=== PATIENT | female | born 1950 | race Caucasian/White ===

== ENCOUNTER 2020-02-26 10:15 | Emergency (ER) | payer MEDICARE, SELFPAY ==
--- NOTE | ~2020-02-26 | XR_ITS ---
EXAMINATION: XR chest 2V DATE: 02/26/2020 10:39 INDICATION: Chest pain and shortness of breath. TECHNIQUE: Frontal and lateral views of the chest were obtained. COMPARISON: Chest 2 views 12/10/2014 FINDINGS: There is mild scarring at the lung apices. No pleural effusion or pneumothorax. The heart s ize is normal. There is old fracture of left clavicle. There are old healed left rib fractures. Breas t implants are noted. IMPRESSION: 1. Mild scarring at the lung apices. Reviewed, dictated and finalized at location E.
--- NOTE | 2020-02-26 10:17 | ECG_ITS ---
Measurements Intervals [place] Rate: 54 P: 67 [place]: 236 QRS: -12 QRSD: 101 T: 17 QT: 449 QTc: 427 Interpretive Statements SINUS BRADYCARDIA WITH FIRST DEGREE AV BLOCK LEFT ATRIAL ENLARGEMENT BASELINE WANDER- I, II, AVR, AVL, AVF, V1-V6 ABNORMAL ECG Electronically Signed On 02-26-2020 10:35:51 CDT by Joey Oswald D.O.
--- NOTE | 2020-02-26 10:17 | ED.CHESTPAIN ---
HPI - Chest Pain General Chief Complaint: Chest Pain Stated Complaint: cp Time Seen by Provider: 02/26/20 10:17 Source: patient Mode of arrival: ambulatory Limitations: no limitations History of Present Illness HPI narrative: Patient is a 69-year-old female who presents for evaluation of chest pain. Chest pain occurred yesterday while the patient was gardening. Patient had 2 episodes approximately 10 minutes apart. The pain over her chest was described as centrally located, sharp, pressure in nature without radiation to the back, jaw, arm or shoulder. Associated with nausea and no diaphoresis without shortness of breath. Patient states that she sat down after being outside, and when she stood again the chest pain recurred. Patient states they went away on their own, called her primary care physician and was seen there this morning they referred to our facility. Patient without any current chest pain, shortness of breath today. No pleuritic pain. No calf swelling, leg pain or lower extremity swelling. Patient without history of [place] or hyperlipidemia. She has a history of hypertension. Patient follows with Dr. Coats, and was seen there this morning then referred to this facility. Related Data Home Medications Medication Instructions Recorded Confirmed budesonide-formoterol HFA 160 2 puff INHALATION Q12H 09/27/19 02/26/20 mcg-4.5 mcg/actuation aerosol inhaler Allergies Allergy/AdvReac Type Severity Reaction Status Date / Time Sulfa (Sulfonamide Allergy Unknown Nausea Verified 02/26/20 10:22 Antibiotics) Review of Systems Review of Systems: Narrative: CONSTITUTIONAL: Denies fever, chills, or sweats. EYES: Denies visual changes, redness, or discharge. ENT: Denies rhinorrhea, congestion, sore throat, or otalgia. CARDIOVASCULAR: Denies chest pain currently,denies current palpitations, or edema. RESPIRATORY: Denies cough or dyspnea. GASTROINTESTINAL: Denies abdominal pain, nausea, vomiting, or diarrhea. GENITOURINARY: Denies dysuria or hematuria. SKIN: Denies rash or itching. MUSCULOSKELETAL: Denies back pain, joint pain, or myalgia. NEUROLOGIC: Denies headache, numbness, or weakness. [facility] Past Medical History Medical History (Updated 02/26/20 @ 12:41 by Blossom Tesfaye MD) Asthma Chronic GERD Chronic kidney disease, stage 3 (moderate) Hypertensive chronic kidney disease with stage 1 through stage 4 chronic kidney disease, or unspecified chronic kidney disease Impaired fasting glucose Major depressive disorder JONELLE (obstructive sleep apnea) Surgical History Surgical History History of gastric surgery s/p gastric sleeve Family History Family History Mother Family history of diabetes mellitus in first degree relative Father Family history of coronary artery disease Social History Social History Smoking status: Never smoker Alcohol intake: never Substance use: never Substance use type: does not use Gender identity (if verbalized by the patient): Female Exam Narrative: Exam Narrative: GENERAL: Awake, alert, conversant HEAD: Normocephalic, atraumatic. EYES: PERRLA and EOMI. ENT: Nares clear, no rhinorrhea or epistaxis. Mucous membranes moist. NECK: Supple. CHEST: No respiratory distress, breathing even and non labored HEART: Regular rate, sinus rhythm ABDOMEN:Non distended, non tender EXTREMITIES: Normal range of motion. No edema. SKIN: Warm, dry, no rash. NEURO:No focal deficits. Alert and oriented x3 Course Vital Signs Vital signs: Vital Signs Temperature 36.8 C 02/26/20 10:18 Pulse Rate 61 02/26/20 10:18 Respiratory Rate 16 02/26/20 10:18 Blood Pressure 180/82 H 02/26/20 10:18 Pulse Oximetry 96 02/26/20 10:18 Temperature 36.8 C 02/26/20 10:18 Pulse Rate 52 L 02/26/20 10:55 Res
[2020-02-26 10:18] VITALS: BP 180/82; PULSE 61; RESP 16; TEMP 36.8; O2SAT 96
[2020-02-26 10:26] VITALS: PULSE 52
[2020-02-26 10:38] LABS: Basophils Percent Auto 0.4 % (0.2-1.2); Eosinophils Percent Auto 0.5 % (0-4.4); Hematocrit 41.4 % (37.0-47.0); Hemoglobin 13.7 g/dL (12.0-15.0); Immature Granulocyte Absolute 0.02 K/mm3 (0.00-0.031); Immature Granulocyte Percent A 0.2 % (0-0.5); Lymphocytes Absolute Auto 1.89 K/mm3 (0.9-3.2); Lymphocytes Percent Auto 22.1 % (18.3-44.2); Mean Corpuscular HGB Conc 33.1 g/dl (32-36); Mean Corpuscular Hemoglobin 31.6 pg (26-34); Mean Corpuscular Volume 95.4 fl (80-100); Mean Platelet Volume 10.1 fl (7.4-10.4); Monocytes Absolute Auto 0.6 K/mm3 (0.1-0.6); Monocytes Percent Auto 7.5 % (2.6-8.5); Neutrophils Absolute Auto 5.9 K/mm3 (1.3-6.7); Neutrophils Percent Auto 69.3 % (45.5-73.1); Platelet Count Result 215 k/mm3 (150-375); Red Blood Count 4.34 M/mm3 (4.2-5.4); Red Cell Distribution Width 13.2 % (11.5-14.5); White Blood Count 8.5 K/mm3 (4.5-10.0)
--- NOTE | 2020-02-26 10:39 | PC.NURSE ---
PT TAKEN TO RADIOLOGY AT THIS TIME.
[2020-02-26 10:48] LABS: Partial Thromboplastin Time 25.1 SECONDS (22.3-36.8); Prothrombin Time 13.1 Seconds (11.1-14.7)
[2020-02-26] MEDS: ASPIRIN 81 MG CHEWABLE TABLET 324 MG PO (10:52)
[2020-02-26 10:54] LABS: Blood Urea Nitrogen 30 mg/dL (7-17); Calcium 9.7 mg/dL (8.4-10.2); Carbon Dioxide 25 mmol/L (22-30); Chloride 103 mmol/L (98-107); Estimated CRCL calculation 40 ml/min; Estimated Glomerular Filt Rate 34; Glucose 101 mg/dL (65-105); Potassium 4.6 mmol/L (3.4-5.0); Sodium 135 mmol/L (137-145)
[2020-02-26 10:55] VITALS: BP 159/87; PULSE 52; RESP 19; O2SAT 97
[2020-02-26 11:05] LABS: Troponin I < 0.012 ng/mL (0.000-0.034)
[2020-02-26 13:20] LABS: Troponin I < 0.012 ng/mL (0.000-0.034)
[2020-02-26 13:26] VITALS: BP 165/75; PULSE 55; RESP 13; TEMP 36.3; O2SAT 96
== END 2020-02-26 13:36 | disposition home or self-care (01) ==
PROVIDERS: Emergency Provider Emergency Medicine; PCP Family Medicine
DX: R07.89 Other chest pain (principal); J45.909 Unspecified asthma, uncomplicated; K21.9 Gastro-esophageal reflux disease without esophagitis; I13.10 Hypertensive heart and chronic kidney disease without heart failure, with stage 1 through stage 4 chronic kidney disease, or unspecified chronic kidney disease; N18.3 Chronic kidney disease, stage 3 (moderate); G47.33 Obstructive sleep apnea (adult) (pediatric); Z98.84 Bariatric surgery status
CPT/HCPCS: 36415; 71046; 80048; 84484; 85025; 85610; 85730; 93005; 99284; A9270

== ENCOUNTER 2020-04-22 00:58 | Outpatient (CLI) | payer MEDICARE, SELFPAY ==
[2020-04-22 19:09] LABS: SARS-CoV-2 RNA PCR Negative
== END 2020-04-22 00:59 | disposition home or self-care (01) ==
LOC: ANHCOVIDDT 00:58
PROVIDERS: PCP Family Medicine; Visit Provider Internal Medicine Cardiovascular Disease
DX: Z01.812 Encounter for preprocedural laboratory examination (principal); Z11.59 Encounter for screening for other viral diseases
CPT/HCPCS: 87635; C9803; U0003

== ENCOUNTER 2020-04-24 05:32 | Day surgery (SDC) | payer MEDICARE, SELFPAY ==
[2020-04-23 16:17] VITALS: BMI 34.7
[2020-04-24] VITALS (19 sets, daily range): BP systolic 124–169; BP diastolic 71–108; PULSE 43–58; RESP 10–16; TEMP 35.8–36.4; O2SAT 94–99
[2020-04-24 07:56] LABS: Basophils Percent Auto 0.7 % (0.2-1.2); Eosinophils Absolute Auto 0.1 K/mm3 (0-0.3); Eosinophils Percent Auto 1.5 % (0-4.4); Hematocrit 39.1 % (37.0-47.0); Hemoglobin 12.7 g/dL (12.0-15.0); Immature Granulocyte Absolute 0.01 K/mm3 (0.00-0.031); Immature Granulocyte Percent A 0.2 % (0-0.5); Lymphocytes Absolute Auto 1.67 K/mm3 (0.9-3.2); Lymphocytes Percent Auto 27.7 % (18.3-44.2); Mean Corpuscular HGB Conc 32.5 g/dl (32-36); Mean Corpuscular Hemoglobin 31.6 pg (26-34); Mean Corpuscular Volume 97.3 fl (80-100); Mean Platelet Volume 9.8 fl (7.4-10.4); Monocytes Absolute Auto 0.5 K/mm3 (0.1-0.6); Monocytes Percent Auto 8.8 % (2.6-8.5); Neutrophils Absolute Auto 3.7 K/mm3 (1.3-6.7); Neutrophils Percent Auto 61.1 % (45.5-73.1); Platelet Count Result 193 k/mm3 (150-375); Red Blood Count 4.02 M/mm3 (4.2-5.4)
[2020-04-24 08:36] LABS: Blood Urea Nitrogen 29 mg/dL (7-17); Calcium 9.2 mg/dL (8.4-10.2); Carbon Dioxide 29 mmol/L (22-30); Chloride 105 mmol/L (98-107); Estimated CRCL calculation 40 ml/min; Estimated Glomerular Filt Rate 34; Glucose 104 mg/dL (65-105); Potassium 4.2 mmol/L (3.4-5.0); Sodium 139 mmol/L (137-145)
--- NOTE | 2020-04-24 09:04 | WPDHPUPDATE1 ---
History and Physical Update Update Date/Time: 04/24/20 09:04 History and Physical has been reviewed, including an updated exam of the patient. There are NO changes in the patient's condition. Risks, benefits, and alternatives have been discussed and questions answered. Patient agrees to proceed with procedure.
--- NOTE | 2020-04-24 09:04 | WPDMODSED ---
Moderate Sedation Note-Pt Data Patient Data Allergies Allergy/AdvReac Type Severity Reaction Status Date / Time Sulfa (Sulfonamide Allergy Unknown Nausea Verified 02/26/20 10:22 Antibiotics) Home Medications Medication Instructions Recorded Confirmed Type budesonide-formoterol HFA 160 2 puff INHALATION Q12H 09/27/19 04/23/20 History mcg-4.5 mcg/actuation aerosol inhaler fluoxetine 20 mg capsule 20 mg PO DAILY #90 cap 02/07/20 04/23/20 Rx indapamide 1.25 mg tablet 1.25 mg PO DAILY #90 tablet 02/07/20 04/23/20 Rx metoprolol succinate 25 mg 25 mg PO DAILY #90 tablet 02/07/20 04/23/20 Rx tablet,extended release 24 hr biotin 10 mg PO DAILY 04/23/20 04/23/20 History cyanocobalamin (vitamin B-12) 1,000 mcg PO DAILY 04/23/20 04/23/20 History ferrous sulfate 325 mg PO DAILY 04/23/20 04/23/20 History losartan 50 mg PO DAILY 04/23/20 04/23/20 History multivitamin 1 tablet PO DAILY 04/23/20 04/23/20 History pyridoxine (vitamin B6) 100 mg PO DAILY 04/23/20 04/23/20 History verapamil 240 mg PO DAILY 04/23/20 04/23/20 History vitamin B complex 1 tablet PO DAILY 04/23/20 04/23/20 History Current Medications: Active Medications Sodium Chloride (Normal Saline Iv) 500 mls @ 100 mls/hr IV CONT .Q5H SEAN Sedation/Anesthesia: No previous sedation/anesthesia problems (including family history). [facility] Past Medical History Medical History Asthma Chronic GERD Chronic kidney disease, stage 3 (moderate) Hypertensive chronic kidney disease with stage 1 through stage 4 chronic kidney disease, or unspecified chronic kidney disease Impaired fasting glucose Major depressive disorder JONELLE (obstructive sleep apnea) Surgical History Surgical History History of gastric surgery s/p gastric sleeve Family History Family History Mother Family history of diabetes mellitus in first degree relative Father Family history of coronary artery disease Social History Social History Smoking status: Never smoker Second hand tobacco smoke exposure: Yes Alcohol intake: never Substance use: never Substance use type: does not use Living arrangements: alone Gender identity (if verbalized by the patient): Female Spiritual care concerns: No Mod Sed Physical Exam Physical Exam Pre Procedural Exam: Normal: Appearance, Eyes, Ears, Nose, Neck, Throat, Airway, Lungs, Heart Size, Heart Rate, Heart Rhythm, Neuro Exam, Abdomen, Liver, Kidneys, Spleen, Breasts, Genitalia, Extremities and Skin Hours since solid foods: 8 Hours since liquid intake: 8 Internal Medicine - PN: Obj Da Vital Signs Vital Signs: Vital Signs - 24 hr 04/24/20 07:45 Temperature 36.1 C L Pulse Rate 54 L Respiratory Rate 10 L Blood Pressure 165/108 H Pulse Oximetry 99 Meds/Results Medications: Active Medications Generic Name Dose Route Start Last Admin Trade Name Freq PRN Reason Stop Dose Admin Sodium Chloride 500 mls @ 100 mls/hr 04/24/20 06:15 Normal Saline Iv IV CONT .Q5H SEAN Labs CBC & Chem 7: 04/24/20 07:30 04/24/20 08:19 Labs: Laboratory Results - last 24 hr 04/24/20 04/24/20 07:30 08:19 WBC 6.0 RBC 4.02 L Hgb 12.7 Hct 39.1 MCV 97.3 MCH 31.6 MCHC 32.5 RDW 13.0 Plt Count 193 MPV 9.8 Immature Gran % (Auto) 0.2 Neut % (Auto) 61.1 Lymph % (Auto) 27.7 Garden % (Auto) 8.8 H Eos % (Auto) 1.5 Baso % (Auto) 0.7 Lymph # (Auto) 1.67 Garden # (Auto) 0.5 Eos # (Auto) 0.1 Baso # (Auto) 0.0 Abs Immat Gran (auto) 0.01 Absolute Neuts (auto) 3.7 Absolute Nucleated RBC 0.0 Nucleated RBC % 0.0 Sodium 139 Potassium 4.2 Chloride 105 Carbon Dioxide 29 BUN 29 H Creatinine 1.50 H Estim Creat Clear Calc 40 Estimated GFR 34
--- NOTE | 2020-04-24 10:34 | P.PCNCC_ITS ---
Cardiac Cath Procedure Note Date of procedure:: 04/24/20 Performing physician:: Preet Young MD Date of service 04/24/2020 Indication:: chest pain Brief clinical history:: this is 69-year-old female with past medical history of hypertension, obesity, and anxiety was evaluated by Dr. Queen for chest pain. She had a stress test that was negative for ischemia but continued to have chest pain and therefore she was brought into director of labor relations to define coronary anatomy. Procedure Procedure performed:: 1-Moderate sedation that started at 9: 31 amand ended at 10: 22 am The total duration 51 minutes using 5mg of Versed and 100mcg fentanyl. The registered nurse was Joshua Glass. 2-Selective left and right coronary angiogram. 3-Left heart catheterization with measurement of LVEDP and measurement of gradient across aortic valve. 4- peripheral arterial angiogram of distal aorta, bilateral common, external iliac arteries and bilateral common femoral arteries. Sedation/Medication given:: Moderate sedation. Access site:: Right common femoral artery. Estimated blood loss:: 10cc Procedure note:: After informed consent patient was brought in to director of labor relations with the was draped and prepped in usual manner. Moderate sedation was given and the right groin was infiltrated using 1% lidocaine. we attempted several times to pass the micro puncture needle without success because of inability to pass the wire. At that time we switched to the left groin that was infiltrated using 1% lidocaine. Five Sami sheath was obtained using micropuncture needle and the modified Seldinger technique. Selective left coronary angiogram was done using JL4 catheter with the tip of the catheter placed in the left main coronary artery. Selective right coronary angiogram was done using JR4 catheter with the tip of the catheter placed to the right coronary artery. After that 5 Sami pigtail catheter was advanced across the aortic valve into the left ventricle with measurement of LVEDP and measurement of gradient across aortic valve. because of the difficulty of passing the wire on the right side we decided to take a peripheral angiogram to define the peripheral circulation. Findings:: 1- left coronary artery is a large artery that divides into large LAD, large circumflex artery. Left main is Free of disease. 2- left anterior descending artery is a large artery that runs and wraps around the apex. It is free of disease. Proximally gives ostial large diagonal 1 branch that looks unremarkable. 3- leftcircumflex artery is a large artery And dominant and free of disease. Distally gives rise to a large OM1 branch that is free of disease and left PDA that is free disease. 4- right coronary artery is Small and nondominant free of disease. 5- LVEDP was 18 mm of mercury and no gradient across aortic valve. 6- opening arterial pressure was 120/60 and closing pressure was 160/80. 7- peripheral arterial angiogram shows no disease in the distal lower thigh, bilateral common iliacs, bilateral external iliacs and the bilateral common femoral arteries. Most likely the difficulty of passing the micropuncture wire on the right side is related to the fact that the wire may be have went into a small branch. but there is no disease in the peripheral arteries. Conclusion:: No coronary artery disease Assessment and Plan Additional Plan continue risk factor modification for CAD. optimize blood pressure control.
--- NOTE | 2020-04-24 10:35 | SUR.PHASEII ---
BEGIN PHASE II RECOVERY. RETURNS TO LOGISTICS PROGRAM MANAGER 5 S/ P [facility] W/ DR. TO. 5FR SHEATH INTACT L. GROIN. SITE CLEAR. GUAZE DRESSING C/D/I. NO BLEEDING OR HEMATOMA NOTED. L. PEDAL PULSE STRONG. DENIES PAIN OR SOB. SB ON MONITOR. REVIEWED POST PROCEDURE ACTIVITY RESTRICTIONS WHILE ON BEDREST. VOICED UNDERSTANDING OF ALL. WILL MONITOR.
--- NOTE | 2020-04-24 11:27 | SUR.PHASEII ---
FENTANYL 50MCG IVP HAS BEEN GIVEN PRE SHEATH PULL BY RONAN Cardenas RN. 5FR. L. GROIN SHEATH MANUALLY REMOVED BY THIS RN PER PROTOCOL AT THIS TIME. TOLERATED PULL WELL AND IS TOLERATING FIRM STEADY PRESSURE TO PUNCTURE SITE. IVF'S RUNNING ORDERED. WILL HOLD MANUAL PRESSURE TO L. GROIN PUNCTURE SITE UNTIL HEMOSTASIS. WILL CONTINUE TO MONITOR CLOSELY.
--- NOTE | 2020-04-24 11:57 | SUR.PHASEII ---
HEMOSTASIS ACHIEVED TO L. GROIN PUNCTURE SITE AFTER 30 MINUTES FIRM, STEADY MANUAL PRESSURE HOLD. TOLERATED WELL. VSS. DENIES PAIN OR SOB. L. GROIN SITE NONTENDER, NO BLEEDING OR HEMATOMA NOTED. SITE DRESSED W/ STAT SEAL AND TEGADERM DRESSING. L. PEDAL PULSE IS STRONG. AGAIN REVIEWED BEDREST ACTIVITY RESTRICTIONS W/ PT AND ORDERS ARE FOR 5 HOURS BEDREST UNTIL 1700. VOICED UNDERSTANDING. WILL CONTINUE TO MONITOR. R. GROIN CHAIN MAKER MACHINE ATTEMPTED STICK SITE CLEAR. NO OOZE NOTED.
--- NOTE | 2020-04-24 13:15 | SUR.PHASEII ---
HOB UP 30 DEGREES. LUNCH SERVED. VSS. NO CHANGE IN STATUS OF DRESSING OR L. GROIN SITE. WILL CONTINUE TO MONITOR.
--- NOTE | 2020-04-24 17:00 | SUR.PHASEII ---
BEDREST X 5 HOURS COMPLETE. TOLERATED WELL. L. GROIN SITE DRESSING REMAINS C/D/I; SITE SOFT, NONTENDER. NO BLEEDING OR HEMATOMA NOTED. SMALL BRUISE NOTED TO L. LATERAL HIP. L. PEDAL PULSE STRONG. R. GROIN ATTEMPTED STICK SITE JENNIFER, CLEAR. DANGLED FEET AT BEDSIDE, AMBULATED TO BATHROOM TO VOID, THEN RETURNED TO CHAIR. STEADY GAIT. TOLERATED WELL. L. GROIN AND R. GROIN UNCHANGED AFTER ACTIVITY. VSS. WILL CONTINUE TO MONITOR. DECLINES SUPPER TRAY OFFER.
--- NOTE | 2020-04-24 18:30 | SUR.PHASEII ---
END PHASE II RECOVERY. SON [place], HERE TO TAKE PT. HOME. PT IS DRESSED. IV IS OUT. ALL DISCHARGE INSTRUCTIONS, WOUND CARE, FOLLOW UP CARE GIVEN AND REVIEWED W/ PT. ALL QUESTIONS ANSWERED. VOICED UNDERSTANDING OF ALL. L. GROIN SITE REMAINS UNCHANGED, C/D/I. R. GROIN UNCHANGED. L. PEDAL PULSE STRONG. DISCHARGED HOME, OUT VIA WC WITH ALL PERSONAL BELONGINGS, DISCHARGE PACKET TO SON- IN -LAW'S WAITING CAR. VOICES NO C/O, NO DISTRESS NOTED.
== END 2020-04-24 18:30 | disposition home or self-care (01) ==
PROVIDERS: PCP Family Medicine; Visit Provider Internal Medicine Cardiovascular Disease
PROC: 4A023N7 Measurement of Cardiac Sampling and Pressure, Left Heart, Percutaneous Approach (ICD-10-PCS; CPT 93452; principal; 2020-04-24 09:00)
PROC: (CPT 75625; 2020-04-24 09:00)
DX: R07.9 Chest pain, unspecified (principal); I12.9 Hypertensive chronic kidney disease with stage 1 through stage 4 chronic kidney disease, or unspecified chronic kidney disease; N18.3 Chronic kidney disease, stage 3 (moderate); J45.909 Unspecified asthma, uncomplicated; K21.9 Gastro-esophageal reflux disease without esophagitis; G47.33 Obstructive sleep apnea (adult) (pediatric); E66.9 Obesity, unspecified; F41.9 Anxiety disorder, unspecified; F32.9 Major depressive disorder, single episode, unspecified; Z98.84 Bariatric surgery status; Z79.899 Other long term (current) drug therapy
CPT/HCPCS: 36140; 36415; 75625; 80048; 85025; 93458; C1887; C1894; J0461; J1644; J2250; J3010; J7040

== ENCOUNTER 2020-11-14 09:30 | Outpatient (CLI) | payer MEDICARE, SELFPAY ==
[2020-11-14 18:37] LABS: Hemoglobin 14.2 g/dL (12.0-15.0); Mean Corpuscular HGB Conc 32.3 g/dl (32-36); Mean Corpuscular Hemoglobin 32.1 pg (26-34); Mean Corpuscular Volume 99.3 fl (80-100); Mean Platelet Volume 10.2 fl (7.4-10.4); Platelet Count Result 216 k/mm3 (150-375); Red Blood Count 4.43 M/mm3 (4.2-5.4); Red Cell Distribution Width 13.2 % (11.5-14.5)
[2020-11-14 18:41] LABS: Add Urine Microscopic? YES; Appearance Urine Clear (Clear); Bilirubin Urine Negative (Negative); Blood Urine Negative (Negative); Color Urine Yellow (Yellow); Glucose Urine UA Negative (Negative); Ketones Urine Negative (Negative); Leukocyte Esterase Ur Trace LEU/UL (Negative); Mucus Urine Rare /lpf; Nitrate Urine Negative (Negative); Protein Urine 1+ mg/dL (Negative); RBC Urine 0-2 /hpf (0-2); Specific Grav Ur 1.018 (1.001-1.035); Squamous Epithelial Cell Urine Moderate /hpf (Few); Urobilinogen Urine Negative mg/dL (<2.0)
[2020-11-14 18:49] LABS: IFOB Positive Control Positive; Immunochemical Fecal Occult Bl Positive (N)
[2020-11-14 18:55] LABS: Alanine Aminotransferase 31 U/L (4-35); Albumin Level 4.3 g/dL (3.5-5.1); Alkaline Phosphatase 106 U/L (38-126); Anion Gap 6 mmol/L (8-16); Aspartate Amino Transferase 37 U/L (14-36); Bilirubin,Total 0.6 mg/dL (0.2-1.3); Blood Urea Nitrogen 27 mg/dL (7-17); CRP < 0.5 mg/dL (<1.0); Calcium 9.8 mg/dL (8.4-10.2); Carbon Dioxide 30 mmol/L (22-30); Chloride 104 mmol/L (98-107); Cholesterol 173 mg/dL (0-200); Estimated Glomerular Filt Rate 40; Glucose 117 mg/dL (65-105); HDL Direct 66 mg/dL; Potassium 4.2 mmol/L (3.4-5.0); Sodium 140 mmol/L (137-145); Triglycerides 137 mg/dL (<150)
[2020-11-14 19:04] LABS: LDL Cholesterol Direct 84 mg/dL
[2020-11-14 19:09] LABS: Hemoglobin A1C 5.4 % (<5.7)
[2020-11-14 19:10] LABS: Free T4 Free Thyroxine 1.25 ng/mL (0.78-2.19)
[2020-11-14 19:19] LABS: Eosinophils Absolute Manual 1.89 K/mm3 (0.02-0.5); Eosinophils Percent Manual 27 % (0-4); Lymphocytes Absolute Manual 1.89 K/mm3 (1.1-4.5); Monocytes Absolute Manual 0.56 K/mm3 (0.1-0.90); Monocytes Percent Manual 8 % (3-9); Neutrophils Percent Manual 38 % (46-73); Platelet Estimate Adequate (Adequate); Total Cells Counted 100
[2020-11-14 20:07] LABS: Folic Acid > 20.0 ng/mL (2.76->20); Vitamin B12 > 1000.0 pg/mL (239-931)
[2020-11-18 06:36] LABS: C-Peptide 3.35 ng/mL (0.80-3.85)
[2020-11-18 06:37] LABS: Triiodothyronine T3 Free 3.4 pg/mL (2.3-4.2)
[2020-11-18 11:20] LABS: T3 Reverse 18 ng/dL (8-25)
== END 2020-11-14 09:31 | disposition home or self-care (01) ==
PROVIDERS: PCP Family Medicine; Visit Provider Family Medicine
DX: J45.909 Unspecified asthma, uncomplicated (principal); K21.9 Gastro-esophageal reflux disease without esophagitis; I12.9 Hypertensive chronic kidney disease with stage 1 through stage 4 chronic kidney disease, or unspecified chronic kidney disease; R73.01 Impaired fasting glucose; F32.9 Major depressive disorder, single episode, unspecified; G47.33 Obstructive sleep apnea (adult) (pediatric); M31.30 Wegener's granulomatosis without renal involvement; K11.20 Sialoadenitis, unspecified; R79.89 Other specified abnormal findings of blood chemistry; R53.83 Other fatigue; R73.9 Hyperglycemia, unspecified; Z79.899 Other long term (current) drug therapy; G25.81 Restless legs syndrome; N18.30 Chronic kidney disease, stage 3 unspecified
CPT/HCPCS: 36415; 80053; 80061; 81001; 82274; 82306; 82607; 82746; 83036; 84439; 84443; 84481; 84482; 84681; 85025; 86140

== ENCOUNTER 2020-12-05 13:43 | Outpatient (CLI) | payer MEDICARE, SELFPAY ==
--- NOTE | ~2020-12-05 | MM_ITS ---
EXAMINATION: MM scrn kwesi implant BI w rosas HISTORY: Screening mammogram, family history of breast cancer in her mother. TECHNIQUE: Craniocaudal and mediolateral oblique 3-D tomosynthesis images with implant displacement a nd synthetic 2-D images were generated. Craniocaudal and mediolateral oblique views of the breasts wi thout implant displacement were obtained using full field digital mammography. CAD analysis was submi tted and interpreted. COMPARISON: 12/25/2015 BREAST PARENCHYMAL COMPOSITION: There are scattered areas of fibroglandular density. FINDINGS: There is a ruptured right breast implant. There is no evidence of suspicious mass, calcific ation, or architectural distortion to suggest malignancy in either breast. There has been no suspicio us interval change. IMPRESSION: 1. No mammographic evidence of malignancy. 2. Recommend routine screening mammography in one year. BI-RADS Category 1: Negative Reviewed, dictated and finalized at location A. CAR SUPERVISOR
--- NOTE | ~2020-12-05 | DEXA_ITS ---
Bone Density Report Name: Rosita Flores Age: 70 Sex: Female Ethnicity: White Date of : 1950 Indication: postmenopausal; height loss; asthma or emphysema; Referring Provider: Adam Ortiz Study: Bone densitometry was performed. Exam Date: December 05, 2020 Accession number: [id number] Bone Density: Region BMD T-score Z-score Classification AP Spine (L2, L3, L4) 0.985 -0.9 1.4 Normal Femoral Neck (Left) 0.805 -0.4 1.5 Normal Total Hip (Left) 0.960 0.1 1.7 Normal Total Hip Bilateral Avg 0.952 0.1 1.7 Normal Femoral Neck (Right) 0.775 -0.7 1.2 Normal Total Hip (Right) 0.943 0.0 1.6 Normal World Health Organization criteria for BMD impression classify patients as: Normal (T-score at or above -1.0), Osteopenia (T-score between -1.0 and -2.5), or Osteoporosis (T-score at or below -2.5). 10-year Fracture Risk: FRAX not reported because: All T-scores for Spine Total, Hip Total, Femoral Neck at or above -1.0 Clinical Information Provided by Patient: Has the following medical conditions: Asthma or Emphysema Patient maximum height was 68 Menopause Age: 57 No regular weight bearing exercise Drinks caffeinated beverages Onset of menses at age 12 Number of children 1 Impression: The patient has normal bone mass. Discussion: BONE DENSITY IS ABOVE THE MINIMUM DESIRABLE LEVEL AT ALL SKELETAL SITES TESTED. This patient?s bone mineral density is above the minimum desirable level (T-score -1.0 or better) at all sites measured. The patient should follow a healthful lifestyle (good nutrition with adequate calcium and vitamin D, and appropriate weight-bearing exercise). Follow-Up: Consider repeating this study in 5 years or sooner if there is some new clinical indication. Reported by: [facility] on 12/05/2020 2:20:00 PM. Reviewed, dictated and finalized at location ARogelio [facility]
== END 2020-12-05 13:44 | disposition home or self-care (01) ==
LOC: ANHIMG 13:46
PROVIDERS: PCP Family Medicine; Visit Provider Family Medicine
DX: Z12.31 Encounter for screening mammogram for malignant neoplasm of breast (principal); Z13.820 Encounter for screening for osteoporosis; Z78.0 Asymptomatic menopausal state
CPT/HCPCS: 77063; 77067; 77080

== ENCOUNTER 2021-01-16 11:25 | Outpatient (CLI) | payer MEDICARE, SELFPAY ==
--- NOTE | ~2021-01-16 | XR_ITS ---
EXAMINATION: XR lumbar spine 2-3V DATE: 01/16/2021 11:53 INDICATION: Low back pain TECHNIQUE: Anteroposterior and lateral views of the lumbar spine, and cone-down lateral view of the l umbosacral junction were obtained. COMPARISON: None. FINDINGS: Evaluation mildly limited by patient body habitus. Bone alignment is normal. Vertebral body heights a re normal. Mild disc height loss at L4-L5. Mild degenerative endplate changes without disc height los s at L2-L3. Multilevel mild lumbar facet osteoarthritis. Bilateral hip and sacroiliac joint spaces ar e relatively preserved. IMPRESSION: 1. Mild lumbar spondylosis. Reviewed, dictated and finalized at location B. IMPRESSION: 1. Mild lumbar spondylosis.
--- NOTE | ~2021-01-16 | XR_ITS ---
EXAMINATION: XR hip RT 1V w AP pelvis DATE: 01/16/2021 11:52 INDICATION: Right hip pain TECHNIQUE: Anteroposterior view of the right hip and pelvis and frog-leg lateral view of the right hi p were obtained. COMPARISON: None. FINDINGS: Alignment is normal. No fracture or suspected avascular necrosis. Bilateral hip and sacroiliac joint spaces are normal. IMPRESSION: 1. Negative right hip and pelvis radiographs. Reviewed, dictated and finalized at location B.
--- NOTE | ~2021-01-16 | XR_ITS ---
EXAMINATION: XR knee RT 2V DATE: 01/16/2021 11:53 INDICATION: Right knee pain. TECHNIQUE: 2 views of right knee were obtained. COMPARISON: None. FINDINGS: Bone alignment is normal. No fracture. There is mild tricompartmental osteoarthritis. No kn ee joint effusion. IMPRESSION: 1. Mild right knee osteoarthritis. Reviewed, dictated and finalized at location A.
[2021-01-16 19:14] LABS: Add Urine Microscopic? YES; Appearance Urine Cloudy (Clear); Bilirubin Urine Negative (Negative); Blood Urine Negative (Negative); Color Urine Yellow (Yellow); Glucose Urine UA Negative (Negative); Hyaline Casts Urine 15-19 /lpf; Ketones Urine Negative (Negative); Leukocyte Esterase Ur 1+ LEU/UL (NEGATIVE); Mucus Urine Rare /lpf; Nitrate Urine Negative (Negative); Protein Urine 1+ mg/dL (Negative); Specific Grav Ur 1.023 (1.001-1.035); Squamous Epithelial Cell Urine Occasional /hpf (Few); Transitional Epi Cells Urine Rare /hpf (None Seen); Urobilinogen Urine Negative mg/dL (<2.0); WBC Urine 16-20 /hpf (0-3)
== END 2021-01-16 11:26 | disposition home or self-care (01) ==
LOC: ANHBWCIMG 11:30
PROVIDERS: PCP Family Medicine; Visit Provider Family Medicine
DX: Z87.898 Personal history of other specified conditions (principal); M25.551 Pain in right hip; M47.896 Other spondylosis, lumbar region; M17.11 Unilateral primary osteoarthritis, right knee
CPT/HCPCS: 72100; 73501; 73560; 81001; 87077; 87086; 87088; 87147; 87181; 87186

== ENCOUNTER 2021-04-28 15:40 | Outpatient (CLI) | payer MEDICARE, SELFPAY ==
[2021-04-29 10:41] LABS: Add Urine Microscopic? YES; Appearance Urine Clear (Clear); Bacteria Urine Trace /hpf; Bilirubin Urine Negative (Negative); Calcium Oxalate Crystals Urine Present /hpf; Color Urine Yellow (Yellow); Glucose Urine UA Negative (Negative); Ketones Urine Negative (Negative); Leukocyte Esterase Ur 1+ LEU/UL (Negative); Nitrate Urine Negative (Negative); Protein Urine Negative (Negative); RBC Urine 0-2 /hpf (0-2); Specific Grav Ur 1.024 (1.001-1.035); Squamous Epithelial Cell Urine Occasional /hpf (Few); Transitional Epi Cells Urine Rare /hpf (None Seen); Urobilinogen Urine Negative mg/dL (<2.0)
[2021-04-29 11:14] LABS: Blood Urine Negative (Negative)
== END 2021-04-28 15:41 | disposition home or self-care (01) ==
LOC: ANHBWCLAB 15:42
PROVIDERS: PCP Family Medicine; Visit Provider Family Medicine
DX: N39.0 Urinary tract infection, site not specified (principal); Z79.899 Other long term (current) drug therapy
CPT/HCPCS: 81001; 87086; 87088

== ENCOUNTER → 2021-06-18 09:11 | Outpatient (CLI) | payer MEDICARE, SELFPAY ==
[2021-06-18 20:44] LABS: SARS-CoV-2 RNA PCR Negative
== END ==
PROVIDERS: PCP Family Medicine; Visit Provider Family Medicine
DX: R06.02 Shortness of breath (principal); R05 Cough; J32.9 Chronic sinusitis, unspecified; R51.9 Headache, unspecified; Z20.822 Contact with and (suspected) exposure to COVID-19
CPT/HCPCS: C9803; U0003; U0005

== ENCOUNTER 2021-10-24 12:32 | Emergency (ER) | payer OTHER, SELFPAY ==
--- NOTE | 2021-10-24 12:39 | ED.GENADULT ---
HPI - General Adult General Chief complaint: Upper Respiratory Infection Stated complaint: sore throat/cough Time Seen by Provider: 10/24/21 12:39 Source: patient Mode of arrival: ambulatory Limitations: no limitations History of Present Illness HPI narrative: 71-year-old female patient presents to the [facility] with complaints of sore throat, cough, headaches and cold-like symptoms for the past 3 to 4 days. Patient states she is fully vaccinated against COVID as well as had a booster shot. Patient states she does have history of asthma so she is kind of short of breath overall all the time but does not see any worsening shortness of breath. Patient denies any chest pain at this time. Patient states she is here to get a COVID test. Related Data Allergies Allergy/AdvReac Type Severity Reaction Status Date / Time adhesive tape Allergy Intermediate itch and a Verified 10/24/21 12:49 rash Sulfa (Sulfonamide Allergy Unknown Nausea Verified 10/24/21 12:49 Antibiotics) Review of Systems Review of Systems: CONSTITUTIONAL: Denies fever, chills, or sweats. EYES: Denies visual changes, redness, or discharge. ENT: Positive rhinorrhea, congestion, sore throat, denies otalgia. CARDIOVASCULAR: Denies chest pain, palpitations, or edema. RESPIRATORY: Positive cough with intermittent dyspnea. GASTROINTESTINAL: Denies abdominal pain, nausea, vomiting, or diarrhea. GENITOURINARY: Denies dysuria or hematuria. SKIN: Denies rash or itching. MUSCULOSKELETAL: Denies back pain, joint pain, or myalgia. NEUROLOGIC: Positive headache, denies numbness, or weakness. PSYCHIATRIC: Denies anxiety or depression. [facility] Past Medical History Medical History (Updated 10/24/21 @ 13:06 by JAIDEN Roberson) Asthma Chronic GERD Chronic kidney disease, stage 3 (moderate) Hypertensive chronic kidney disease with stage 1 through stage 4 chronic kidney disease, or unspecified chronic kidney disease Impaired fasting glucose Major depressive disorder JONELLE (obstructive sleep apnea) Surgical History Surgical History History of gastric surgery s/p gastric sleeve Family History Family History Mother Family history of diabetes mellitus in first degree relative Father Family history of coronary artery disease Social History Social History Smoking status: Never smoker Second hand tobacco smoke exposure: Yes Alcohol intake: never Substance use: never Substance use type: does not use Gender identity (if verbalized by the patient): Female Spiritual care concerns: No Agree to blood products: Yes Comments At the time of my signature I agree with nursing past medical history, surgical, social, and family history. There is no relevant family history pertinent to the presenting complaint. Exam Narrative: GENERAL: ill-appearing, well-nourished, and in no acute distress. HEAD: Normocephalic, atraumatic. EYES: PERRLA and EOMI. ENT: Nares with erythema and edema noted bilaterally,, no active rhinorrhea or epistaxis. Mucous membranes moist. Bilateral TMs are clear no erythema or foreign body to the canal. Posterior pharynx with no erythema, tonsillar joint, exudates or lesions present. NECK: Supple. No lymphadenopathy CHEST: Clear to auscultation. No respiratory distress. HEART: Regular rate and rhythm. No murmur heard. Normal peripheral pulses. ABDOMEN: Soft, nontender, nondistended, normal active bowel sounds. EXTREMITIES: Normal range of motion. No edema. SKIN: Warm, dry, no rash. NEURO: No focal deficits. Alert and oriented x3. Course Course Level of Care: Express Care Visit Vital Signs Vital signs: Vital Signs Temperature 36.8 C 10/24/21 12:41 Pulse Rate 70 10/24/21 12:41 Respiratory Rate 16 10/24/21 12:41 Blood Pressure 155/80 H 10/24/21 12:41 Pulse O
[2021-10-24 12:41] VITALS: BP 155/80; PULSE 70; RESP 16; TEMP 36.8; O2SAT 98
[2021-10-24 12:50] VITALS: BP 155/80; PULSE 70; RESP 16; TEMP 36.8; O2SAT 98
[2021-10-25 15:55] LABS: SARS-CoV-2 RNA PCR Positive
== END 2021-10-24 13:15 | disposition home or self-care (01) ==
PROVIDERS: Emergency Provider Nurse Practitioner Family; PCP Family Medicine
DX: U07.1 COVID-19 (principal); J45.909 Unspecified asthma, uncomplicated; K21.9 Gastro-esophageal reflux disease without esophagitis; I12.9 Hypertensive chronic kidney disease with stage 1 through stage 4 chronic kidney disease, or unspecified chronic kidney disease; N18.30 Chronic kidney disease, stage 3 unspecified; G47.33 Obstructive sleep apnea (adult) (pediatric); Z98.84 Bariatric surgery status; F32.9 Major depressive disorder, single episode, unspecified
CPT/HCPCS: 99213; C9803; G0463; U0003; U0005

== ENCOUNTER 2022-03-22 09:50 | Inpatient (IN) | payer OTHER, MEDICAID, SELFPAY ==
[2022-03-22] VITALS (13 sets, daily range): BP systolic 115–210; BP diastolic 63–121; PULSE 75–93; RESP 16–24; TEMP 36.2–36.7; O2SAT 92–99; BMI 36.6
--- NOTE | ~2022-03-22 | XR_ITS ---
EXAMINATION: XR chest 2V DATE: 03/22/2022 10:31 INDICATION: Shortness of breath TECHNIQUE: PA and lateral views of the chest were obtained. COMPARISON: Chest radiograph dated 02/26/2020 FINDINGS: Opacities at the lateral lower lung zones. Blunting at the costophrenic angles and posterior sulci co nsistent with small bilateral pleural effusions. Mild pleural parenchymal scarring at the right apex. No pneumothorax. The cardiomediastinal silhouette is normal. Old bilateral rib fractures. IMPRESSION: 1. Opacities in the lower lung zones which could represent mild pulmonary edema, atelectasis or pneum onia. 2. Small bilateral pleural effusions. Reviewed, dictated and finalized at location A. IMPRESSION: 1. Opacities in the lower lung zones which could represent mild pulmonary edema , atelectasis or pneumonia. 2. Small bilateral pleural effusions.
--- NOTE | ~2022-03-22 | XR_ITS ---
EXAMINATION: XR chest 2V DATE: 03/26/2022 13:32 INDICATION: Shortness of breath. TECHNIQUE: Frontal and lateral views of the chest were obtained. COMPARISON: Chest single view 03/24/2022 FINDINGS: There is mild scarring at the lung apices. No pleural effusion or pneumothorax. The heart s ize is normal. There is an old healed fracture of left clavicle. There are old healed left rib fractu res. IMPRESSION: 1. Mild scarring at the lung apices. Reviewed, dictated and finalized at location B.
--- NOTE | ~2022-03-22 | US_ITS ---
EXAMINATION: US venous doppler [facility] DATE: 03/23/2022 14:34 INDICATION: Lower limb pain TECHNIQUE: Grayscale ultrasound images without and with compression and Doppler ultrasound images of the bilateral lower extremity veins were obtained. COMPARISON: 08/06/2015 FINDINGS: The visualized portions of right common femoral vein, profunda (deep) femoral vein, femoral vein, pop liteal vein, posterior tibial veins, peroneal veins and greater saphenous vein outflow are patent. The visualized portions of left common femoral vein, profunda femoral vein, femoral vein, popliteal v ein, posterior tibial veins, peroneal veins and greater saphenous vein outflow are patent. IMPRESSION: 1. No deep venous thrombosis in either lower limb. Reviewed, dictated and finalized at location A.
--- NOTE | ~2022-03-22 | XR_ITS ---
EXAMINATION: XR chest 1V portable DATE: 03/24/2022 09:22 INDICATION: Cough TECHNIQUE: frontal view of the chest was obtained. COMPARISON: Chest radiograph dated 03/22/2022 FINDINGS: Asymmetric increased opacity in the left mid to lower lung zone and which extends peripheral to the r ibs likely related to a left breast implant. There is pulmonary vascular congestion with decrease in the interstitial pattern appears significantly lower lung zones consistent with improving now minimal pulmonary edema. Decreased now very small bilateral pleural effusions. No pneumothorax. The cardiome diastinal silhouette is normal. Old bilateral rib fractures and old left clavicle fracture with malun ion. IMPRESSION: 1. Decreasing now minimal pulmonary edema at the lower lung zones and very small bilateral pleural ef fusions. Reviewed, dictated and finalized at location A. IMPRESSION: 1. Decreasing now minimal pulmonary edema at the lower lung zones and very smal l bilateral pleural effusions.
--- NOTE | 2022-03-22 09:52 | ECG_ITS ---
Measurements Intervals [place] Rate: 83 P: 60 [place]: 260 QRS: 50 QRSD: 86 T: 41 QT: 377 QTc: 443 Interpretive Statements SINUS RHYTHM WITH FIRST DEGREE AV BLOCK LEFT ATRIAL ENLARGEMENT [-0.15mV P WAVE IN V1/V2] LOW QRS VOLTAGE IN PRECORDIAL LEADS [QRS DEFLECTION < 1.0 mV IN CHEST LEADS] CANNOT RULE OUT ANTEROSEPTAL MYOCARDIAL INFARCTION , OLD COMPARED TO ECG 02/26/2020 10:25:38 SINUS RHYTHM NOW PRESENT NO SIGNIFICANT CHANGE Electronically Signed On 03-22-2022 16:22:49 CDT by Carlos Mcclelland M.D.
[2022-03-22 10:16] LABS: Basophils Percent Auto 0.4 % (0.2-1.2); Eosinophils Absolute Auto 1.3 K/mm3 (0-0.3); Eosinophils Percent Auto 13.4 % (0-4.4); Hematocrit 41.3 % (37.0-47.0); Hemoglobin 13.2 g/dL (12.0-15.0); Immature Granulocyte Absolute 0.03 K/mm3 (0.00-0.031); Immature Granulocyte Percent A 0.3 % (0-0.5); Lymphocytes Absolute Auto 1.32 K/mm3 (0.9-3.2); Lymphocytes Percent Auto 13.9 % (18.3-44.2); Mean Corpuscular Hemoglobin 31.3 pg (26-34); Mean Corpuscular Volume 97.9 fl (80-100); Mean Platelet Volume 9.5 fl (7.4-10.4); Monocytes Absolute Auto 0.8 K/mm3 (0.1-0.6); Monocytes Percent Auto 8.6 % (2.6-8.5); Neutrophils Percent Auto 63.4 % (45.5-73.1); Platelet Count Result 176 k/mm3 (150-375); Red Blood Count 4.22 M/mm3 (4.2-5.4); Red Cell Distribution Width 13.8 % (11.5-14.5); White Blood Count 9.5 K/mm3 (4.5-10.0)
[2022-03-22 10:29] LABS: Alanine Aminotransferase 27 U/L (6-35); Albumin Level 4.1 g/dL (3.5-5.1); Alkaline Phosphatase 90 U/L (38-126); Anion Gap 7 mmol/L (8-16); Aspartate Amino Transferase 34 U/L (14-36); Blood Urea Nitrogen 30 mg/dL (7-17); Calcium 9.3 mg/dL (8.4-10.2); Carbon Dioxide 27 mmol/L (22-30); Chloride 107 mmol/L (98-107); Estimated CRCL calculation 43 ml/min; Estimated Glomerular Filt Rate 40; Glucose 145 mg/dL (65-110); Potassium 4.2 mmol/L (3.4-5.0); Sodium 141 mmol/L (137-145)
[2022-03-22 10:38] LABS: Platelet Estimate Adequate (Adequate)
[2022-03-22 10:43] LABS: Stomatocytes 1+ (NORMAL)
[2022-03-22] MEDS: IPRATROPIUM BR 0.02% INH SOLN 0.5 MG/2.5 ML VIAL INHALATION (12:20)
[2022-03-22] MEDS: ALBUTEROL SULFATE NEB 2.5 MG/3 ML INH INHALATION (12:20)
[2022-03-22 12:52] LABS: NT Pro B Type Natriuretic Pept 5670 pg/mL (5-100)
--- NOTE | 2022-03-22 12:56 | ED.SOB ---
HPI - SOB/Dyspnea General Chief Complaint: Shortness of Breath/Dyspnea Stated Complaint: shortness of breath Time Seen by Provider: 03/22/22 12:02 History of Present Illness HPI Narrative: Pt presents with worsening SOB for last 3 days. Pt has dry cough. Pt denies fever or CP. Pt says SOB is worse with exertion and better with rest. Related Data Home Medications Medication Instructions Recorded Confirmed multivitamin 1 tablet PO DAILY 03/22/22 03/22/22 oxybutynin chloride 5 mg 5 mg PO DAILY 03/22/22 03/22/22 tablet,extended release 24 hr verapamil 240 mg tablet,extended 480 mg PO HS 03/22/22 03/22/22 release vitamin B complex 1 tablet PO DAILY 03/22/22 03/22/22 Allergies Allergy/AdvReac Type Severity Reaction Status Date / Time adhesive tape Allergy Intermediate itch and a Verified 03/22/22 11:54 rash Sulfa (Sulfonamide AdvReac Unknown Nausea Verified 03/22/22 12:12 Antibiotics) Review of Systems Review of Systems: All systems reviewed & are unremarkable except as noted in HPI and below PMFSH Past Medical History Medical History (Updated 03/22/22 @ 14:20 by Christiano Reddy III, DO) Asthma Chronic GERD Chronic kidney disease, stage 3 (moderate) Hypertensive chronic kidney disease with stage 1 through stage 4 chronic kidney disease, or unspecified chronic kidney disease Impaired fasting glucose Major depressive disorder JONELLE (obstructive sleep apnea) Surgical History Surgical History History of gastric surgery s/p gastric sleeve Family History Family History Mother Family history of diabetes mellitus in first degree relative Father Family history of coronary artery disease Social History Social History Smoking status: Never smoker Second hand tobacco smoke exposure: Yes Alcohol intake: never Substance use: never Substance use type: does not use Gender identity (if verbalized by the patient): Female Spiritual care concerns: No Agree to blood products: Yes Exam Const: General: healthy appearing Nutritional Appearance: well nourished Orientation/consciousness: patient oriented x3 Limitations: no limitations HENMT: Mouth: Yes Normal oral and palatal mucosa present Throat: posterior oropharynx normal Eyes: Conjunctivae: conjunctivae normal EOM: EOMs intact bilaterally Neck: Neck: normal visual inspection, no lymphadenopathy and no meningeal signs Chest: Chest palpation & inspection: normal inspection of the chest Resp: Effort & Inspection: normal respiratory effort Other: diminished b/l Cardio: Rate: regular rate Rhythm: regular rhythm GI: GI Palp: Yes Soft to palpation Auscultation: normal bowel sounds Skin: General skin exam: normal color Rashes: no rashes Wounds: no wounds Neuro: General: patient oriented x3 Cranial nerves: Yes Nystagmus not present Speech: normal speech Gait exam (Neuro): Normal gait present Extrem: General: normal to inspection Psych: Mental Status: mental status grossly normal Affect: normal affect Attitude: cooperative Course Course Emergency Course: d/w dr aviles, recommended lovenox 1 mg/kg, will consult Vital Signs Vital signs: Vital Signs Temperature 97.6 F 03/22/22 09:57 Pulse Rate 81 03/22/22 09:57 Respiratory Rate 18 03/22/22 09:57 Blood Pressure 151/88 H 03/22/22 09:57 Pulse Oximetry 94 03/22/22 09:57 Oxygen Delivery Room Air 03/22/22 09:57 Temperature 97.1 F L 03/22/22 16:23 Pulse Rate 81 03/22/22 16:23 Respiratory Rate 24 H 03/22/22 16:23 Blood Pressure 154/75 H 03/22/22 16:23 Pulse Oximetry 92 03/22/22 16:23 Oxygen Delivery Room Air 03/22/22 11:50 MDM - SOB/Dyspnea Lab Data Result diagrams: 03/22/22 10:06 03/22/22 10:06 Labs: Lab Results 03/22/22
[2022-03-22] MEDS: ASPIRIN 81 MG CHEWABLE TABLET 324 MG PO (13:18)
[2022-03-22] MEDS: NITROGLYCERIN OINTMENT 1 INCH DOSE TRANSDERM ×2 (13:19→18:09)
[2022-03-22 13:43] LABS: SARS-CoV-2 RNA PCR Negative
[2022-03-22] MEDS: ENOXAPARIN 100 MG/ML SYRINGE SUB-Q (14:23)
--- NOTE | 2022-03-22 16:35 | PC.NURSE ---
This patient, Rosita Flores, was admitted to IMU Room 206-02. Patient/family oriented to hospital policies and general routines including ID bracelet, bed and alarms, visiting hours, pain management, procedures, bathroom and other care routines, personal items, smoking policy, room service/diet, and visiting hours. Information on how to activate the Rapid Response Team has been discussed. Patient/Family are encouraged to report perceived risks to care and to ask questions if they do not understand what they are told or what they should do.
--- NOTE | 2022-03-22 17:47 | PM.IMHP ---
H&P: HPI History of Present Illness Date/Time: Patient requires inpatient monitoring with expected length of stay to exceed 2 midnights for management of care. 03/22/22 17:47 Chief Complaint: Shortness of breath Narrative: Ms. Flores is a 71-year-old female who presented to the emergency room with complaints of increasing shortness of breath since Tuesday. Patient states that on Tuesday evening she was out trimming the bushes in her yd and was trying to hurry to get them completed before night fall. Patient states that she noticed she was getting quite fatigued while trimming the bushes but she continued on with the task. Patient states that when she was finished she cleaned the [employer] yd and then was walking to the garage became extremely fatigued and started having shortness of breath. Patient states she started coughing that night and had midsternal chest discomfort that persisted with coughing. Patient states the pain did continue even without coughing but finally went away after a few hours. Patient denies taking any [id number] medication to help alleviate the pain. Patient states the pain stating her midsternal area and did not radiate anywhere. Patient denied any nausea, vomiting, diaphoresis, or palpitations associated with this chest discomfort. Patient states over the weekend she noticed that she could not lay flat when she would go to bed. Patient states at she would have to set up and then she could eventually go to a laying position without difficulty. Patient denies wearing any oxygen at home. Patient states that on Tuesday she did go to her grandson's graduation libertarian and she was extremely fatigued and had shortness of breath at that time. Patient denies any fever or chills. Patient denies any sputum production with her cough. Patient denies any lightheadedness, dizziness, syncopal, or near syncopal episodes. Patient states he only recent stress that she has had is an old boyfriend that she stayed in touch with had a month ago and this was very hard on her. Patient states she has a known history of asthma, hypertension, chronic kidney disease, and obstructive sleep apnea. Patient states she takes all medications at home without any difficulty. Patient did undergo cardiac catheterization in 2019 which showed no coronary artery disease. Review of Systems Review of Systems: A 12 point review of systems was completed patient all pertinent positive and negative per HPI the remainder are unremarkable. PMFSH Past Medical History Medical History (Updated 03/22/22 @ 14:20 by Christiano Reddy III, ) Asthma Chronic GERD Chronic kidney disease, stage 3 (moderate) Hypertensive chronic kidney disease with stage 1 through stage 4 chronic kidney disease, or unspecified chronic kidney disease Impaired fasting glucose Major depressive disorder JONELLE (obstructive sleep apnea) Surgical History Surgical History History of gastric surgery s/p gastric sleeve Family History Family History Mother Family history of diabetes mellitus in first degree relative Father Family history of coronary artery disease Social History Social History Smoking status: Never smoker Second hand tobacco smoke exposure: Yes Alcohol intake: never Substance use: never Substance use type: does not use Gender identity (if verbalized by the patient): Female Spiritual care concerns: No Agree to blood products: Yes Meds Home Medications and Allergies Home Medications Medication Instructions Recorded Confirmed Type venlafaxine 37.5 mg 37.5 mg PO DAILY #90 caps 10/22/21 03/22/22 Rx capsule,extended release 24 hr (Effexor XR) albuterol sulfate 90 mcg/actuation 1 inh inhalation Q4H PRN shortness 10/27/21 03/22/22 Rx aerosol inhaler of breath or w
[2022-03-22 20:23] LABS: Troponin I 0.888 ng/mL (0.000-0.034)
[2022-03-22] MEDS: FLUTICASONE PROPIONATE 0.05% NA SPR 16 GM BTL (*BKC) 1 SPRAY NASAL (20:31)
[2022-03-22] MEDS: VERAPAMIL HCL ER 240 MG TABLET.ER 480 MG PO (20:31)
[2022-03-22] MEDS: ACETAMINOPHEN 325 MG TABLET 650 MG PO (20:32)
[2022-03-23] VITALS (18 sets, daily range): BP systolic 98–149; BP diastolic 57–96; PULSE 63–92; RESP 18–22; TEMP 35.8–36.7; O2SAT 92–99
--- NOTE | 2022-03-23 | ECHO_ITS ---
Patient Info Name: Rosita Flores Age: 71 years : 1950 Gender: Female Ht: 67 in Wt: 233 lbs BSA: 2.28 m2 HR: 73 bpm BP: 135 / 67 mmHg Heart Rhythm: Sinus Rhythm Technical Quality: Good Exam Date: 03/23/2022 11:25 AM Exam Location: [facility] Pulmonary Patient Status: Inpatient Admit Date: 03/22/2022 Staff Ordering Physician: Daquan Novak MD Carpet Sewer: Beth Lyn RDCS Attending Provider: Amirah Lucio DO Exam Type: CA echo doppler color flow Study Info Indications - ELEVATED TROPONIN I50.9 - Heart failure, unspecified Complete two-dimensional, color flow and Doppler transthoracic echocardiogram is performed. Summary 1. Complete two-dimensional, color flow and Doppler transthoracic echocardiogram is performed. 2. Left ventricular systolic function is mild to moderately reduced, estimated at 40-45%. 3. Left ventricular chamber dimension is mildly enlarged. 4. There is mildly increased left ventricular wall thickness. 5. The left ventricular diastolic function is grade II diastolic dysfunction. 6. Global longitudinal strain is abnormal at -9 %. 7. The apical cap is akinetic. 8. The apical septum, apical lateral wall, apical inferior wall, apical anterior wall, mid anterior wall, mid inferoseptal, and mid anteroseptal are hypokinetic. 9. Left atrial chamber dimension is mildly enlarged. 10. There is mild aortic valve regurgitation. 11. There is mild mitral valve regurgitation. 12. There is mild tricuspid valve regurgitation. 13. Moderate pulmonary hypertension, estimated pulmonary arterial systolic pressure is 55 mmHg. 14. There is mild pulmonic regurgitation. Left Ventricle Left ventricular systolic function is mild to moderately reduced, estimated at 40-45%. Left ventricular chamber dimension is mildly enlarged. There is mildly increased left ventricular wall thickness. The left ventricular diastolic function is grade II diastolic dysfunction. Global longitudinal strain is abnormal at -9 %. The apical cap is akinetic. The apical septum, apical lateral wall, apical inferior wall, apical anterior wall, mid anterior wall, mid inferoseptal, and mid anteroseptal are hypokinetic. All other goodwin appear normal. Right Ventricle Right ventricular chamber dimension is normal. Right ventricular systolic function is normal. Left Atria Left atrial chamber dimension is mildly enlarged. Right Atria Right atrial chamber dimension is normal. Atrial Septum Intact interatrial septum visualized by color flow imaging. Aortic Valve The aortic valve is trileaflet. There is mild aortic valve sclerosis. There is no aortic valve stenosis. There is mild aortic valve regurgitation. Pulmonic Valve The pulmonic valve is normal. There is no pulmonic valve stenosis. There is mild pulmonic regurgitation. Mitral Valve The mitral valve has thickened leaflets. There is no mitral valve stenosis. There is mild mitral valve regurgitation. Tricuspid Valve The tricuspid valve leaflets are normal. There is no significant tricuspid valve stenosis. There is mild tricuspid valve regurgitation. Moderate pulmonary hypertension, estimated pulmonary arterial systolic pressure is 55 mmHg. Pericardium/Pleural The pericardium appears normal. There is trivial pericardial effusion. Inferior Vena Cava Normal inferior vena cava with >50% collapse upon inspiration consistent with elevated right atrial pressure, 10 mmHg. Aorta The aort
[2022-03-23] MEDS: ENOXAPARIN 100 MG/ML SYRINGE SUB-Q (02:48)
[2022-03-23 05:07] LABS: Basophils Absolute Auto 0.1 K/mm3 (0.0-0.1); Basophils Percent Auto 0.7 % (0.2-1.2); Eosinophils Absolute Auto 1.2 K/mm3 (0-0.3); Eosinophils Percent Auto 14.4 % (0-4.4); Hematocrit 37.6 % (37.0-47.0); Hemoglobin 11.9 g/dL (12.0-15.0); Immature Granulocyte Absolute 0.02 K/mm3 (0.00-0.031); Immature Granulocyte Percent A 0.2 % (0-0.5); Lymphocytes Absolute Auto 2.71 K/mm3 (0.9-3.2); Lymphocytes Percent Auto 31.5 % (18.3-44.2); Mean Corpuscular HGB Conc 31.6 g/dl (32-36); Mean Corpuscular Hemoglobin 31.5 pg (26-34); Mean Corpuscular Volume 99.5 fl (80-100); Mean Platelet Volume 10.5 fl (7.4-10.4); Monocytes Absolute Auto 0.8 K/mm3 (0.1-0.6); Monocytes Percent Auto 9.1 % (2.6-8.5); Neutrophils Absolute Auto 3.8 K/mm3 (1.3-6.7); Neutrophils Percent Auto 44.1 % (45.5-73.1); Platelet Count Result 184 k/mm3 (150-375); Red Blood Count 3.78 M/mm3 (4.2-5.4); Red Cell Distribution Width 14.1 % (11.5-14.5); White Blood Count 8.6 K/mm3 (4.5-10.0)
[2022-03-23 06:04] LABS: Hemoglobin A1C 5.7 % (<5.7)
[2022-03-23 07:48] LABS: Anion Gap 7 mmol/L (8-16); Blood Urea Nitrogen 33 mg/dL (7-17); Carbon Dioxide 25 mmol/L (22-30); Chloride 107 mmol/L (98-107); Cholesterol 124 mg/dL (0-200); Estimated CRCL calculation 47 ml/min; Estimated Glomerular Filt Rate 44; Glucose 114 mg/dL (65-110); HDL Direct 48 mg/dL; Potassium 4.6 mmol/L (3.4-5.0); Sodium 139 mmol/L (137-145); Triglycerides 110 mg/dL (<150)
[2022-03-23 07:55] LABS: LDL Cholesterol Direct 50 mg/dL
[2022-03-23] MEDS: FLUTICASONE PROPIONATE 0.05% NA SPR 16 GM BTL (*BKC) 1 SPRAY NASAL ×2 (09:47→21:14)
[2022-03-23] MEDS: METOPROLOL SUCCINATE EXT REL 25 MG TABCR PO (09:48)
[2022-03-23] MEDS: LOSARTAN POTASSIUM 50 MG TABLET PO (09:48)
[2022-03-23] MEDS: VENLAFAXINE HCL XR 37.5 MG CAP PO (09:49)
[2022-03-23] MEDS: LORATADINE 10 MG TABLET PO (09:49)
[2022-03-23] MEDS: MULTIVITAMINS THERAPEUTIC TAB (*BKC) 1 TABLET PO (09:49)
[2022-03-23] MEDS: ASPIRIN 81 MG ENTERIC TABLET PO (09:49)
[2022-03-23] MEDS: VITAMIN B COMPLEX CAPSULE 1 CAP PO (09:50)
--- NOTE | 2022-03-23 10:20 | PM.CNCAR ---
Assessment and Plan Assessment and plan (1) Congestive heart failure: Code(s): I50.9 - Heart failure, unspecified Status: Acute Assessment and Plan: 71-year-old female with CHF with preserved ejection fraction, hypertension, mild /AI, CKD, JONELLE, depression, history of COVID infection. Patient admitted to the hospital with worsening shortness of breath, which is multifactorial from CHF exacerbation (diastolic CHF based on previous echo) +/-asthma exacerbation. Patient has volume overload at present. EKG does not show any acute ST segment abnormality. 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 Patient had coronary angiogram done on 04/24/2020 which did not show any significant obstructive CAD. -start diuresis with IV furosemide with close monitoring of electrolytes, renal function and volume status. May switch to p.o. when volume status improves. -reduce dose of losartan to 25 mg daily for now. Optimal blood pressure control. If patient's LV systolic function is preserved on echocardiogram and acute coronary event is ruled out, then would consider weaning patient off of beta-palmira to provide any potential bronchospastic adverse effects of beta-palmira in a patient with longstanding history of asthma. -will check echocardiogram with Doppler to reassess LV/RV function, wall motion, PA pressures and progression of valvular heart disease. -will determine need for any additional testing including any invasive workup based on patient's clinical course and echo findings. 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 Coronary angiogram from 04/24/2020 did not show obstructive CAD. Other management plan as described above. (3) Asthma exacerbation: Code(s): J45.901 - Unspecified asthma with (acute) exacerbation Status: Acute Assessment and Plan: Supplemental oxygen as needed; bronchodilators, steroids. May consider pulmonology evaluation. (4) CKD (chronic kidney disease): Code(s): N18.9 - Chronic kidney disease, unspecified Status: Acute Assessment and Plan: Monitor renal function History of Present Illness History of Present Illness Consult date/time: 03/23/22 10:20 Requesting physician: Eda Garduno APRN Reason For Visit: mi Narrative: DATE OF CONSULT: 03/23/2022 REASON FOR CONSULT: Elevated troponin REQUESTING PHYSICIAN:Eda Garduno APRN CHIEF COMPLAINT: Worsening Shortness of breath HPI: 71-year-old female with CHF with preserved ejection fraction, hypertension, mild /AI, CKD, JONELLE, depression, history of COVID infection. Patient [facility] on 03/22[facility]22 with worsening shortness of breath. As per patient's daughter who is present in the patient's room at the time of evaluation, patient has been experiencing cough and shortness of breath about 2 months. Symptoms of dyspnea have gotten worse for last 4-5 days. Patient has chronic cough with associated chest pain while coughing. She has mild lower extremity swelling. She reports occasional dizziness without syncope. Denies any palpitations. Patient's previous cardiac workup including cardiac catheterization performed on 04/24/2020 in the setting of chest pain did not show any significant obstructive CAD. Patient has not been fully compliant with outpatient cardiology follow-up. Blood pressure at presentation was elevated at 151/88 mmHg EKG on my personal evaluation showed sinus rhythm, first-degree AV block, left atrial enlargement, poor R-wave progression. Troponins elevated with peak troponin level of 1.1 which is trending downwards. BNP is elevated at 5670. Chest x-ray showed Opacities in the lower lung zones which could represent mild pulmonary edema, atelectasis or pneumonia; Small bilateral pleur
[2022-03-23] MEDS: ALBUTEROL SULFATE (*SP) AEROSOL 1 PUFF INHALATION ×2 (10:30→18:17)
[2022-03-23] MEDS: INDAPAMIDE 1.25 MG TABLET PO (12:14)
--- NOTE | 2022-03-23 12:44 | PM.IMPN ---
Progress Note: A&P Assessment and Plan (1) Troponin level elevated: Code(s): R77.8 - Other specified abnormalities of plasma proteins Status: Acute Assessment and Plan: Patient's initial troponin is 1.140 and is currently trending down. Patient was started on aspirin, nitro paste and full dose of Lovenox. Cardiology been consulted. Echocardiogram is pending. Coronary angiogram from 04/24/2020 did not show obstructive CAD. Lipid panel noted. Appreciate Cardiology input who felt her hypoxia related to CHF and asthma exacerbation. Will check lower extremity venous Doppler. Consider CTA of the chest. Wean O2 as tolerated (2) Congestive heart failure: Code(s): I50.9 - Heart failure, unspecified Status: Acute Assessment and Plan: BNP 5670. CXR showing bilateral lower lobe airspace opacities and small bilateral pleural effusions. Echocardiogram has been ordered. IV Lasix has been started. Will hold Lozol. Wean oxygen as tolerated (3) Asthma exacerbation: Code(s): J45.901 - Unspecified asthma with (acute) exacerbation Status: Acute Assessment and Plan: Patient may have had a mild asthma exacerbation. No wheezing on exam today. She does have an eosinophilia which is new. She is not on inhalers. Will hold off on steroids at this time since she is not wheezing and appears comfortable. She has albuterol inhaler available. Consider changing to nebulizer treatments if she develops wheezing but right now will continue current regiment. (4) Chronic kidney disease, stage 3 (moderate): Code(s): N18.3 - Chronic kidney disease, stage 3 (moderate) Status: Acute Assessment and Plan: Patient's kidney function is at baseline at this time. Continue to monitor closely while on diuretic therapy. (5) Hyperglycemia: Code(s): R73.9 - Hyperglycemia, unspecified Status: Acute Assessment and Plan: A1c 5.7. Patient was noted to have hyperglycemia. Probably stress response. Plan DVT prophylaxis: Lovenox Code status: Full Subjective Date/time seen: 03/23/22 12:44 Interval history: 71yo female with CKD and HTN here for SOB, coughing and chest pain. She has been wheezing. Shedoes have asthma. She does not smoke. Her shortness of breath worsens when she lies flat. The cough is nonproductive. No fever or chills. She has had calf pain for the past 3 months mostly in the right. No pedal edema. She believes her abdomen is mildly distended over the past 2 years. Exam Narrative: AF 96.7 149/82 75 22 96% ra Gen - NARD lying almost flat in the Chest - CTA bilaterally, nml RR CV - RRR S1/S2. Telemetry showing no significant dysrhythmias Abd - Soft, NT/ND, Positive BS Ext - No pedal edema. Positive Homans sign on the right. Psych - Nml mood and affect Skin - Warm and dry Objective Data Vital Signs Vital Signs: Vital Signs - 24 hr 03/22/22 12:46 03/22/22 13:19 03/22/22 14:01 Temperature Pulse Rate 81 87 Respiratory Rate 19 16 Blood Pressure 176/111 H 210/109 H Pulse Oximetry 92 97 96 Oxygen Delivery 03/22/22 16:23 03/22/22 16:30 03/22/22 18:00 Temperature 97.1 F L Pulse Rate 81 79 93 Respiratory Rate 24 H Blood Pressure 154/75 H Pulse Oximetry 92 Oxygen Delivery 03/22/22 19:51 03/22/22 19:54 03/22/22 20:00 Temperature 98.0 F Pulse Rate 79 75 Respiratory Rate 18 Blood Pressure 148/84 H Pulse Oximetry 96 Oxygen Delivery Room Air 03/22/22 20:00 03/22/22 22:00 03/22/22 23:48 Temperature 98.0 F Pulse Rate 75 80 85 Respiratory Rate 18 18 Blood Pressure 115/63 Pulse Oximetry 96 99 Oxygen Delivery Room Air 03/23/22 00:00 03/23/22 00:00 03/23/22 02:00 Temperature Pulse Rate 77 77 63 Respiratory Rate 18 Blood Pressure Pulse Oximetry 99 Oxygen Delivery Room Air 03/23/22 04:00 03/23/22 04:00 03/23/22 04:00 Temperature 98.0 F Pul
[2022-03-23] MEDS: FUROSEMIDE INJ 40 MG/4 ML VIAL IV PUSH (16:45)
[2022-03-23] MEDS: VERAPAMIL HCL ER 240 MG TABLET.ER 480 MG PO (21:15)
[2022-03-23] MEDS: ALPRAZolam (*CRX) 0.25 MG TABLET PO (21:15)
[2022-03-24] VITALS (17 sets, daily range): BP systolic 104–147; BP diastolic 61–78; PULSE 59–85; RESP 18–22; TEMP 36.2–36.6; O2SAT 91–98
[2022-03-24 05:06] LABS: Basophils Absolute Auto 0.1 K/mm3 (0.0-0.1); Basophils Percent Auto 0.7 % (0.2-1.2); Eosinophils Absolute Auto 1.3 K/mm3 (0-0.3); Eosinophils Percent Auto 17.3 % (0-4.4); Hematocrit 37.6 % (37.0-47.0); Hemoglobin 12.1 g/dL (12.0-15.0); Immature Granulocyte Absolute 0.02 K/mm3 (0.00-0.031); Immature Granulocyte Percent A 0.3 % (0-0.5); Lymphocytes Absolute Auto 2.14 K/mm3 (0.9-3.2); Lymphocytes Percent Auto 29.4 % (18.3-44.2); Mean Corpuscular HGB Conc 32.2 g/dl (32-36); Mean Corpuscular Hemoglobin 31.3 pg (26-34); Mean Corpuscular Volume 97.4 fl (80-100); Mean Platelet Volume 10.2 fl (7.4-10.4); Monocytes Absolute Auto 0.7 K/mm3 (0.1-0.6); Monocytes Percent Auto 9.8 % (2.6-8.5); Neutrophils Absolute Auto 3.1 K/mm3 (1.3-6.7); Neutrophils Percent Auto 42.5 % (45.5-73.1); Platelet Count Result 188 k/mm3 (150-375); Red Blood Count 3.86 M/mm3 (4.2-5.4); Red Cell Distribution Width 13.9 % (11.5-14.5); White Blood Count 7.3 K/mm3 (4.5-10.0)
[2022-03-24 06:05] LABS: Atypical Lymphocytes Present; Platelet Estimate Adequate (Adequate)
[2022-03-24 06:44] LABS: Albumin Level 3.7 g/dL (3.5-5.1); Anion Gap 6 mmol/L (8-16); Blood Urea Nitrogen 28 mg/dL (7-17); Calcium 8.7 mg/dL (8.4-10.2); Carbon Dioxide 27 mmol/L (22-30); Chloride 104 mmol/L (98-107); Estimated CRCL calculation 47 ml/min; Estimated Glomerular Filt Rate 44; Glucose 117 mg/dL (65-110); Potassium 3.3 mmol/L (3.4-5.0); Sodium 137 mmol/L (137-145)
--- NOTE | 2022-03-24 08:46 | PM.IMPN ---
Progress Note: A&P Assessment and Plan (1) Troponin level elevated: Code(s): R77.8 - Other specified abnormalities of plasma proteins Status: Acute Assessment and Plan: Patient's initial troponin is 1.140 and is trending down. Patient was started on aspirin, nitro paste and full dose of Lovenox. Cardiology been consulted. Echocardiogram reviewed with mild LV dysfunction ejection fraction 40-45%. Coronary angiogram from 04/24/2020 did not show obstructive CAD. Lipid panel noted. Appreciate Cardiology input who felt her hypoxia related to CHF and asthma exacerbation. Lower venous Doppler negative for DVT. Consider CTA of the chest. 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 CXR showing bilateral lower lobe airspace opacities and small bilateral pleural effusions. Echocardiogram with ejection fraction 40-45%. Grade 2 diastolic dysfunction. Hypokinetic apical septum, apical lateral wall, apical inferior wall, apical anterior wall, mid anterior wall, mid inferior septal and mid anteroseptal. Moderate pulmonary hypertension with PASP 55 mm Hg. IV Lasix has been started. Systolic versus diastolic heart failure. Prior coronary angiogram done on 04/2022 with no obstructive coronary artery disease Continue diuresis as tolerated On metoprolol 25 mg daily along with losartan 25 mg daily (3) Asthma exacerbation: Code(s): J45.901 - Unspecified asthma with (acute) exacerbation Status: Acute Assessment and Plan: Patient may have had a mild asthma exacerbation. She have an eosinophilia which is new. She is not on inhalers. Will hold off on steroids at this time since she is not wheezing and appears comfortable. She has albuterol inhaler available. Consider changing to nebulizer treatments if she develops wheezing but right now will continue current regimen. Cough with expectoration. Add doxycycline. Recheck chest x-ray today to rule out underlying pneumonia (4) Chronic kidney disease, stage 3 (moderate): Code(s): N18.3 - Chronic kidney disease, stage 3 (moderate) Status: Acute Assessment and Plan: Patient's kidney function is at baseline at this time. Baseline creatinine 1.2 to 1.5. monitor closely while on diuretic therapy. (5) Hyperglycemia: Code(s): R73.9 - Hyperglycemia, unspecified Status: Acute Assessment and Plan: A1c 5.7. Patient was noted to have hyperglycemia. Probably stress response. A1c at 5.7 Plan DVT prophylaxis: Lovenox 40 mg daily Code status: Full Subjective Date/time seen: 03/24/22 08:46 Interval history: 71yo female with CKD and HTN here for SOB, coughing and chest pain. 03/24/2022 continues to have cough. Coughs up yellowish sputum. Shortness of breath on exertion present had some chest pain prior to admission in the retro sternum while she was mowing the yd. Denies any fever chills. Reports being treated for pneumonia of the past few weeks. Review of Systems Review of Systems: All systems reviewed & are unremarkable except as noted in HPI and below (HPI) Exam Narrative: Gen - NARD lying almost flat in the Chest -coarse breath sounds bilaterally, nml RR CV - RRR S1/S2. Telemetry showing no significant dysrhythmias mild systolic murmur noted in aortic area Abd - Soft, NT/ND, Positive BS Ext - No pedal edema. Positive Homans sign on the right. Psych - Nml mood and affect Skin - Warm and dry Objective Data Vital Signs Vital Signs: Vital Signs - 24 hr 03/23/22 09:48 03/23/22 10:35 03/23/22 10:00 Temperature Pulse Rate 69 84 79 Respiratory Rate 18 Blood Pressure Pulse Oximetry Oxygen Delivery 03/23/22 12:00 03/23/22 12:31 03/23/22 12:00 Temperature 96.7 F L Pulse Rate 75 75 Respiratory Rate 22 H Blood Pressure
[2022-03-24] MEDS: ENOXAPARIN 40 MG/0.4 ML SYRINGE SUB-Q (09:11)
[2022-03-24] MEDS: ASPIRIN 81 MG ENTERIC TABLET PO (09:11)
[2022-03-24] MEDS: VENLAFAXINE HCL XR 37.5 MG CAP PO (09:12)
[2022-03-24] MEDS: VITAMIN B COMPLEX CAPSULE 1 CAP PO (09:12)
[2022-03-24] MEDS: FUROSEMIDE INJ 40 MG/4 ML VIAL IV PUSH ×2 (09:12→17:10)
[2022-03-24] MEDS: FLUTICASONE PROPIONATE 0.05% NA SPR 16 GM BTL (*BKC) 1 SPRAY NASAL ×2 (09:12→21:24)
[2022-03-24] MEDS: METOPROLOL SUCCINATE EXT REL 25 MG TABCR PO (09:12)
[2022-03-24] MEDS: MULTIVITAMINS THERAPEUTIC TAB (*BKC) 1 TABLET PO (09:13)
[2022-03-24] MEDS: LOSARTAN POTASSIUM 25 MG TABLET PO (09:13)
[2022-03-24] MEDS: LORATADINE 10 MG TABLET PO (09:13)
--- NOTE | 2022-03-24 10:16 | PM.PNCARD ---
Progress Note: A&P Assessment and Plan (1) Takotsubo cardiomyopathy: Code(s): I51.81 - Takotsubo syndrome Status: Acute Plan Presumptive/operating diagnosis is takotsubo stress cardiomyopathy given her symptoms echocardiographic findings and known history of normal coronary angiography as recently as 2019. I would recommend continuing furosemide as she still has some congestion on exam. I am going to shift her from verapamil because of its significant negative inotropic properties to amlodipine for her calcium channel palmira. Looks like she takes this q.h.s. for some reason. Hopefully discharge in the next 24-48 hours is appropriate based on her clinical course. Because of the records of a normal coronary angiogram in 2019 I do not believe it is necessary to repeat that in the absence of any chest pain or ECG changes Carlos Mcclelland MD [facility] Subjective Date/time seen: Date of service: 03/24/22 10:16 Interval history: Follow-up visit in this 71-year-old lady with: Shortness of breath, history of asthma also some evidence of congestive heart failure on admission. Previous cardiac workup including catheterization 2 years ago was negative. Echocardiogram yesterday demonstrates wall motion abnormalities typical of takotsubo cardiomyopathy. Patient states that her breathing is better still has mild shortness of breath with activity around the room. Discussed echocardiographic findings with the patient in detail. Exam Const: General: comfortable and no acute distress Other: Overweight lady appears to be comfortable essentially cooperative no distress HENMT: Mouth: Yes moist mucous membranes Eyes: Sclera: sclerae normal Pupils: Equal, round and reactive pupils present Neck: Neck: supple and no JVD Resp: Effort & Inspection: normal respiratory effort Auscultation: clear to auscultation bilaterally Cardio: Rate: regular rate Rhythm: regular rhythm Other: No murmur no gallop, PMI is not palpable GI: GI Palp: Yes Soft to palpation Auscultation: normal bowel sounds Skin: General skin exam: normal color Neuro: Other: Normal cognition Extrem: General: normal to inspection Objective Data Vital Signs Vital Signs: Vital Signs - 24 hr 03/23/22 10:35 03/23/22 12:00 03/23/22 12:31 Temperature 35.9 C L Pulse Rate 84 75 Respiratory Rate 18 22 H Blood Pressure 149/82 H Pulse Oximetry 96 Oxygen Delivery Room Air 03/23/22 12:00 03/23/22 14:00 03/23/22 16:00 Temperature Pulse Rate 75 78 Respiratory Rate Blood Pressure Pulse Oximetry Oxygen Delivery Room Air 03/23/22 16:46 03/23/22 16:00 03/23/22 18:29 Temperature 35.8 C L Pulse Rate 75 79 84 Respiratory Rate 20 18 Blood Pressure 147/96 H Pulse Oximetry 95 Oxygen Delivery 03/23/22 20:00 03/23/22 20:00 03/23/22 20:00 Temperature 36.4 C Pulse Rate 85 92 Respiratory Rate 18 Blood Pressure 139/90 Pulse Oximetry 97 Oxygen Delivery Room Air 03/23/22 22:00 03/23/22 22:59 03/24/22 00:00 Temperature 36.6 C Pulse Rate 89 80 79 Respiratory Rate 18 Blood Pressure 118/57 L Pulse Oximetry 99 Oxygen Delivery 03/24/22 00:00 03/24/22 02:00 03/24/22 04:00 Temperature Pulse Rate 64 Respiratory Rate Blood Pressure Pulse Oximetry Oxygen Delivery Room Air Room Air 03/24/22 04:00 03/24/22 04:00 03/24/22 06:00 Temperature 36.6 C Pulse Rate 85 59 L 62 Respiratory Rate 18 Blood Pressure 130/70 Pulse Oximetry 97 Oxygen Delivery 03/24/22 07:56 03/24/22 09:12 Temperature 36.3 C L Pulse Rate 71 78 Respiratory Rate 18 Blood Pressure 135/67 Pulse Oximetry 98 Oxygen Delivery Intake/Output Intake/Output: Intake & Output 03/21/22 03/22/22 03/23/22 03/24/22 23:59 23:59 23:59 23:59 Intake Total 1010 690 Balance 1010 690 Meds/Results Medications: Active Medications Generic Name Dose Route Start Last Admin T
[2022-03-24] MEDS: DOXYCYCLINE 100 MG/NS 100 ML 100 MG/100 ML BAG IVPB ×2 (12:23→21:26)
[2022-03-24] MEDS: POTASSIUM CHLORIDE 20 MEQ TABLET 40 MEQ PO (12:23)
[2022-03-24] MEDS: MELATONIN 5 MG TABLET 10 MG PO (21:23)
[2022-03-24] MEDS: amLODIPine BESYLATE 5 MG TABLET 10 MG PO (21:23)
[2022-03-25] VITALS (13 sets, daily range): BP systolic 111–145; BP diastolic 63–93; PULSE 70–102; RESP 16–22; TEMP 35.6–36.6; O2SAT 93–98
[2022-03-25 05:12] LABS: Basophils Percent Auto 0.6 % (0.2-1.2); Eosinophils Absolute Auto 0.2 K/mm3 (0-0.3); Eosinophils Percent Auto 2.6 % (0-4.4); Hematocrit 38.8 % (37.0-47.0); Hemoglobin 12.6 g/dL (12.0-15.0); Immature Granulocyte Absolute 0.02 K/mm3 (0.00-0.031); Immature Granulocyte Percent A 0.3 % (0-0.5); Lymphocytes Absolute Auto 1.89 K/mm3 (0.9-3.2); Lymphocytes Percent Auto 29.4 % (18.3-44.2); Mean Corpuscular HGB Conc 32.5 g/dl (32-36); Mean Corpuscular Hemoglobin 31.3 pg (26-34); Mean Corpuscular Volume 96.5 fl (80-100); Mean Platelet Volume 9.9 fl (7.4-10.4); Monocytes Absolute Auto 0.7 K/mm3 (0.1-0.6); Monocytes Percent Auto 10.3 % (2.6-8.5); Neutrophils Absolute Auto 3.7 K/mm3 (1.3-6.7); Neutrophils Percent Auto 56.8 % (45.5-73.1); Platelet Count Result 202 k/mm3 (150-375); Red Blood Count 4.02 M/mm3 (4.2-5.4); Red Cell Distribution Width 13.7 % (11.5-14.5); White Blood Count 6.4 K/mm3 (4.5-10.0)
[2022-03-25 05:28] LABS: Alanine Aminotransferase 28 U/L (6-35); Albumin Level 3.8 g/dL (3.5-5.1); Alkaline Phosphatase 89 U/L (38-126); Anion Gap 6 mmol/L (8-16); Aspartate Amino Transferase 39 U/L (14-36); Bilirubin,Total 0.5 mg/dL (0.2-1.3); Blood Urea Nitrogen 35 mg/dL (7-17); Carbon Dioxide 27 mmol/L (22-30); Chloride 106 mmol/L (98-107); Estimated CRCL calculation 44 ml/min; Estimated Glomerular Filt Rate 40; Glucose 109 mg/dL (65-110); Magnesium 1.9 mg/dL (1.6-2.3); Potassium 3.6 mmol/L (3.4-5.0); Sodium 139 mmol/L (137-145)
[2022-03-25] MEDS: METOPROLOL SUCCINATE EXT REL 25 MG TABCR PO (08:39)
[2022-03-25] MEDS: VENLAFAXINE HCL XR 37.5 MG CAP PO (08:39)
[2022-03-25] MEDS: LOSARTAN POTASSIUM 25 MG TABLET PO (08:40)
[2022-03-25] MEDS: FLUTICASONE PROPIONATE 0.05% NA SPR 16 GM BTL (*BKC) 1 SPRAY NASAL ×2 (08:40→21:20)
[2022-03-25] MEDS: MULTIVITAMINS THERAPEUTIC TAB (*BKC) 1 TABLET PO (08:40)
[2022-03-25] MEDS: ASPIRIN 81 MG ENTERIC TABLET PO (08:40)
[2022-03-25] MEDS: VITAMIN B COMPLEX CAPSULE 1 CAP PO (08:40)
[2022-03-25] MEDS: LORATADINE 10 MG TABLET PO (08:40)
[2022-03-25] MEDS: FUROSEMIDE INJ 40 MG/4 ML VIAL IV PUSH (08:41)
[2022-03-25] MEDS: ENOXAPARIN 40 MG/0.4 ML SYRINGE SUB-Q (08:41)
[2022-03-25] MEDS: DOXYCYCLINE 100 MG/NS 100 ML 100 MG/100 ML BAG IVPB ×2 (09:39→22:53)
--- NOTE | 2022-03-25 10:33 | PM.PNCARD ---
Progress Note: A&P Assessment and Plan (1) Takotsubo cardiomyopathy: Code(s): I51.81 - Takotsubo syndrome Status: Acute Plan -acute on chronic asthma exacerbation -elevated troponin -recent of diagnosis of Takotsubo's cardiomyopathy. This 71-year-old female with past history of asthma who presents here with worsening shortness of breath. She did have cardiac catheterization in 2019 that showed normal coronary arteries. 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 She was found to have elevated troponins. No ischemic changes on EKG, patient denies chest pain. At this time the% of diagnosis takotsubo cardiomyopathy. Continue Toprol-XL 25 mg daily. Change Lasix from 40 mg IV b.i.d. to 40 mg p.o. b.i.d. for now. -continue losartan 25 mg daily. -we will need to repeat echocardiogram in 1 month from now to ensure that her LV dysfunction is recovered. -continue treatment for asthma exacerbation Subjective Date/time seen: 03/25/22 10:33 Interval history: Follow-up visit in this 71-year-old lady with: Shortness of breath, history of asthma also some evidence of congestive heart failure on admission. Previous cardiac workup including catheterization 2 years ago was negative. Echocardiogram yesterday demonstrates wall motion abnormalities typical of takotsubo cardiomyopathy. Patient states that her breathing is better still has mild shortness of breath with activity around the room. Discussed echocardiographic findings with the patient in detail. 03/25/2022-resting comfortably in bed. Denies chest pain. Shortness of breath improving. Still coughing. Exam Narrative: PHYSICAL EXAMINATION: GENERAL: Alert, oriented, no acute distress MENTAL STATUS: Anxious EYES: Extraocular movements intact, no pallor EARS: External ears appear normal, hearing grossly normal NOSE: Normal and patent, no discharge MOUTH: Mucous membranes moist, tongue normal NECK: Supple, no JVD CHEST: Decreased air entry bilaterally HEART: Normal rate, regular rhythm, normal S1 and S2, systolic murmur at base ABDOMEN: Soft, nontender NEUROLOGICAL: Alert, oriented, normal speech, no gross motor deficits MUSCULOSKELETAL: No major deformity, no amputation EXTREMITIES: Trace pedal edema, no clubbing, no cyanosis SKIN: no rash on the exposed area, no cyanosis PSYCHIATRIC: Normal mood and affect Const: General: comfortable and no acute distress Other: Overweight lady appears to be comfortable essentially cooperative no distress HENMT: Mouth: Yes moist mucous membranes Eyes: Sclera: sclerae normal Pupils: Equal, round and reactive pupils present Neck: Neck: supple and no JVD Resp: Effort & Inspection: normal respiratory effort Auscultation: diminished lung sounds Cardio: Rate: regular rate Rhythm: regular rhythm Other: No murmur no gallop, PMI is not palpable GI: Auscultation: normal bowel sounds Skin: General skin exam: normal color Neuro: Cranial nerves: Yes Equal, round and reactive pupils present Other: Normal cognition Extrem: General: normal to inspection Psych: Mental Status: mental status grossly normal Objective Data Vital Signs Vital Signs: Vital Signs - 24 hr 03/24/22 11:44 03/24/22 12:00 03/24/22 12:00 Temperature 36.2 C L Pulse Rate 66 72 66 Respiratory Rate 18 18 Blood Pressure 130/61 Pulse Oximetry 97 97 Oxygen Delivery Room Air 03/24/22 14:00 03/24/22 16:00 03/24/22 16:00 Temperature 36.5 C Pulse Rate 76 76 76 Respiratory Rate 22 H Blood Pressure 147/78 H Pulse Oximetry 98 Oxygen Delivery 03/24/22 16:00 03/24/22 18:00 03/24/22 20:00 Temperature 36.6 C Pulse Rate 76 83 73 Respiratory Rate 22 H 18 Blood Pressure 126/68 Pulse Oximetry 98 98 Oxygen Delivery Room Air 03/24/22 20:00 03/24/22 20:49 03/24/22 22:00 Temperature Pulse Rate 85 Respiratory Rate Blood Pressure Pulse Oximetry 91 Oxygen De
[2022-03-25] MEDS: BENZONATATE 100 MG CAPSULE PO ×2 (12:26→16:21)
--- NOTE | 2022-03-25 14:04 | PM.IMPN ---
Progress Note: A&P Assessment and Plan (1) Troponin level elevated: Code(s): R77.8 - Other specified abnormalities of plasma proteins Status: Acute Assessment and Plan: Patient's initial troponin is 1.140 and is trending down. Patient was started on aspirin, nitro paste and full dose of Lovenox. Cardiology been consulted. Echocardiogram reviewed with mild LV dysfunction ejection fraction 40-45%. Coronary angiogram from 04/24/2020 did not show obstructive CAD. Lipid panel noted. Appreciate Cardiology input who felt her hypoxia related to CHF and asthma exacerbation. Lower venous Doppler negative for DVT. Consider CTA of the chest. Wean O2 as tolerated Echocardiogram suggestive of the code so will cardiomyopathy HUGO-inhibitor/beta-palmira Echo repeat in 1 month planned (2) Congestive heart failure: Code(s): I50.9 - Heart failure, unspecified Status: Acute Assessment and Plan: BNP 5670. CXR showing bilateral lower lobe airspace opacities and small bilateral pleural effusions. Echocardiogram with ejection fraction 40-45%. Grade 2 diastolic dysfunction. Hypokinetic apical septum, apical lateral wall, apical inferior wall, apical anterior wall, mid anterior wall, mid inferior septal and mid anteroseptal. Moderate pulmonary hypertension with PASP 55 mm Hg. IV Lasix has been started. Systolic versus diastolic heart failure. Prior coronary angiogram done on 04/2022 with no obstructive coronary artery disease Continue diuresis as tolerated On metoprolol 25 mg daily along with losartan 25 mg daily (3) Asthma exacerbation: Code(s): J45.901 - Unspecified asthma with (acute) exacerbation Status: Acute Assessment and Plan: Patient may have had a mild asthma exacerbation. She have an eosinophilia which is new. She is not on inhalers. Will hold off on steroids at this time since she is not wheezing and appears comfortable. She has albuterol inhaler available. Consider changing to nebulizer treatments if she develops wheezing but right now will continue current regimen. Cough with expectoration. Added doxycycline. Chest x-ray with improving congestive changes (4) Chronic kidney disease, stage 3 (moderate): Code(s): N18.3 - Chronic kidney disease, stage 3 (moderate) Status: Acute Assessment and Plan: Patient's kidney function is at baseline at this time. Baseline creatinine 1.2 to 1.5. monitor closely while on diuretic therapy. (5) Hyperglycemia: Code(s): R73.9 - Hyperglycemia, unspecified Status: Acute Assessment and Plan: A1c 5.7. Patient was noted to have hyperglycemia. Probably stress response. A1c at 5.7 Plan DVT prophylaxis: Lovenox 40 mg daily Code status: Full Subjective Date/time seen: 03/25/22 14:04 Interval history: 71yo female with CKD and HTN here for SOB, coughing and chest pain. 03/24/2022 continues to have cough. Coughs up yellowish sputum. Shortness of breath on exertion present had some chest pain prior to admission in the retro sternum while she was mowing the yd. Denies any fever chills. Reports being treated for pneumonia of the past few weeks. 03/25/2022 continues to have dry cough. No fever chills. Shortness of breath has improved. No leg swelling. Chest x-ray from yesterday reviewed. Review of Systems Review of Systems: All systems reviewed & are unremarkable except as noted in HPI and below (HPI) Exam Narrative: Gen -pleasant female lying in bed in no acute distress Chest -coarse breath sounds bilaterally, nml RR CV - RRR S1/S2. Telemetry showing no significant dysrhythmias mild systolic murmur noted in aortic area Abd - Soft, NT/ND, Positive BS Ext - No pedal edema. Positive Homans sign on the right. Psych - Nml mood and affect Skin - Warm and dry Objective Data Vital Signs Vital Signs: Vital Signs - 24 hr 03/24/22 16:00 03/24/22 16:00 03/24/22 16:00
[2022-03-25] MEDS: FUROSEMIDE 40 MG TABLET PO (16:20)
[2022-03-25] MEDS: amLODIPine BESYLATE 5 MG TABLET 10 MG PO (21:19)
[2022-03-25] MEDS: MELATONIN 5 MG TABLET 10 MG PO (21:20)
[2022-03-26] VITALS (10 sets, daily range): BP systolic 133–147; BP diastolic 70–86; PULSE 77–114; RESP 18–20; TEMP 36.2–36.4; O2SAT 96–98
[2022-03-26 05:38] LABS: Basophils Percent Auto 0.5 % (0.2-1.2); Eosinophils Absolute Auto 0.6 K/mm3 (0-0.3); Eosinophils Percent Auto 8.8 % (0-4.4); Hematocrit 41.3 % (37.0-47.0); Hemoglobin 13.9 g/dL (12.0-15.0); Immature Granulocyte Absolute 0.03 K/mm3 (0.00-0.031); Immature Granulocyte Percent A 0.4 % (0-0.5); Lymphocytes Absolute Auto 2.17 K/mm3 (0.9-3.2); Lymphocytes Percent Auto 29.7 % (18.3-44.2); Mean Corpuscular HGB Conc 33.7 g/dl (32-36); Mean Corpuscular Hemoglobin 31.3 pg (26-34); Mean Platelet Volume 9.9 fl (7.4-10.4); Monocytes Absolute Auto 0.6 K/mm3 (0.1-0.6); Monocytes Percent Auto 7.7 % (2.6-8.5); Neutrophils Absolute Auto 3.9 K/mm3 (1.3-6.7); Neutrophils Percent Auto 52.9 % (45.5-73.1); Platelet Count Result 219 k/mm3 (150-375); Red Blood Count 4.44 M/mm3 (4.2-5.4); Red Cell Distribution Width 13.4 % (11.5-14.5); White Blood Count 7.3 K/mm3 (4.5-10.0)
[2022-03-26 05:52] LABS: Alanine Aminotransferase 50 U/L (6-35); Albumin Level 4.2 g/dL (3.5-5.1); Alkaline Phosphatase 106 U/L (38-126); Anion Gap 10 mmol/L (8-16); Aspartate Amino Transferase 65 U/L (14-36); Bilirubin,Total 0.4 mg/dL (0.2-1.3); Blood Urea Nitrogen 36 mg/dL (7-17); Calcium 9.4 mg/dL (8.4-10.2); Carbon Dioxide 26 mmol/L (22-30); Chloride 104 mmol/L (98-107); Estimated CRCL calculation 47 ml/min; Estimated Glomerular Filt Rate 44; Glucose 122 mg/dL (65-110); Potassium 3.6 mmol/L (3.4-5.0); Sodium 140 mmol/L (137-145)
[2022-03-26] MEDS: DOXYCYCLINE 100 MG/NS 100 ML 100 MG/100 ML BAG IVPB ×2 (09:08→21:35)
[2022-03-26] MEDS: ASPIRIN 81 MG ENTERIC TABLET PO (09:09)
[2022-03-26] MEDS: ENOXAPARIN 40 MG/0.4 ML SYRINGE SUB-Q (09:09)
[2022-03-26] MEDS: FLUTICASONE PROPIONATE 0.05% NA SPR 16 GM BTL (*BKC) 1 SPRAY NASAL ×2 (09:09→21:37)
[2022-03-26] MEDS: FUROSEMIDE 40 MG TABLET PO ×2 (09:10→21:34)
[2022-03-26] MEDS: LORATADINE 10 MG TABLET PO (09:10)
[2022-03-26] MEDS: LOSARTAN POTASSIUM 25 MG TABLET PO (09:10)
[2022-03-26] MEDS: METOPROLOL SUCCINATE EXT REL 25 MG TABCR PO (09:10)
[2022-03-26] MEDS: MULTIVITAMINS THERAPEUTIC TAB (*BKC) 1 TABLET PO (09:11)
[2022-03-26] MEDS: VITAMIN B COMPLEX CAPSULE 1 CAP PO (09:11)
[2022-03-26] MEDS: VENLAFAXINE HCL XR 37.5 MG CAP PO (09:11)
--- NOTE | 2022-03-26 13:17 | PM.PNCARD ---
Progress Note: A&P Assessment and Plan (1) Takotsubo cardiomyopathy: Code(s): I51.81 - Takotsubo syndrome Status: Acute Plan this is a 71-year-old woman who has a history of a normal coronary angiogram a couple of years ago came into the hospital with a asthmatic exacerbation and found to have evidence of takotsubo cardiomyopathy with echocardiographic wall motion abnormalities typical of this. She is stable clinically on appropriate medication. Patient states she is anticipating discharge over the weekend. I am going to and see that she has follow-up in our office for an echocardiogram in the next 1-3 months and then office visit with Dr. Young to ensure that this resolves. Carlos Mcclelland MD [facility] Subjective Date/time seen: 03/26/22 13:17 Interval history: Follow-up visit in this 71-year-old woman with: Episode of what appears to be takotsubo stress cardiomyopathy triggered by acute asthmatic exacerbation. Today the patient states she is feeling a bit better day by day still coughing but no other symptomatology. Exam Const: General: comfortable and no acute distress Other: Pleasant lady appears her stated age resting comfortably in bed when I came into see her coughing when I have a conversation HENMT: Mouth: Yes moist mucous membranes Eyes: Sclera: sclerae normal Pupils: Equal, round and reactive pupils present Neck: Neck: supple and no JVD Resp: Effort & Inspection: normal respiratory effort Other: scattered expiratory rhonchi Cardio: Rate: regular rate Rhythm: regular rhythm Other: no murmur no gallop GI: GI Palp: Yes Soft to palpation Auscultation: normal bowel sounds Skin: General skin exam: normal color Neuro: Other: normal normal cognition Extrem: Other: adequate perfusion no edema Objective Data Vital Signs Vital Signs: Vital Signs - 24 hr 03/25/22 16:00 03/25/22 16:37 03/25/22 20:43 Temperature 36.6 C 36.6 C Pulse Rate 84 102 H 84 Respiratory Rate 22 H 16 Blood Pressure 134/75 132/67 Pulse Oximetry 93 95 Oxygen Delivery 03/25/22 20:00 03/26/22 04:43 03/25/22 20:00 Temperature 36.3 C L Pulse Rate 88 81 Respiratory Rate 18 Blood Pressure 133/75 Pulse Oximetry 98 Oxygen Delivery Room Air 03/26/22 00:00 03/26/22 04:00 03/26/22 09:10 Temperature Pulse Rate 77 91 88 Respiratory Rate Blood Pressure Pulse Oximetry Oxygen Delivery 03/26/22 08:00 Temperature Pulse Rate Respiratory Rate Blood Pressure Pulse Oximetry Oxygen Delivery Room Air Intake/Output Intake/Output: Intake & Output 03/23/22 03/24/22 03/25/22 03/26/22 23:59 23:59 23:59 23:59 Intake Total 1010 1770 1670 900 Output Total 200 2050 Balance 1010 1570 -380 900 Meds/Results Medications: Active Medications Generic Name Dose Route Start Last Admin Trade Name Freq PRN Reason Stop Dose Admin Acetaminophen 650 mg 03/22/22 20:02 03/22/22 20:32 Acetaminophen 325 Mg Tablet PO 650 mg Q6H PRN Administration Mild Pain (1-3) or Fever Albuterol 1 puff 03/22/22 17:46 03/23/22 18:17 Albuterol Sulfate (*Sp) Aerosol 1 Puff INHALATION 1 puff Q4H PRN Administration shortness of breath or wheezing Amlodipine Besylate 10 mg 03/24/22 21:00 03/25/22 21:19 Amlodipine Besylate 5 Mg Tablet PO 10 mg QHS SEAN Administration Aspirin 81 mg 03/23/22 09:00 03/26/22 09:09 Aspirin 81 Mg Enteric Tablet PO 81 mg QAM SEAN Administration Benzonatate 100 mg 03/25/22 11:21 03/25/22 16:21 Benzonatate 100 Mg Capsule PO 100 mg TID PRN Administration Cough Enoxaparin Sodium 40 mg 03/24/22 09:00 03/26/22 09:09 Enoxaparin 40 Mg/0.4 Ml Syringe SUB-Q 40 mg DAILY SEAN Administration Fluticasone Propionate 1 spray 03/22/22 21:00 03/26/22 09:09 Fluticasone Propionate 0.05% Na Spr 16 Gm Btl (*Bkc) NASAL 1 spray Q12HR SEAN Administration Furosemide 40 mg 03/25/22
--- NOTE | 2022-03-26 16:47 | PM.IMPN ---
Progress Note: A&P Assessment and Plan (1) Troponin level elevated: Code(s): R77.8 - Other specified abnormalities of plasma proteins Status: Acute Assessment and Plan: Patient's initial troponin is 1.140 and is trending down. Patient was started on aspirin, nitro paste and full dose of Lovenox. Cardiology been consulted. Echocardiogram reviewed with mild LV dysfunction ejection fraction 40-45%. Coronary angiogram from 04/24/2020 did not show obstructive CAD. Lipid panel noted. Appreciate Cardiology input who felt her hypoxia related to CHF and asthma exacerbation. Lower venous Doppler negative for DVT. Consider CTA of the chest. Wean O2 as tolerated Echocardiogram suggestive of takotsubo cardiomyopathy HUGO-inhibitor/beta-palmiar Echo repeat in 1 month planned (2) Congestive heart failure: Code(s): I50.9 - Heart failure, unspecified Status: Acute Assessment and Plan: BNP 5670. CXR showing bilateral lower lobe airspace opacities and small bilateral pleural effusions. Echocardiogram with ejection fraction 40-45%. Grade 2 diastolic dysfunction. Hypokinetic apical septum, apical lateral wall, apical inferior wall, apical anterior wall, mid anterior wall, mid inferior septal and mid anteroseptal. Moderate pulmonary hypertension with PASP 55 mm Hg. IV Lasix has been started. Systolic versus diastolic heart failure. Prior coronary angiogram done on 04/2022 with no obstructive coronary artery disease Continue diuresis as tolerated On metoprolol 25 mg daily along with losartan 25 mg daily (3) Asthma exacerbation: Code(s): J45.901 - Unspecified asthma with (acute) exacerbation Status: Acute Assessment and Plan: Patient may have had a mild asthma exacerbation. She have an eosinophilia which is new. She is not on inhalers. Will hold off on steroids at this time since she is not wheezing and appears comfortable. She has albuterol inhaler available. Consider changing to nebulizer treatments if she develops wheezing but right now will continue current regimen. Cough with expectoration. Added doxycycline. Chest x-ray with improving congestive changes Repeat chest x-ray today on oral Lasix currently (4) Chronic kidney disease, stage 3 (moderate): Code(s): N18.3 - Chronic kidney disease, stage 3 (moderate) Status: Acute Assessment and Plan: Patient's kidney function is at baseline at this time. Baseline creatinine 1.2 to 1.5. monitor closely while on diuretic therapy. (5) Hyperglycemia: Code(s): R73.9 - Hyperglycemia, unspecified Status: Acute Assessment and Plan: A1c 5.7. Patient was noted to have hyperglycemia. Probably stress response. A1c at 5.7 Plan DVT prophylaxis: Lovenox 40 mg daily Code status: Full Subjective Date/time seen: 03/26/22 16:47 Interval history: 71yo female with CKD and HTN here for SOB, coughing and chest pain. 03/24/2022 continues to have cough.? Coughs up yellowish sputum.? Shortness of breath on exertion present had some chest pain prior to admission in the retro sternum while she was mowing the yd.? Denies any fever chills.? Reports being treated for pneumonia of the past few weeks. 03/25/2022 continues to have dry cough.? No fever chills.? Shortness of breath has improved.? No leg swelling.? Chest x-ray from yesterday reviewed. 03/26/2022 continues to improve slowly. No fever chills. Shortness of breath on exertion. Cough is still persist. No leg swelling no chest pain Review of Systems Review of Systems: All systems reviewed & are unremarkable except as noted in HPI and below (HPI) Exam Narrative: Gen -pleasant female lying in bed in no acute distress Chest -coarse breath sounds bilaterally, nml RR CV - RRR S1/S2. Telemetry showing no significant dysrhythmias mild systolic murmur noted in aortic area Abd - Soft, NT/ND, Positive BS Ext - No pedal edema. Positive Elizabeth
[2022-03-26] MEDS: amLODIPine BESYLATE 5 MG TABLET 10 MG PO (21:34)
[2022-03-26] MEDS: MELATONIN 5 MG TABLET 10 MG PO (21:34)
[2022-03-27] VITALS: PULSE 84
[2022-03-27 04:00] VITALS: PULSE 87
[2022-03-27 04:55] VITALS: BP 140/84; PULSE 90; RESP 18; TEMP 36.6; O2SAT 95
[2022-03-27 05:36] LABS: Basophils Percent Auto 0.6 % (0.2-1.2); Eosinophils Absolute Auto 1.3 K/mm3 (0-0.3); Eosinophils Percent Auto 19.1 % (0-4.4); Hemoglobin 13.8 g/dL (12.0-15.0); Immature Granulocyte Absolute 0.01 K/mm3 (0.00-0.031); Immature Granulocyte Percent A 0.1 % (0-0.5); Lymphocytes Absolute Auto 2.07 K/mm3 (0.9-3.2); Lymphocytes Percent Auto 29.7 % (18.3-44.2); Mean Corpuscular HGB Conc 32.9 g/dl (32-36); Mean Corpuscular Hemoglobin 31.7 pg (26-34); Mean Corpuscular Volume 96.3 fl (80-100); Mean Platelet Volume 9.7 fl (7.4-10.4); Monocytes Absolute Auto 0.6 K/mm3 (0.1-0.6); Neutrophils Absolute Auto 2.9 K/mm3 (1.3-6.7); Neutrophils Percent Auto 41.5 % (45.5-73.1); Platelet Count Result 213 k/mm3 (150-375); Red Blood Count 4.36 M/mm3 (4.2-5.4); Red Cell Distribution Width 13.4 % (11.5-14.5)
[2022-03-27 05:52] LABS: Alanine Aminotransferase 57 U/L (6-35); Albumin Level 4.1 g/dL (3.5-5.1); Alkaline Phosphatase 97 U/L (38-126); Anion Gap 9 mmol/L (8-16); Aspartate Amino Transferase 58 U/L (14-36); Bilirubin,Total 0.3 mg/dL (0.2-1.3); Blood Urea Nitrogen 40 mg/dL (7-17); Calcium 9.4 mg/dL (8.4-10.2); Carbon Dioxide 29 mmol/L (22-30); Chloride 103 mmol/L (98-107); Estimated CRCL calculation 43 ml/min; Estimated Glomerular Filt Rate 40; Glucose 115 mg/dL (65-110); Magnesium 1.9 mg/dL (1.6-2.3); Potassium 3.4 mmol/L (3.4-5.0); Sodium 141 mmol/L (137-145)
[2022-03-27 08:04] VITALS: PULSE 91
[2022-03-27] MEDS: FLUTICASONE PROPIONATE 0.05% NA SPR 16 GM BTL (*BKC) 1 SPRAY NASAL (08:11)
[2022-03-27] MEDS: ASPIRIN 81 MG ENTERIC TABLET PO (08:11)
[2022-03-27] MEDS: ENOXAPARIN 40 MG/0.4 ML SYRINGE SUB-Q (08:11)
[2022-03-27 08:12] VITALS: PULSE 90
[2022-03-27] MEDS: METOPROLOL SUCCINATE EXT REL 25 MG TABCR PO (08:12)
[2022-03-27] MEDS: VENLAFAXINE HCL XR 37.5 MG CAP PO (08:12)
[2022-03-27] MEDS: LORATADINE 10 MG TABLET PO (08:12)
[2022-03-27] MEDS: LOSARTAN POTASSIUM 25 MG TABLET PO (08:12)
[2022-03-27] MEDS: MULTIVITAMINS THERAPEUTIC TAB (*BKC) 1 TABLET PO (08:12)
[2022-03-27] MEDS: VITAMIN B COMPLEX CAPSULE 1 CAP PO (08:12)
[2022-03-27] MEDS: DOXYCYCLINE 100 MG/NS 100 ML 100 MG/100 ML BAG IVPB (08:19)
--- NOTE | 2022-03-27 09:53 | PM.DS ---
DS: Admitting Diagnosis Discharge Date 03/27/2022 Admitting Diagnosis shortness of breath DS: Discharge Diagnosis Discharge Diagnosis (1) Troponin level elevated: Code(s): R77.8 - Other specified abnormalities of plasma proteins Status: Acute Assessment and Plan: Patient's initial troponin is 1.140 and is trending down. Patient was started on aspirin, nitro paste and full dose of Lovenox. Cardiology been consulted. Echocardiogram reviewed with mild LV dysfunction ejection fraction 40-45%. Coronary angiogram from 04/24/2020 did not show obstructive CAD. Lipid panel reviewed within normal limit. Appreciate Cardiology input who felt her hypoxia related to CHF and asthma exacerbation. Lower venous Doppler negative for DVT. Consider CTA of the chest. Wean O2 as tolerated Echocardiogram suggestive of takotsubo cardiomyopathy HUGO-inhibitor/beta-palmira as ordered. Verapamil switched to amlodipine. Indapamide discontinued Echo repeat in 1 month planned low-salt diet fluid restriction discussed advised (2) Congestive heart failure: Code(s): I50.9 - Heart failure, unspecified Status: Acute Assessment and Plan: BNP 5670. CXR showing bilateral lower lobe airspace opacities and small bilateral pleural effusions. Echocardiogram with ejection fraction 40-45%. Grade 2 diastolic dysfunction. Hypokinetic apical septum, apical lateral wall, apical inferior wall, apical anterior wall, mid anterior wall, mid inferior septal and mid anteroseptal. Moderate pulmonary hypertension with PASP 55 mm Hg. IV Lasix has been started. Systolic versus diastolic heart failure. Prior coronary angiogram done on 04/2022 with no obstructive coronary artery disease Continue diuresis as tolerated On metoprolol 25 mg daily along with losartan 25 mg daily (3) Asthma exacerbation: Code(s): J45.901 - Unspecified asthma with (acute) exacerbation Status: Acute Assessment and Plan: Patient may have had a mild asthma exacerbation. She have an eosinophilia which is new. She is not on inhalers. Will hold off on steroids at this time since she is not wheezing and appears comfortable. She has albuterol inhaler available. Consider changing to nebulizer treatments if she develops wheezing but right now will continue current regimen. Cough with expectoration. Added doxycycline. Chest x-ray with improving congestive changes repeat chest x-ray with improved congestion (4) Chronic kidney disease, stage 3 (moderate): Code(s): N18.3 - Chronic kidney disease, stage 3 (moderate) Status: Acute Assessment and Plan: Patient's kidney function is at baseline at this time. Baseline creatinine 1.2 to 1.5. monitor closely while on diuretic therapy. repeat BMP 1 week discharge (5) Hyperglycemia: Code(s): R73.9 - Hyperglycemia, unspecified Status: Acute Assessment and Plan: A1c 5.7. Patient was noted to have hyperglycemia. Probably stress response. A1c at 5.7 Plan DVT prophylaxis: Lovenox 40 mg daily Code status: Full DS: Summary Hospital Course Hospital Course: see above Time Spent with Patient Time attestation: Total time spent providing and/or coordinating discharge services: 50 minutes Exam Narrative: Gen -pleasant female lying in bed in no acute distress Chest -coarse breath sounds bilaterally, nml RR CV - RRR S1/S2. Telemetry showing no significant dysrhythmias mild systolic murmur noted in aortic area Abd - Soft, NT/ND, Positive BS Ext - No pedal edema. Positive Homans sign on the right. Psych - Nml mood and affect Skin - Warm and dry DS: Data Data Completed and Pending Completed studies during hospitalization: ITS Impressions Chest X-Ray 03/22/22 10:31 IMPRESSION: 1. Opacities in the lower lung zones which could represent mild pulmonary edema, atelectasis or pneumonia. 2. Small bilateral pleural effusions. Venous D
[2022-03-27] MEDS: FUROSEMIDE 40 MG TABLET PO (10:40)
== END 2022-03-27 13:55 | disposition home or self-care (01) | DRG 315 ==
LOC: ANHED 12:02 → ANHIMU 14:20 → ANH3MED 03-25 17:06
PROVIDERS: General Practice; Internal Medicine; Nurse Practitioner Adult Health; Admitting Provider Student in an Organized Health Care Education/Training Program; Emergency Provider Emergency Medicine; PCP Family Medicine; Visit Provider Internal Medicine
DX: I51.81 Takotsubo syndrome (principal); I13.0 Hypertensive heart and chronic kidney disease with heart failure and stage 1 through stage 4 chronic kidney disease, or unspecified chronic kidney disease; J45.901 Unspecified asthma with (acute) exacerbation; I27.20 Pulmonary hypertension, unspecified; I50.9 Heart failure, unspecified; Z20.822 Contact with and (suspected) exposure to COVID-19; I35.2 Nonrheumatic aortic (valve) stenosis with insufficiency; R77.8 Other specified abnormalities of plasma proteins; R73.9 Hyperglycemia, unspecified; K21.9 Gastro-esophageal reflux disease without esophagitis; N18.30 Chronic kidney disease, stage 3 unspecified; F32.9 Major depressive disorder, single episode, unspecified; G47.33 Obstructive sleep apnea (adult) (pediatric); Z98.84 Bariatric surgery status; Z79.899 Other long term (current) drug therapy; Z88.2 Allergy status to sulfonamides; Z86.16 Personal history of COVID-19
CPT/HCPCS: 36415; 71045; 71046; 80048; 80053; 80061; 80069; 83036; 83735; 83880; 84484; 85025; 87070; 87205; 93005; 93306; 93970; 94640; 96372; 99285; A9270; C9803; J1650; J1940; U0003; U0005

== ENCOUNTER 2022-04-01 08:56 | Outpatient (CLI) | payer OTHER, SELFPAY ==
[2022-04-01 19:40] LABS: Anion Gap 10 mmol/L (8-16); Blood Urea Nitrogen 50 mg/dL (7-17); Calcium 10.6 mg/dL (8.4-10.2); Carbon Dioxide 30 mmol/L (22-30); Chloride 100 mmol/L (98-107); Estimated Glomerular Filt Rate 32; Glucose 122 mg/dL (65-110); Potassium 4.3 mmol/L (3.4-5.0); Sodium 140 mmol/L (137-145)
== END 2022-04-01 08:57 | disposition home or self-care (01) ==
PROVIDERS: PCP Family Medicine; Visit Provider Internal Medicine
DX: I51.81 Takotsubo syndrome (principal); N18.9 Chronic kidney disease, unspecified
CPT/HCPCS: 36415; 80048

== ENCOUNTER 2022-04-15 08:54 | Outpatient (CLI) | payer OTHER, SELFPAY ==
[2022-04-15 20:22] LABS: Alanine Aminotransferase 62 U/L (6-35); Albumin Level 4.6 g/dL (3.5-5.1); Alkaline Phosphatase 83 U/L (38-126); Anion Gap 6 mmol/L (8-16); Aspartate Amino Transferase 60 U/L (14-36); Bilirubin,Total 0.3 mg/dL (0.2-1.3); Blood Urea Nitrogen 35 mg/dL (7-17); Calcium 9.8 mg/dL (8.4-10.2); Carbon Dioxide 30 mmol/L (22-30); Chloride 101 mmol/L (98-107); Estimated Glomerular Filt Rate 32; Glucose 110 mg/dL (65-110); Potassium 4.4 mmol/L (3.4-5.0); Sodium 137 mmol/L (137-145)
== END 2022-04-15 08:55 | disposition home or self-care (01) ==
PROVIDERS: PCP Family Medicine; Visit Provider Family Medicine
DX: N32.81 Overactive bladder (principal); E66.9 Obesity, unspecified; R53.83 Other fatigue; N18.30 Chronic kidney disease, stage 3 unspecified; K11.20 Sialoadenitis, unspecified
CPT/HCPCS: 36415; 80053

== ENCOUNTER 2022-04-28 07:19 | Outpatient (CLI) | payer OTHER, MEDICAID, SELFPAY ==
--- NOTE | ~2022-04-28 | US_ITS ---
EXAMINATION: US abdomen limited DATE: 04/28/2022 08:02 INDICATION: TECHNIQUE: Multiple grayscale and Doppler ultrasound images of limited portions of the the abdomen we re obtained. COMPARISON: None available FINDINGS: Visualized portions of the pancreas are normal. Echogenic liver parenchyma. No surface nodu larity. Normal hepatopetal flow in the main portal vein. The gallbladder is normal with no abnormal w all thickening, pericholecystic fluid or stones. The normal common bile duct measures 4 mm. There was no sonographic Kamara sign. IMPRESSION: 1. Echogenic liver as can be seen with steatosis, fibrosis, and hepatitis. 2. Otherwise normal sonographic findings. Reviewed, dictated and finalized at location K.
== END 2022-04-28 07:20 | disposition home or self-care (01) ==
PROVIDERS: PCP Family Medicine; Visit Provider Family Medicine
DX: R74.8 Abnormal levels of other serum enzymes (principal)
CPT/HCPCS: 76705

== ENCOUNTER 2022-05-10 11:02 | Outpatient (CLI) | payer OTHER, MEDICAID, SELFPAY ==
[2022-05-10 20:48] LABS: Hepatitis B Surface Antigen Negative (Negative)
[2022-05-10 20:54] LABS: HAV RESULT Negative (Negative); Hepatitis B Core IgM Result Negative (Negative)
[2022-05-10 21:06] LABS: Hepatitis C Virus Antibody Negative (Negative)
[2022-05-17 07:27] LABS: ALT 31 U/L (6-29); Alpha-2-Macroglobulin 326 mg/dL (106-279); Apolipoprotein A1 174 mg/dL (101-198); Fibrosis Stage F1; GGT 16 U/L (3-65); Haptoglobin 150 mg/dL (43-212); Necroinflammat Act Grade A0; Total Bilirubin 0.4 mg/dL (0.2-1.2)
== END 2022-05-10 11:03 | disposition home or self-care (01) ==
PROVIDERS: PCP Family Medicine; Visit Provider Family Medicine
DX: R53.83 Other fatigue (principal); R74.8 Abnormal levels of other serum enzymes
CPT/HCPCS: 36415; 80074; 81596

== ENCOUNTER 2022-05-18 09:20 | Outpatient (CLI) | payer OTHER, MEDICAID, SELFPAY ==
[2022-05-18 19:05] LABS: Complement C3 137 mg/dL (88-165)
[2022-05-18 19:11] LABS: Albumin Level 4.7 g/dL (3.5-5.1); Anion Gap 12 mmol/L (8-16); Blood Urea Nitrogen 35 mg/dL (7-17); Calcium 9.8 mg/dL (8.4-10.2); Carbon Dioxide 30 mmol/L (22-30); Chloride 97 mmol/L (98-107); Estimated Glomerular Filt Rate 32; Glucose 110 mg/dL (65-110); Phosphorus 3.6 mg/dL (2.5-4.5); Potassium 3.9 mmol/L (3.4-5.0); Sodium 139 mmol/L (137-145)
[2022-05-18 19:32] LABS: Creatinine Urine 68.6 mg/dL; Total Protein Urine Random 10 mg/dL; Ur Ttl Prot Creatinine Ratio 0.15 mg/mg (0-0.20)
[2022-05-18 19:52] LABS: Sodium Urine Random 87 meq/L
[2022-05-18 20:05] LABS: Eosinophil Urine None Seen % (None Seen)
[2022-05-21 21:01] LABS: Albumin 4.4 g/dL (3.8-4.8); Alpha 1 Globulin 0.3 g/dL (0.2-0.3); Alpha 2 Globulin 0.9 g/dL (0.5-0.9); Beta 1 Globulin 0.4 g/dL (0.4-0.6); Protein, Total 7.4 g/dL (6.1-8.1)
[2022-05-23 19:33] LABS: Anti Glomerular Basement Memb <1.0 AI (<1.0)
[2022-05-24 19:47] LABS: Total Protein/Creatinine Ratio 75 mg/g creat (21-161)
[2022-05-25 15:07] LABS: ANCA Screen Negative (Negative)
== END 2022-05-18 09:21 | disposition home or self-care (01) ==
PROVIDERS: PCP Family Medicine; Visit Provider Internal Medicine Nephrology
DX: R80.8 Other proteinuria (principal); I12.9 Hypertensive chronic kidney disease with stage 1 through stage 4 chronic kidney disease, or unspecified chronic kidney disease; N18.32 Chronic kidney disease, stage 3b
CPT/HCPCS: 36415; 80069; 82570; 83520; 84155; 84156; 84165; 84166; 84300; 85999; 86036; 86038; 86160; 86225

== ENCOUNTER → 2022-05-24 10:54 | Outpatient (CLI) | payer OTHER, MEDICAID, SELFPAY ==
--- NOTE | ~2022-05-24 | US_ITS ---
US retroperitoneal comp 05/24/2022 11:50 Procedure: Realtime transabdominal ultrasound of the kidneys and bladder. Indication: Chronic renal disease Comparison: No prior studies for comparison. Findings: Renal echotexture is normal bilaterally without hydronephrosis, contour deforming mass or r enal calculus. The right kidney measures 9.6 cm and left kidney measures 9.6 cm. Bladder within norm al limits. Incidental note is made of thickened heterogeneous endometrium measuring 1.6 cm. Impression: 1: Unremarkable renal ultrasound. No stones, masses or hydronephrosis. 2: Thickened endomtrial complex. The differential diagnosis includes endometrial hyperplasia, polyp a nd carcinoma. Biopsy is recommended. Reviewed, dictated and finalized at location B. Impression: 1: Unremarkable renal ultrasound. No stones, masses or hydronephrosis. 2: Thickened endomtrial complex. The differential diagnosis includes endometria l hyperplasia, polyp and carcinoma. Biopsy is recommended.
== END ==
PROVIDERS: PCP Family Medicine; Visit Provider Internal Medicine Nephrology
DX: N18.32 Chronic kidney disease, stage 3b (principal)
CPT/HCPCS: 76770

== ENCOUNTER 2022-07-15 10:13 | Outpatient (CLI) | payer OTHER, MEDICAID, SELFPAY ==
[2022-07-15 20:21] LABS: Anion Gap 11 mmol/L (8-16); Blood Urea Nitrogen 32 mg/dL (7-17); Carbon Dioxide 26 mmol/L (22-30); Chloride 106 mmol/L (98-107); Estimated Glomerular Filt Rate 30; Glucose 106 mg/dL (65-110); Sodium 143 mmol/L (137-145)
== END 2022-07-15 10:14 | disposition home or self-care (01) ==
PROVIDERS: PCP Family Medicine; Visit Provider Internal Medicine Cardiovascular Disease
DX: I10 Essential (primary) hypertension (principal)
CPT/HCPCS: 36415; 80048

== ENCOUNTER 2022-07-26 08:38 | Outpatient (CLI) | payer OTHER, MEDICAID, SELFPAY ==
--- NOTE | 2022-07-26 | EST_ITS ---
Patient Info Name: Rosita Flores Age: 71 years : 1950 Gender: Female Ht: 67 in Wt: 218 lbs BSA: 2.20 m2 HR: 62 bpm BP: 150 / 84 mmHg Heart Rhythm: Sinus Rhythm Exam Date: 07/26/2022 10:04 AM Exam Location: [facility] Stress Patient Status: Outpatient Admit Date: 07/26/2022 Staff Ordering Physician: Lakeisha, Matt ROCHE Attending Provider: Lakeisha, Matt ROCHE Exercise Technologist: Edie Awan, CT Nurse: FER CESPEDES Exam Type: CA stress jelly w NM Study Info Indications R94.31 - Abnormal electrocardiogram ECG EKG A regadenoson stress test was performed. Summary 1. Sinus rhythm with first-degree AV block with occasional PVC and nonspecific T-wave inversion. 2. No changes noted following injection of Lexiscan. 3. Clinically and electrocardiographically unremarkable Lexiscan stress test. 4. Myocardial perfusion imaging exam to be reported by Radiology. Protocol: Lexiscan Stress ECG Details Stage: REST Duration (min): 9 min : 17 sec HR (bpm): 64 SBP (mmHg): 150 DBP (mmHg): 84 Stage: REST Duration (min): 17 min : 30 sec HR (bpm): 62 SBP (mmHg): 150 DBP (mmHg): 84 Stage: STAGE 1 Duration (min): 1 min : 0 sec HR (bpm): 80 SBP (mmHg): 150 DBP (mmHg): 84 Stage: RECOVERY Duration (min): 1 min : 0 sec HR (bpm): 92 SBP (mmHg): 148 DBP (mmHg): 70 Stage: RECOVERY Duration (min): 2 min : 0 sec HR (bpm): 81 SBP (mmHg): 148 DBP (mmHg): 70 Stage: RECOVERY Duration (min): 3 min : 0 sec HR (bpm): 75 SBP (mmHg): 148 DBP (mmHg): 70 Stage: RECOVERY Duration (min): 3 min : 41 sec HR (bpm): 73 SBP (mmHg): 148 DBP (mmHg): 70 Rest HR: 62 bpm Peak HR: 93 bpm Rest Sys BP: 142 mmHg Peak Sys BP: 148 mmHg Max Pred HR: 148 bpm % Max Pred HR: 63 % Target HR: 126 bpm Max RPP: 13,764 bpm*mmHg Total Time: 1 min : 0 sec Rest Aguilar BP: 100 mmHg Peak Aguilar BP: 70 mmHg Total Dose: 0.4 mg Resting ECG Sinus rhythm with first-degree AV block with occasional PVC and nonspecific T-wave inversion. Stress ECG No changes noted following injection of Lexiscan. Report Signatures
--- NOTE | ~2022-07-26 | NM_ITS ---
EXAMINATION: NM jelly stress w perfusion DATE: 07/26/2022 11:54 INDICATION: Abnormal echocardiogram. TECHNIQUE: Rest images were obtained following intravenous administration of 10.2 mCi Tc99m tetrofosm in (Myoview). The patient was infused intravenously with Lexiscan (regadenoson). Then, 20.4 mCi Tc99m tetrofosmin (Myoview) was administered intravenously, and supine and prone stress images were obtain ed. Data was reconstructed into short axis and horizontal and vertical long axis SPECT images. Gated SPECT images were also obtained. COMPARISON: None. FINDINGS: Breast attenuation artifact is noted. There is no definite reversible or fixed perfusion ab normality to suggest ischemia or infarction. There is no segmental wall motion abnormality. Left ve ntricular ejection fraction measures >70%. IMPRESSION: 1. No definite ischemia or infarct. Breast attenuation artifact decreases sensitivity and specificity in the anterior wall. 2. Normal left ventricular ejection fraction measuring >70%. Reviewed, dictated and finalized at location B. IMPRESSION: 1. No definite ischemia or infarct. Breast attenuation artifact decreases sensi tivity and specificity in the anterior wall. 2. Normal left ventricular ejection fraction measuring >70%.
== END 2022-07-26 08:39 | disposition home or self-care (01) ==
PROVIDERS: PCP Family Medicine; Visit Provider Internal Medicine Cardiovascular Disease
DX: R94.31 Abnormal electrocardiogram [ECG] [EKG] (principal)
CPT/HCPCS: 36415; 78452; 80048; 93017; A9502; J2785

== ENCOUNTER 2022-07-26 14:16 | Outpatient (CLI) | payer OTHER, MEDICAID, SELFPAY ==
[2022-07-26 20:04] LABS: Anion Gap 10 mmol/L (8-16); Blood Urea Nitrogen 32 mg/dL (7-17); Calcium 10.2 mg/dL (8.4-10.2); Carbon Dioxide 27 mmol/L (22-30); Chloride 102 mmol/L (98-107); Estimated Glomerular Filt Rate 30; Glucose 135 mg/dL (65-110); Sodium 139 mmol/L (137-145)
== END 2022-07-26 14:17 | disposition home or self-care (01) ==
PROVIDERS: PCP Family Medicine; Visit Provider Internal Medicine Cardiovascular Disease
DX: I11.0 Hypertensive heart disease with heart failure (principal)
CPT/HCPCS: 36415; 80048

== ENCOUNTER 2022-09-07 13:15 | Outpatient (CLI) | payer OTHER, MEDICAID, SELFPAY ==
--- NOTE | ~2022-09-07 | XR_ITS ---
XR foot RT min 3V DATE: 09/07/2022 13:29 INDICATION: Right foot pain for one month. History of gout. TECHNIQUE: 4 views COMPARISON: None FINDINGS: There is prominent plantar and posterior calcaneal enthesopathy without associated erosive change or periostitis. There is mild osteoarthritis at the first metatarsophalangeal joint. No fracture, dislocation periosteal reaction or bone destruction or erosive change is evident. IMPRESSION: Mild osteoarthritis at first metatarsophalangeal joint Plantar and posterior calcaneal enthesopathy Reviewed, dictated and finalized at location B. OWN OPERATOR
[2022-09-07 18:48] LABS: Basophils Absolute Auto 0.1 K/mm3 (0.0-0.1); Basophils Percent Auto 0.7 % (0.2-1.2); Eosinophils Percent Auto 0.4 % (0-4.4); Hematocrit 41.2 % (37.0-47.0); Hemoglobin 13.2 g/dL (12.0-15.0); Immature Granulocyte Absolute 0.02 K/mm3 (0.00-0.031); Immature Granulocyte Percent A 0.3 % (0-0.5); Lymphocytes Absolute Auto 1.36 K/mm3 (0.9-3.2); Lymphocytes Percent Auto 18.7 % (18.3-44.2); Mean Corpuscular Volume 99.8 fl (80-100); Monocytes Absolute Auto 0.6 K/mm3 (0.1-0.6); Monocytes Percent Auto 8.5 % (2.6-8.5); Neutrophils Absolute Auto 5.2 K/mm3 (1.3-6.7); Neutrophils Percent Auto 71.4 % (45.5-73.1); Platelet Count Result 192 k/mm3 (150-375); Red Blood Count 4.13 M/mm3 (4.2-5.4); Red Cell Distribution Width 12.7 % (11.5-14.5); White Blood Count 7.3 K/mm3 (4.5-10.0)
[2022-09-07 18:58] LABS: Anion Gap 9 mmol/L (8-16); Blood Urea Nitrogen 28 mg/dL (7-17); Calcium 9.5 mg/dL (8.4-10.2); Carbon Dioxide 23 mmol/L (22-30); Chloride 109 mmol/L (98-107); Estimated Glomerular Filt Rate 32; Glucose 103 mg/dL (65-110); Potassium 4.2 mmol/L (3.4-5.0); Sodium 141 mmol/L (137-145)
== END 2022-09-07 13:16 | disposition home or self-care (01) ==
PROVIDERS: PCP Family Medicine; Visit Provider Internal Medicine Cardiovascular Disease
DX: M19.071 Primary osteoarthritis, right ankle and foot (principal); R94.31 Abnormal electrocardiogram [ECG] [EKG]; I11.0 Hypertensive heart disease with heart failure; M77.31 Calcaneal spur, right foot
CPT/HCPCS: 36415; 73630; 80048; 85025

== ENCOUNTER 2022-10-19 13:42 | Outpatient (CLI) | payer MEDICARE, MEDICAID, SELFPAY ==
[2022-10-19 19:43] LABS: Alanine Aminotransferase 28 U/L (6-35); Albumin Level 4.8 g/dL (3.5-5.1); Alkaline Phosphatase 108 U/L (38-126); Aspartate Amino Transferase 52 U/L (14-36); Bilirubin,Total 0.5 mg/dL (0.2-1.3)
[2022-10-19 20:43] LABS: Hemoglobin A1C 5.9 % (<5.7)
== END 2022-10-19 13:43 | disposition home or self-care (01) ==
LOC: ANHBWCLAB 13:44
PROVIDERS: PCP Family Medicine; Visit Provider Family Medicine
DX: R74.8 Abnormal levels of other serum enzymes (principal); R73.09 Other abnormal glucose
CPT/HCPCS: 36415; 80076; 83036

== ENCOUNTER 2022-11-15 12:13 | Outpatient (CLI) | payer MEDICARE, MEDICAID, SELFPAY ==
[2022-11-15 20:18] LABS: Anion Gap 6 mmol/L (8-16); Blood Urea Nitrogen 31 mg/dL (7-17); Calcium 9.6 mg/dL (8.4-10.2); Carbon Dioxide 29 mmol/L (22-30); Chloride 102 mmol/L (98-107); Estimated Glomerular Filt Rate 28; Glucose 103 mg/dL (65-110); Potassium 4.9 mmol/L (3.4-5.0); Sodium 137 mmol/L (137-145)
[2022-11-15 21:27] LABS: Basophils Percent Auto 0.4 % (0.2-1.2); Eosinophils Absolute Auto 0.2 K/mm3 (0-0.3); Eosinophils Percent Auto 3.4 % (0-4.4); Hematocrit 47.8 % (37.0-47.0); Hemoglobin 14.7 g/dL (12.0-15.0); Immature Granulocyte Absolute 0.02 K/mm3 (0.00-0.031); Immature Granulocyte Percent A 0.3 % (0-0.5); Lymphocytes Absolute Auto 1.42 K/mm3 (0.9-3.2); Lymphocytes Percent Auto 20.7 % (18.3-44.2); Mean Corpuscular HGB Conc 30.8 g/dl (32-36); Mean Corpuscular Hemoglobin 31.7 pg (26-34); Mean Platelet Volume 10.3 fl (7.4-10.4); Monocytes Absolute Auto 0.6 K/mm3 (0.1-0.6); Monocytes Percent Auto 8.5 % (2.6-8.5); Neutrophils Absolute Auto 4.6 K/mm3 (1.3-6.7); Neutrophils Percent Auto 66.7 % (45.5-73.1); Platelet Count Result 214 k/mm3 (150-375); Red Blood Count 4.64 M/mm3 (4.2-5.4); Red Cell Distribution Width 13.2 % (11.5-14.5); White Blood Count 6.9 K/mm3 (4.5-10.0)
== END 2022-11-15 12:14 | disposition home or self-care (01) ==
PROVIDERS: PCP Family Medicine; Visit Provider Internal Medicine Cardiovascular Disease
DX: R94.31 Abnormal electrocardiogram [ECG] [EKG] (principal); I50.9 Heart failure, unspecified; I10 Essential (primary) hypertension
CPT/HCPCS: 36415; 80048; 85025

== ENCOUNTER 2023-05-02 13:02 | Outpatient (CLI) | payer MEDICARE, MEDICAID, SELFPAY ==
[2023-05-02 19:16] LABS: Hematocrit 47.8 % (37.0-47.0); Hemoglobin 15.1 g/dL (12.0-15.0); Mean Corpuscular HGB Conc 31.6 g/dl (32-36); Mean Corpuscular Hemoglobin 32.4 pg (26-34); Mean Corpuscular Volume 102.6 fl (80-100); Mean Platelet Volume 9.6 fl (7.4-10.4); Platelet Count Result 244 k/mm3 (150-375); Red Blood Count 4.66 M/mm3 (4.2-5.4); Red Cell Distribution Width 13.2 % (11.5-14.5); White Blood Count 8.2 K/mm3 (4.5-10.0)
[2023-05-02 20:30] LABS: Albumin Level 4.4 g/dL (3.5-5.1); Anion Gap 10 mmol/L (8-16); Blood Urea Nitrogen 30 mg/dL (7-17); Calcium 10.1 mg/dL (8.4-10.2); Carbon Dioxide 27 mmol/L (22-30); Chloride 102 mmol/L (98-107); Estimated Glomerular Filt Rate 32; Glucose 99 mg/dL (65-110); Phosphorus 3.8 mg/dL (2.5-4.5); Sodium 139 mmol/L (137-145)
[2023-05-02 20:33] LABS: Parathyroid Intact 82.5 pg/mL (7.5-53.5)
[2023-05-02 20:44] LABS: Alanine Aminotransferase 22 U/L (6-35); Albumin Level 4.4 g/dL (3.5-5.1); Alkaline Phosphatase 85 U/L (38-126); Anion Gap 12 mmol/L (8-16); Aspartate Amino Transferase 43 U/L (14-36); Bilirubin,Total 0.6 mg/dL (0.2-1.3); Blood Urea Nitrogen 31 mg/dL (7-17); Calcium 10.1 mg/dL (8.4-10.2); Carbon Dioxide 27 mmol/L (22-30); Chloride 101 mmol/L (98-107); Estimated Glomerular Filt Rate 32; Glucose 98 mg/dL (65-110); Potassium 4.2 mmol/L (3.4-5.0); Sodium 140 mmol/L (137-145)
[2023-05-02 21:42] LABS: Hemoglobin A1C 5.2 % (<5.7)
== END 2023-05-02 13:03 | disposition home or self-care (01) ==
PROVIDERS: PCP Family Medicine; Visit Provider Internal Medicine Nephrology
DX: E55.9 Vitamin D deficiency, unspecified (principal); I12.9 Hypertensive chronic kidney disease with stage 1 through stage 4 chronic kidney disease, or unspecified chronic kidney disease; N18.32 Chronic kidney disease, stage 3b; N25.81 Secondary hyperparathyroidism of renal origin; E66.9 Obesity, unspecified; G47.33 Obstructive sleep apnea (adult) (pediatric); N18.9 Chronic kidney disease, unspecified; N32.81 Overactive bladder; R07.9 Chest pain, unspecified; Z79.899 Other long term (current) drug therapy; Z12.31 Encounter for screening mammogram for malignant neoplasm of breast
CPT/HCPCS: 36415; 80053; 80069; 82306; 83036; 83970; 85027

== ENCOUNTER 2023-05-03 13:12 | Outpatient (CLI) | payer MEDICARE, MEDICAID, SELFPAY ==
[2023-05-04 00:36] LABS: Creatinine Urine 173.7 mg/dL; Total Protein Urine Random 19 mg/dL; Ur Ttl Prot Creatinine Ratio 0.11 mg/mg (0-0.20)
== END 2023-05-03 13:13 | disposition home or self-care (01) ==
PROVIDERS: PCP Family Medicine; Visit Provider Internal Medicine Nephrology
DX: I12.9 Hypertensive chronic kidney disease with stage 1 through stage 4 chronic kidney disease, or unspecified chronic kidney disease (principal); N18.32 Chronic kidney disease, stage 3b; N25.81 Secondary hyperparathyroidism of renal origin; E55.9 Vitamin D deficiency, unspecified
CPT/HCPCS: 82570; 84156

== ENCOUNTER 2023-06-28 10:33 | Outpatient (CLI) | payer MEDICARE, MEDICAID, SELFPAY ==
[2023-06-28 19:15] LABS: Hematocrit 46.1 % (37.0-47.0); Hemoglobin 14.4 g/dL (12.0-15.0); Mean Corpuscular HGB Conc 31.2 g/dl (32-36); Mean Corpuscular Hemoglobin 32.7 pg (26-34); Mean Corpuscular Volume 104.8 fl (80-100); Mean Platelet Volume 9.8 fl (7.4-10.4); Platelet Count Result 247 k/mm3 (150-375); Red Cell Distribution Width 13.6 % (11.5-14.5); White Blood Count 8.2 K/mm3 (4.5-10.0)
[2023-06-28 19:27] LABS: Appearance Urine Clear (Clear); Bacteria Urine None Seen /hpf; Bilirubin Urine Negative (Negative); Blood Urine Negative (Negative); Color Urine Yellow (Yellow); Glucose Urine UA 3+ mg/dL (Negative); Ketones Urine Negative (Negative); Leukocyte Esterase Ur 1+ LEU/UL (NEGATIVE); Mucus Urine Present /lpf; Need Manual Microscopic Reviewed; Nitrate Urine Negative (Negative); Non Pathogenic Casts 0-2; Protein Urine Negative (Negative); RBC Urine 0-2 /hpf (0-2); Specific Grav Ur 1.023 (1.001-1.035); Squamous Epithelial Cell Urine None seen /hpf (Few); Urobilinogen Urine 0.2 mg/dL (<2.0); WBC Urine 0-5 /hpf (0-3); pH Urine 5.5 (5.0-9.0)
[2023-06-28 19:29] LABS: Add Urine Microscopic? YES
[2023-06-28 19:44] LABS: Anion Gap 8 mmol/L (8-16); Blood Urea Nitrogen 30 mg/dL (7-17); Calcium 9.7 mg/dL (8.4-10.2); Carbon Dioxide 26 mmol/L (22-30); Chloride 105 mmol/L (98-107); Estimated Glomerular Filt Rate 34; Glucose 96 mg/dL (65-110); Potassium 4.5 mmol/L (3.4-5.0); Sodium 139 mmol/L (137-145)
== END 2023-06-28 10:34 | disposition home or self-care (01) ==
PROVIDERS: PCP Nurse Practitioner Adult Health; Visit Provider Nurse Practitioner Adult Health
DX: R29.6 Repeated falls (principal)
CPT/HCPCS: 36415; 80048; 81001; 85027

== ENCOUNTER 2023-06-28 11:18 | Outpatient (CLI) | payer MEDICARE, MEDICAID, SELFPAY ==
--- NOTE | ~2023-06-28 | CT_ITS ---
EXAMINATION: CT brain wo con INDICATION: Dizziness, lack of coordination COMPARISON: None TECHNIQUE: Standard unenhanced head CT. The dose-length product (DLP) was 605.33 mGy-cm. The mA was a djusted according to patient size. Iterative reconstruction technique was employed. FINDINGS: No acute intraparenchymal hemorrhage. No evidence of mass lesion. No evidence of acute infa rction. There is moderate periventricular and subcortical hypodensity probably related to small vesse l ischemic disease. There is moderate prominence of the sulci and ventricles related to cerebral atro phy. Intracranial calcified cerebral atherosclerosis is noted. No extra-axial collections. No mass ef fect or midline shift. The orbits and soft tissues are unremarkable. The visualized sinuses and masto id air cells are well aerated. IMPRESSION: 1. No acute intracranial abnormality. 2. Age related findings. Reviewed, dictated and finalized at location L.
== END 2023-06-28 11:19 | disposition home or self-care (01) ==
PROVIDERS: PCP Family Medicine; Visit Provider Nurse Practitioner Adult Health
DX: R29.6 Repeated falls (principal); R42 Dizziness and giddiness; R29.898 Other symptoms and signs involving the musculoskeletal system
CPT/HCPCS: 36415; 70450; 80048; 81001; 85027

== ENCOUNTER 2023-08-10 11:36 | Outpatient (CLI) | payer MEDICARE, MEDICAID, SELFPAY ==
--- NOTE | ~2023-08-10 | MMUS_ITS ---
EXAMINATION: MM diag kwesi implant BI w rosas, US breast LT limited HISTORY: Abnormal swelling of the left breast after fall TECHNIQUE: Craniocaudal, mediolateral, and mediolateral oblique 3-D tomosynthesis images with implant displacement of the right breast were performed and synthetic 2-D images were generated. Craniocaud al, mediolateral oblique, and mediolateral views of the breasts without implant displacement were obt ained using full field digital mammography. CAD analysis was submitted and interpreted. High resoluti on limited left breast ultrasound was performed. COMPARISON: 12/05/2020, 12/25/2015 BREAST PARENCHYMAL COMPOSITION: There are scattered areas of fibroglandular density. FINDINGS: MAMMOGRAPHIC FINDINGS: There is chronic bilateral breast implant rupture. There is a chronic large fluid collection in the l eft breast implant cavity. There is new focal asymmetry along the anterior and inferior margin of the left breast adjacent to the implant. No suspicious mass, calcification, or architectural distortion are identified in the right breast to suggest malignancy. ULTRASOUND: Ultrasound of the left breast demonstrates intracapsular and extracapsular rupture of the left breast implant. The extracapsular component likely accounts for the new left breast focal asymmetry. IMPRESSION: 1. Chronic bilateral breast implant ruptures and large fluid collection in the left breast implant ca vity without mammographic or sonographic evidence of malignancy. Extracapsular rupture of the left b reast implant likely accounts for the abnormal left breast swelling and mammographic findings. Consid er surgical evaluation. 2. Recommend routine screening mammography in one year. BI-RADS Category 2: Benign finding(s). Reviewed, dictated and finalized at location A. IMPRESSION: 1. Chronic bilateral breast implant ruptures and large fluid collection in the left breast implant cavity without mammographic or sonographic evidence of dorothy gnancy. Extracapsular rupture of the left breast implant likely accounts for t he abnormal left breast swelling and mammographic findings. Consider surgical e valuation. 2. Recommend routine screening mammography in one year. BI-RADS Category 2: Benign finding(s).
--- NOTE | ~2023-08-10 | DEXA_ITS ---
Bone Density Report Name: RAZ MIN Age: 72 Sex: Female Ethnicity: White Date of : 1950 Indication: postmenopausal; screening for osteoporosis; height loss; asthma or emphysema; Referring Provider: TIP ZHOU Study: Bone densitometry was performed. Exam Date: August 10, 2023 Accession number: [id number] Bone Density: Region BMD T-score Z-score Classification AP Spine(L1-L4) 1.016 -0.3 2.1 Normal Femoral Neck (Left) 0.769 -0.7 1.3 Normal Total Hip (Left) 0.897 -0.4 1.4 Normal Femoral Neck (Right) 0.706 -1.3 0.7 Osteopenia Total Hip (Right) 0.841 -0.8 0.9 Normal Total Hip Mean 0.869 -0.6 1.2 Normal World Health Organization criteria for BMD impression classify patients as: Normal (T-score at or above -1.0), Osteopenia (T-score between -1.0 and -2.5), or Osteoporosis (T-score at or below -2.5). 10-year Fracture Risk(1): Major Osteoporotic Fracture 10% Hip Fracture 1.7% Reported Risk Factors: [place] (), Neck BMD=0.706, BMI=28.9 (1) FRAX(R) Version 3.08. Fracture probability calculated for an untreated patient. Fracture probability may be lower if the patient has received treatment. Previous Exams: Region Exam Age BMD T-score BMD Change BMD Change Date g/cm2 vs Baseline vs Previous Total Hip(Left) 08/10/2023 72 0.897 -0.4 -0.063 (-6.6%) -0.063 (-6.6%) 12/05/2020 70 0.960 0.1 Total Hip(Right) 08/10/2023 72 0.841 -0.8 -0.102 (-10.8% -0.102 (-10.8% 12/05/2020 70 0.943 0.0 *Denotes significance at 95% confidence level, LSC for Total Hip = 0.027 g/cm2 # Denotes dissimilar scan types or analysis methods Clinical Information Provided by Patient: Has used the following medications: Vitamin D Has the following medical conditions: Asthma or Emphysema Patient maximum height was 68 Menopause Age: 57 Drinks caffeinated beverages Onset of menses at age 12 Number of children 1 Impression: The patient has low bone mass, based on the Right Femoral Neck T-score. The patient has an estimated ten-year risk of hip fracture of 1.7% and an estimated ten-year risk of major fracture of 10%, based on the WHO FRAX algorithm. No significant bone loss was observed. Discussion: BONE DENSITY IS LOW AT ONE OR MORE SKELETAL SITES. This patient's lowest T-score is low at one or more skeletal sites. It meets the World Health Organization's (WHO) criteria for ?low bone mass? (T-score between -1.0 and -2.5). The patient's 10-year risk of fract
--- NOTE | ~2023-08-10 | US_ITS ---
US abdomen limited INDICATION: Abnormal levels of serum enzymes PROCEDURE: Realtime right upper abdominal ultrasound. COMPARISON: No prior studies for comparison. FINDINGS: The pancreas is normal without focal mass or pancreatic ductal dilation. Liver echotexture is normal without focal mass or intrahepatic biliary dilatation. There is normal directional flow i n the portal vein. The gallbladder is normal without stones, gallbladder wall thickening or pericholecystic fluid. Comm on bile duct measures 3 mm. No sonographic Kamara's sign. IMPRESSION: 1: Normal limited abdominal ultrasound. Reviewed, dictated and finalized at location B.
== END 2023-08-10 11:37 | disposition home or self-care (01) ==
PROVIDERS: PCP Family Medicine; Visit Provider Family Medicine
DX: Z78.0 Asymptomatic menopausal state (principal); N63.0 Unspecified lump in unspecified breast; G47.33 Obstructive sleep apnea (adult) (pediatric); I21.9 Acute myocardial infarction, unspecified; J45.901 Unspecified asthma with (acute) exacerbation; J45.909 Unspecified asthma, uncomplicated; K21.9 Gastro-esophageal reflux disease without esophagitis; M31.30 Wegener's granulomatosis without renal involvement; N32.81 Overactive bladder; R74.8 Abnormal levels of other serum enzymes; R92.8 Other abnormal and inconclusive findings on diagnostic imaging of breast
CPT/HCPCS: 76642; 76705; 77062; 77066; 77080; G0279

== ENCOUNTER 2023-08-18 15:15 | Outpatient (CLI) | payer MEDICARE, MEDICAID, SELFPAY ==
[2023-08-18 18:36] LABS: Albumin Level 4.3 g/dL (3.5-5.1); Anion Gap 8 mmol/L (8-16); Blood Urea Nitrogen 23 mg/dL (7-17); Calcium 10.1 mg/dL (8.4-10.2); Carbon Dioxide 27 mmol/L (22-30); Chloride 106 mmol/L (98-107); Estimated Glomerular Filt Rate 29; Glucose 107 mg/dL (65-110); Phosphorus 3.4 mg/dL (2.5-4.5); Potassium 4.5 mmol/L (3.4-5.0); Sodium 141 mmol/L (137-145)
[2023-08-18 18:42] LABS: Creatinine Urine 195.2 mg/dL; Total Protein Urine Random 28 mg/dL; Ur Ttl Prot Creatinine Ratio 0.14 mg/mg (0-0.20)
== END 2023-08-18 15:16 | disposition home or self-care (01) ==
LOC: ANHBWCLAB 15:17
PROVIDERS: PCP Family Medicine; Visit Provider Internal Medicine Nephrology
DX: I12.9 Hypertensive chronic kidney disease with stage 1 through stage 4 chronic kidney disease, or unspecified chronic kidney disease (principal); N18.32 Chronic kidney disease, stage 3b
CPT/HCPCS: 36415; 80069; 82570; 84156

== ENCOUNTER 2023-08-25 10:09 | Observation (INO) | payer MEDICARE, MEDICAID, SELFPAY ==
[2023-08-25] VITALS (22 sets, daily range): BP systolic 125–151; BP diastolic 71–92; PULSE 60–81; RESP 12–27; TEMP 36.4; O2SAT 97–100; BMI 28.5
--- NOTE | ~2023-08-25 | CT_ITS ---
EXAMINATION: CT brain wo con DATE: 08/26/2023 19:52 INDICATION: Fall TECHNIQUE: Computed tomography (CT) of the head was performed without intravenous contrast. Sagittal and coronal reconstructions were performed. The mA was adjusted according to patient size. Iterative reconstruction technique was employed. The dose-length product was 605.33 mGy-cm. COMPARISON: head CT dated 06/28/23 FINDINGS: No fracture. No acute intracranial hemorrhage, acute infarction or abnormal extra axial fluid collect ion. There is unchanged moderate scattered white matter hypoattenuation consistent with chronic small vessel ischemic disease. Symmetric prominence of the sulci and ventricles consistent with mild to mo derate age-appropriate diffuse cerebral volume loss. No mass/mass effect. Changes of bilateral intra ocular lens replacement. The orbits, paranasal sinuses and mastoid air cells are normal. IMPRESSION: 1. No fracture or acute intracranial process. 2. Age-related changes including mild to moderate diffuse volume loss and moderate scattered white ma tter hypoattenuation consistent with chronic small vessel ischemic disease. Reviewed, dictated and finalized at location A. AND VIDEO EDITOR IMPRESSION: 1. No fracture or acute intracranial process. 2. Age-related changes including mild to moderate diffuse volume loss and moder ate scattered white matter hypoattenuation consistent with chronic small vessel ischemic disease.
--- NOTE | ~2023-08-25 | CT_ITS ---
EXAMINATION: CT abdomen pelvis w con DATE: 08/25/2023 12:03 INDICATION: Left flank tenderness. Nausea and vomiting. Diarrhea. TECHNIQUE: Computed tomography (CT) of the abdomen and pelvis was performed with 100 mL Omnipaque 350 intravenous contrast. Automated exposure control and iterative reconstruction technique were employe d. The dose-length product was 609.08 mGy-cm. COMPARISON: None. FINDINGS: The visualized portions of the lung bases demonstrate mild atelectasis. No pleural effusion . The heart size is normal. No pericardial effusion. There is a small sliding hiatal hernia. There ar e changes of gastric sleeve procedure. The ruptured bilateral breast implants. There is a 5 mm cyst i n the liver. The gallbladder, pancreas, spleen, and adrenal glands are normal. There is cortical thin edmundo of the kidneys. There are no dilated loops of bowel. The appendix is normal. The endometrial com plex measures 13 mm in thickness. There are no pathologically enlarged lymph nodes. There is no free intraperitoneal fluid. Aortic atherosclerosis is noted. There is mild thoracic and lumbar spondylosis . IMPRESSION: 1. Thickened endometrial complex. The differential diagnosis includes endometrial hyperplasia, polyp, and carcinoma. Biopsy is recommended. Reviewed, dictated and finalized at location A. CREAM FREEZER IMPRESSION: 1. Thickened endometrial complex. The differential diagnosis includes endometri al hyperplasia, polyp, and carcinoma. Biopsy is recommended.
[2023-08-25 10:47] LABS: Basophils Percent Auto 0.3 % (0.2-1.2); Eosinophils Percent Auto 0.1 % (0-4.4); Hematocrit 45.7 % (37.0-47.0); Hemoglobin 14.7 g/dL (12.0-15.0); Immature Granulocyte Absolute 0.02 K/mm3 (0.00-0.031); Immature Granulocyte Percent A 0.3 % (0-0.5); Lymphocytes Absolute Auto 1.33 K/mm3 (0.9-3.2); Lymphocytes Percent Auto 19.2 % (18.3-44.2); Mean Corpuscular HGB Conc 32.2 g/dl (32-36); Mean Corpuscular Hemoglobin 31.7 pg (26-34); Mean Corpuscular Volume 98.7 fl (80-100); Mean Platelet Volume 9.4 fl (7.4-10.4); Monocytes Absolute Auto 0.5 K/mm3 (0.1-0.6); Monocytes Percent Auto 7.4 % (2.6-8.5); Neutrophils Percent Auto 72.7 % (45.5-73.1); Platelet Count Result 211 k/mm3 (150-375); Red Blood Count 4.63 M/mm3 (4.2-5.4); Red Cell Distribution Width 12.8 % (11.5-14.5); White Blood Count 6.9 K/mm3 (4.5-10.0)
[2023-08-25 11:10] LABS: Alanine Aminotransferase 28 U/L (6-35); Albumin Level 4.2 g/dL (3.5-5.1); Alkaline Phosphatase 99 U/L (38-126); Anion Gap 13 mmol/L (8-16); Aspartate Amino Transferase 40 U/L (14-36); Bilirubin,Total 0.7 mg/dL (0.2-1.3); Blood Urea Nitrogen 20 mg/dL (7-17); Calcium 9.9 mg/dL (8.4-10.2); Carbon Dioxide 21 mmol/L (22-30); Chloride 106 mmol/L (98-107); Estimated CRCL calculation 34 ml/min; Estimated Glomerular Filt Rate 37; Glucose 108 mg/dL (65-110); Lipase 122 U/L (23-300); Potassium 3.8 mmol/L (3.4-5.0); Sodium 140 mmol/L (137-145)
[2023-08-25 11:26] LABS: Appearance Urine Cloudy (Clear); Bacteria Urine None Seen /hpf; Bilirubin Urine Negative (Negative); Blood Urine Negative (Negative); Color Urine Yellow (Yellow); Glucose Urine UA 3+ mg/dL (Negative); Hyaline Casts Urine Present /lpf; Ketones Urine Trace mg/dL (Negative); Leukocyte Esterase Ur 2+ LEU/UL (Negative); Need Manual Microscopic Reviewed; Nitrate Urine Negative (Negative); Protein Urine Trace mg/dL (Negative); RBC Urine 0-2 /hpf (0-2); Specific Grav Ur 1.026 (1.001-1.035); Squamous Epithelial Cell Urine Few /hpf (Few); Urobilinogen Urine 0.2 mg/dL (<2.0); WBC Urine 21-50 /hpf; pH Urine 5.5 (5.0-9.0)
[2023-08-25 11:27] LABS: Add Urine Microscopic? YES
--- NOTE | 2023-08-25 11:42 | ED.GENADULT ---
HPI - General Adult General Chief complaint: Nausea/Vomiting/Diarrhea <Ranjit Pressley PA-C - Last Filed: 08/25/23 18:15> Stated complaint: vomitting/diarrhea x 2 weeks <PABLO Breaux Last Filed: 08/25/23 18:15> Time Seen by Provider: 08/25/23 11:04 <Ranijt Pressley PA-C - Last Filed: 08/25/23 18:15> Source: patient <PABLO Breaux Last Filed: 08/25/23 18:15> Mode of arrival: ambulatory <PABLO Breaux Last Filed: 08/25/23 18:15> Limitations: no limitations <Ranjit Pressley PA-C - Last Filed: 08/25/23 18:15> History of Present Illness HPI narrative: this is a 73-year-old female who presents to the ED with chief complaint nausea vomiting the past 2 weeks. She also endorses regular loose stools. Denies any recent antibiotics or hospitalization. Partially seen by her primary care doctor told to come to the ED today a CT scan. reports she is unable to keep food down and has been tolerating fluids okay. also states that she has difficulty urinating, states only a few drops come out the time. Denies fevers, chills , abdominal pain, shortness of breath, cough, chest pain, flank pain. Denies GI bleeding symptoms. <Ranjit Pressley PA-C - Last Filed: 08/25/23 18:15> Related Data Home medications: Home Medications Medication Instructions Recorded Confirmed multivitamin 1 tablet PO DAILY 03/22/22 08/17/23 vitamin B complex 1 tablet PO DAILY 03/22/22 08/17/23 empagliflozin 10 mg tablet 10 mg PO DAILY 12/28/22 08/17/23 (Jardiance) <PABLO Breaux Last Filed: 08/25/23 18:15> Allergies/adverse reactions: Allergies Allergy/AdvReac Type Severity Reaction Status Date / Time adhesive tape Allergy Intermediate itch and a Verified 08/25/23 10:28 rash Sulfa (Sulfonamide AdvReac Unknown Nausea Verified 08/25/23 10:28 Antibiotics) <Ranjit Pressley PA-C - Last Filed: 08/25/23 18:15> Review of Systems Review of Systems: All systems as dictated in HPI <Ranjit Pressley PA-C - Last Filed: 08/25/23 18:15> PMFSH Past Medical History Medical History: Medical History (Updated 08/25/23 @ 17:56 by Ranjit Pressley PA-C) Asthma Chronic GERD Chronic kidney disease, stage 3 (moderate) Hypertensive chronic kidney disease with stage 1 through stage 4 chronic kidney disease, or unspecified chronic kidney disease Impaired fasting glucose Major depressive disorder JONELLE (obstructive sleep apnea) <Ranjit Pressley PA-C - Last Filed: 08/25/23 18:15> Surgical History Surgical History: Surgical History History of gastric surgery s/p gastric sleeve <Ranjit Pressley PA-C - Last Filed: 08/25/23 18:15> Family History Family History: Family History Mother Family history of diabetes mellitus in first degree relative Father Family history of coronary artery disease <Ranjit Pressley PA-C - Last Filed: 08/25/23 18:15> Social History Social History: Social History Smoking status: Never smoker Second hand tobacco smoke exposure: Yes Alcohol intake: never Substance use: never Substance use type: does not use Lack of Transportation: No Lack of Food: Never True Current Housing: I Have Housing Concerned About Future Housing: No Difficulty Paying Gas/Electric Bills: No Difficulty Paying for Meds: No Currently Unemployed: No Education: High School Diploma/GED Difficulty w/ Childcare or Family Care: No Living arrangements: alone Occupation/Education: occupation Gender identity (if verbalized by the patient): Female Spiritual care concerns: No Agree to blood products: Yes <Ranjit Pressley PA-C - Last Filed: 08/25/23 18:15> Exam Narrative: GENERAL: Well-appearing, well-nourished, and in no acute distress. HEAD: Normocephalic, atrauma
[2023-08-25] MEDS: ONDANSETRON INJ 4 MG/2 ML VIAL IV PUSH ×3 (11:51→23:07)
[2023-08-25] MEDS: SODIUM CHLORIDE 0.9% IV 1,000 ML 125 ML IV CONT ×2 (14:01→23:02)
--- NOTE | 2023-08-25 14:07 | PC.NURSE ---
Ordered food tray for pt.
--- NOTE | 2023-08-25 15:51 | ADMGEN ---
This patient, Rosita Flores, was admitted to [facility] Room 323-01. Patient/family oriented to hospital policies and general routines including ID bracelet, bed and alarms, visiting hours, pain management, procedures, bathroom and other care routines, personal items, smoking policy, room service/diet, and visiting hours. Information on how to activate the Rapid Response Team has been discussed. Patient/Family are encouraged to report perceived risks to care and to ask questions if they do not understand what they are told or what they should do.
--- NOTE | 2023-08-25 16:21 | PC.NURSE ---
attempted to call automation machine operator hospitalist 4-12am to inform of multiple loose stools, unable to take the call, not on the clock yet. texted Dr Lucio to inform her of inability to contact current automation machine operator EXPERIENCED TRUCK DRIVER. She stated to wait until she is on the clock and reach back out to her to chart notification.
--- NOTE | 2023-08-25 21:47 | PM.IMHP ---
H&P: HPI History of Present Illness Date/Time: 08/25/23 21:47 Chief Complaint: Nausea vomiting and diarrhea with abdominal pain Narrative: A 73-year-old female patient with past medical history of asthma, GERD, HFrEF with ECHO in 03/2022 w/EF of 40-45%, chronic kidney disease stage 3, depression, obstructive sleep apnea, status post gastric sleeve many years ago, and leakage of breast implant after falling on her left side in June resulting in left breast enlargement, pain and deformity, with previous breast implant on the right side rupturing in 2008 with no intervention performed to either as she is unable to afford surgery to repair them. She presented to the ER today with complaints of two weeks of upset stomach, the inability to keep down any solid foods and keeping only some liquids down, and watery diarrhea without any mucous, melena or hematochezia. She also has complaints of pain in her abdomen that is described as a cramping. She denies any recent known illnesses and she denies any recent abx. She does endorse that she has had urinary hesitancy for approximately 2 weeks as well. She denies any fevers and no other complaints of pain or distress. In the ER a workup was performed and was significant for a normal CBC, and CMP, but a UA that showed trace ketones, 3+ Glucose, 2+ Leukocyte Esterase, and 21-50 WBC's. Urine culture is pending. I reviewed the EMR and pt had a UTI from Enterococcus in 2020. Urine culture is currently pending. CT of the abdomen and pelvis was performed and it demonstrated no pericardial effusion, there was a small noted sliding hiatal hernia, there were changes of gastric sleeve procedure, bilateral ruptured breast implants were noted there is a noted 5 mm cyst in the liver, the gallbladder, pancreas, spleen and adrenal glands were normal. There was a cortical thinning of the kidneys and no dilated loops of bowel. The appendix was noted to be normal. The endometrial complex measures 13 mm in thickness. There were no pathologically enlarged lymph nodes. There was no free intraperitoneal fluid. There is noted aortic atherosclerosis and mild thoracic and lumbar spondylosis. The overall impression was that of a thickened endometrial complex that patient will need follow-up as an outpatient for. There were no acute signs of infection or of causation of diarrhea noted. She has been started on Rocephin 1G Q24 hrs for abx treatment and IVF of 125 ml/hr for hydration. Review of Systems Review of Systems: All systems reviewed & are unremarkable except as noted in HPI and below PMFSH Past Medical History Medical History (Updated 08/25/23 @ 22:18 by KAR Anders) Asthma Chronic GERD Chronic kidney disease, stage 3 (moderate) Heart failure Hypertensive chronic kidney disease with stage 1 through stage 4 chronic kidney disease, or unspecified chronic kidney disease Impaired fasting glucose Major depressive disorder JONELLE (obstructive sleep apnea) Surgical History Surgical History History of gastric surgery s/p gastric sleeve Family History Family History Mother Family history of diabetes mellitus in first degree relative Father Family history of coronary artery disease Social History Social History Smoking status: Never smoker Second hand tobacco smoke exposure: Yes Alcohol intake: never Substance use: never Substance use type: does not use Lack of Transportation: No Lack of Food: Never True Current Housing: I Have Housing Concerned About Future Housing: No Difficulty Paying Gas/Electric Bills: No Difficulty Paying for Meds: No Currently Unemployed: No Education: High School Diploma/GED Difficulty w/ Childcare or Family Care: No Living arrangements: alone Occupation/Education: occupation Ge
[2023-08-25] MEDS: SACUBITRIL/VALSARTAN 97-103 MG TABLET 1 TAB PO (23:00)
[2023-08-26] VITALS (7 sets, daily range): BP systolic 130–156; BP diastolic 63–81; PULSE 61–82; RESP 14–18; TEMP 36.3–37; O2SAT 97–100
[2023-08-26 07:05] LABS: Basophils Percent Auto 0.6 % (0.2-1.2); Eosinophils Percent Auto 0.2 % (0-4.4); Hematocrit 42.2 % (37.0-47.0); Hemoglobin 13.2 g/dL (12.0-15.0); Immature Granulocyte Absolute 0.01 K/mm3 (0.00-0.031); Immature Granulocyte Percent A 0.2 % (0-0.5); Lymphocytes Absolute Auto 1.53 K/mm3 (0.9-3.2); Lymphocytes Percent Auto 32.4 % (18.3-44.2); Mean Corpuscular HGB Conc 31.3 g/dl (32-36); Mean Corpuscular Hemoglobin 31.5 pg (26-34); Mean Corpuscular Volume 100.7 fl (80-100); Mean Platelet Volume 9.4 fl (7.4-10.4); Monocytes Absolute Auto 0.5 K/mm3 (0.1-0.6); Monocytes Percent Auto 11.2 % (2.6-8.5); Neutrophils Absolute Auto 2.6 K/mm3 (1.3-6.7); Neutrophils Percent Auto 55.4 % (45.5-73.1); Platelet Count Result 151 k/mm3 (150-375); Red Blood Count 4.19 M/mm3 (4.2-5.4); Red Cell Distribution Width 12.8 % (11.5-14.5); White Blood Count 4.7 K/mm3 (4.5-10.0)
[2023-08-26 07:15] LABS: Alanine Aminotransferase 23 U/L (6-35); Albumin Level 3.1 g/dL (3.5-5.1); Alkaline Phosphatase 76 U/L (38-126); Anion Gap 7 mmol/L (8-16); Aspartate Amino Transferase 31 U/L (14-36); Bilirubin,Total 0.5 mg/dL (0.2-1.3); Blood Urea Nitrogen 16 mg/dL (7-17); Calcium 8.7 mg/dL (8.4-10.2); Carbon Dioxide 21 mmol/L (22-30); Chloride 111 mmol/L (98-107); Estimated CRCL calculation 39 ml/min; Estimated Glomerular Filt Rate 44; Glucose 96 mg/dL (65-110); Potassium 3.6 mmol/L (3.4-5.0); Sodium 139 mmol/L (137-145)
[2023-08-26] MEDS: hydrALAZINE HCL 50 MG TABLET PO ×3 (09:35→17:39)
[2023-08-26] MEDS: oxyBUTYnin CHLORIDE XL 5 MG TAB.ER.24 10 MG PO (09:35)
[2023-08-26] MEDS: MULTIVITAMINS THERAPEUTIC TAB (*BKC) 1 TABLET PO (09:35)
[2023-08-26] MEDS: SPIRONOLACTONE 25 MG TABLET PO (09:36)
[2023-08-26] MEDS: VENLAFAXINE HCL XR 75 MG CAP.ER.24H 150 MG PO (09:36)
[2023-08-26] MEDS: VITAMIN B COMPLEX CAPSULE 1 CAP PO (09:36)
[2023-08-26] MEDS: PANTOPRAZOLE SODIUM IV 40 MG VIAL IV PUSH (09:36)
[2023-08-26] MEDS: METOPROLOL SUCCINATE EXT REL 50 MG TABCR PO (09:36)
[2023-08-26] MEDS: EMPAGLIFLOZIN 10 MG TABLET PO (09:36)
[2023-08-26] MEDS: SACUBITRIL/VALSARTAN 97-103 MG TABLET 1 TAB PO ×2 (09:36→20:50)
[2023-08-26] MEDS: buPROPion HCL XL (24 HR) 150 MG TABCR PO (09:36)
[2023-08-26] MEDS: ONDANSETRON INJ 4 MG/2 ML VIAL IV PUSH ×2 (09:52→17:39)
--- NOTE | 2023-08-26 13:15 | PM.IMPN ---
Progress Note: A&P Assessment and Plan (1) UTI (urinary tract infection): Qualifiers: Hematuria presence: without hematuria Urinary tract infection type: site unspecified Qualified Code(s): N39.0 - Urinary tract infection, site not specified Code(s): N39.0 - Urinary tract infection, site not specified Status: Acute Assessment and Plan: As noted per urinalysis Likely secondary to diarrhea. CT without any acute signs of pyelonephritis or acute cystitis Continue Rocephin 1 g Q 24 hours Await urine culture Previous urine culture significant for growth Enterococcus in 2020. Continue IV fluids 08/26: Patient tolerating the rocephin well. Cultures without preliminary results at this time. Plan to await culture results which will likely be available tomorrow. Plan to deescalate abx pending those sensitivities. (2) Nausea vomiting and diarrhea: Code(s): R11.2 - Nausea with vomiting, unspecified; R19.7 - Diarrhea, unspecified Status: Acute Assessment and Plan: P.r.n. antiemetics Continue IV fluids Stool for culture and C diff ordered P.r.n. pain meds CT did not demonstrate any acute cause nausea vomiting or diarrhea. Low suspicion of any complication from lap band has she has never had any complications. Consider GI consult if no improvement in condition. 08/26: No vomiting, has had diarrheal output. Still nauseated intermittently. Symptoms are improving, question if 2/2 to acute gastro, although with two weeks of symptoms this is less likely. (3) Heart failure: Qualifiers: Heart failure chronicity: chronic Heart failure type: unspecified Qualified Code(s): I50.9 - Heart failure, unspecified Code(s): I50.9 - Heart failure, unspecified Status: Chronic Assessment and Plan: Chronic in nature Not in acute exacerbation Continue home medications of Jardiance, metoprolol, Entresto, spironolactone D/C IV fluids as soon as electrolyte status has improved to avoid fluid overload. 08/26: Euvolemic on exam. (4) Thickened endometrium: Code(s): R93.89 - Abnormal findings on diagnostic imaging of other specified body structures Status: Acute Assessment and Plan: As evidenced by CT scan. This is a coincidental finding. It is recommended the patient have follow-up as outpatient for possible endometrial biopsy due to the amount of thickening present. 08/26: As noted o/p f/u. (5) Glucosuria: Code(s): R81 - Glycosuria Status: Acute Assessment and Plan: Urinalysis shows 3+ glucose. Patient has history of impaired glucose Check hemoglobin A1c 08/26: A1c is now ordered for tomorrow. Plan Cont. current management awaiting a1c result tomorrow am. Urine cx and sensitivity to plan appropriate abx deescalation. Likely DC to home in the next 24-48 hours. Time Spent With Patient Time: >30 minutes. Subjective Date/time seen: 08/26/23 13:15 Interval history: 08/25: A 73-year-old female patient with past medical history of asthma, GERD, HFrEF with ECHO in 03/2022 w/EF of 40-45%, chronic kidney disease stage 3, depression, obstructive sleep apnea, status post gastric sleeve many years ago, and leakage of breast implant after falling on her left side in June resulting in left breast enlargement, pain and deformity, with previous breast implant on the right side rupturing in 2008 with no intervention performed to either as she is unable to afford surgery to repair them. She presented to the ER today with complaints of two weeks of upset stomach, the inability to keep down any solid foods and keeping only some liquids down, and watery diarrhea without any mucous, melena or hematochezia. She also has complaints of pain in her abdomen that is described as a cramping. She denies any recent known illnesses and she denies any recent abx. She does endorse that she has had urinary hesitancy for approximat
[2023-08-26] MEDS: SODIUM CHLORIDE 0.9% IV 1,000 ML 125 ML IV CONT (15:19)
[2023-08-26 15:51] LABS: Toxigenic C. Diff NEGATIVE (NEGATIVE)
[2023-08-26] MEDS: HYDROcodone/acetaminophen (*CRX) 5-325 MG TABLET 1 TAB PO (20:49)
[2023-08-26] MEDS: MAG HYDROX/AL HYDROX/SIMETH 30 ML UDC PO (20:49)
[2023-08-26] MEDS: traZODone HCL 50 MG TABLET PO (20:50)
[2023-08-27] VITALS (7 sets, daily range): BP systolic 110–144; BP diastolic 45–78; PULSE 61–74; RESP 13–18; TEMP 36.1–36.9; O2SAT 94–100
[2023-08-27] MEDS: SODIUM CHLORIDE 0.9% IV 1,000 ML 125 ML IV CONT ×2 (02:18→08:24)
--- NOTE | 2023-08-27 07:30 | PM.IMPN ---
Progress Note: A&P Assessment and Plan (1) UTI (urinary tract infection): Qualifiers: Hematuria presence: without hematuria Urinary tract infection type: site unspecified Qualified Code(s): N39.0 - Urinary tract infection, site not specified Code(s): N39.0 - Urinary tract infection, site not specified Status: Acute Assessment and Plan: As noted per urinalysis Likely secondary to diarrhea. CT without any acute signs of pyelonephritis or acute cystitis Continue Rocephin 1 g Q 24 hours Await urine culture Previous urine culture significant for growth Enterococcus in 2020. Continue IV fluids 08/26: Patient tolerating the rocephin well. Cultures without preliminary results at this time. Plan to await culture results which will likely be available tomorrow. Plan to deescalate abx pending those sensitivities. 08/27: urine culture was inconclusive. Plan to give IV rocephin today and start Augmentin tomorrow with EOT 08/30 (2) Nausea vomiting and diarrhea: Code(s): R11.2 - Nausea with vomiting, unspecified; R19.7 - Diarrhea, unspecified Status: Acute Assessment and Plan: P.r.n. antiemetics Continue IV fluids Stool for culture and C diff ordered P.r.n. pain meds CT did not demonstrate any acute cause nausea vomiting or diarrhea. Low suspicion of any complication from lap band has she has never had any complications. Consider GI consult if no improvement in condition. 08/26: No vomiting, has had diarrheal output. Still nauseated intermittently. Symptoms are improving, question if 2/2 to acute gastro, although with two weeks of symptoms this is less likely. 08/27: Tolerated breakfast without n/v, diarrhea. Still has some mid epigastric pain but it is greatly improved since admission. Mylanta seems to helps. Will see how she does with lunch. (3) Heart failure: Qualifiers: Heart failure type: unspecified Heart failure chronicity: chronic Qualified Code(s): I50.9 - Heart failure, unspecified Code(s): I50.9 - Heart failure, unspecified Status: Chronic Assessment and Plan: Chronic in nature Not in acute exacerbation Continue home medications of Jardiance, metoprolol, Entresto, spironolactone D/C IV fluids as soon as electrolyte status has improved to avoid fluid overload. 08/26: Euvolemic on exam. (4) Thickened endometrium: Code(s): R93.89 - Abnormal findings on diagnostic imaging of other specified body structures Status: Acute Assessment and Plan: As evidenced by CT scan. This is a coincidental finding. It is recommended the patient have follow-up as outpatient for possible endometrial biopsy due to the amount of thickening present. 08/26: As noted o/p f/u. 08/27: UPdated d/c instructions so this is not missed. (5) Glucosuria: Code(s): R81 - Glycosuria Status: Acute Assessment and Plan: Urinalysis shows 3+ glucose. Patient has history of impaired glucose Check hemoglobin A1c 08/26: A1c is now ordered for tomorrow. 08/27: A1c is 4.9%. Plan Likely DC to home in the next 24-48 hours. Subjective Date/time seen: 08/27/23 07:30 Interval history: HPI obtained from the chart, A 73-year-old female patient with past medical history of asthma, GERD, HFrEF with ECHO in 03/2022 w/EF of 40-45%, chronic kidney disease stage 3, depression, obstructive sleep apnea, status post gastric sleeve many years ago, and leakage of breast implant after falling on her left side in June resulting in left breast enlargement, pain and deformity, with previous breast implant on the right side rupturing in 2008 with no intervention performed to either as she is unable to afford surgery to repair them. She presented to the ER today with complaints of two weeks of upset stomach, the inability to keep down any solid foods and keeping only some liquids down, and watery diarrhea without any mucous, melena
[2023-08-27 07:36] LABS: Hemoglobin A1C 4.9 % (<5.7)
[2023-08-27] MEDS: buPROPion HCL XL (24 HR) 150 MG TABCR PO (08:18)
[2023-08-27] MEDS: VENLAFAXINE HCL XR 75 MG CAP.ER.24H 150 MG PO (08:18)
[2023-08-27] MEDS: hydrALAZINE HCL 50 MG TABLET PO ×3 (08:18→16:29)
[2023-08-27] MEDS: oxyBUTYnin CHLORIDE XL 5 MG TAB.ER.24 10 MG PO (08:18)
[2023-08-27] MEDS: METOPROLOL SUCCINATE EXT REL 50 MG TABCR PO (08:18)
[2023-08-27] MEDS: SACUBITRIL/VALSARTAN 97-103 MG TABLET 1 TAB PO ×2 (08:18→20:59)
[2023-08-27] MEDS: PANTOPRAZOLE SODIUM IV 40 MG VIAL IV PUSH (08:21)
[2023-08-27] MEDS: EMPAGLIFLOZIN 10 MG TABLET PO (08:21)
[2023-08-27] MEDS: MULTIVITAMINS THERAPEUTIC TAB (*BKC) 1 TABLET PO (08:21)
[2023-08-27] MEDS: VITAMIN B COMPLEX CAPSULE 1 CAP PO (08:21)
[2023-08-27] MEDS: SPIRONOLACTONE 25 MG TABLET PO (08:21)
[2023-08-27] MEDS: traZODone HCL 50 MG TABLET PO (20:59)
[2023-08-28] VITALS: BP 100/48; PULSE 57; RESP 14; TEMP 36.4; O2SAT 94
[2023-08-28 04:00] VITALS: BP 119/54; PULSE 75; RESP 14; TEMP 36.1; O2SAT 98
--- NOTE | 2023-08-28 07:31 | PM.IMPN ---
Progress Note: A&P Assessment and Plan (1) UTI (urinary tract infection): Qualifiers: Hematuria presence: without hematuria Urinary tract infection type: site unspecified Qualified Code(s): N39.0 - Urinary tract infection, site not specified Code(s): N39.0 - Urinary tract infection, site not specified Status: Acute Assessment and Plan: As noted per urinalysis Likely secondary to diarrhea. CT without any acute signs of pyelonephritis or acute cystitis Continue Rocephin 1 g Q 24 hours Await urine culture Previous urine culture significant for growth Enterococcus in 2020. Continue IV fluids 08/26: Patient tolerating the rocephin well. Cultures without preliminary results at this time. Plan to await culture results which will likely be available tomorrow. Plan to deescalate abx pending those sensitivities. 08/27: urine culture was inconclusive. Plan to give IV rocephin today and start Augmentin tomorrow with EOT 08/30 08/28: D/c Augmentin. GI recommended starting cipro and flagyl for possible infectious diarrhea. Cipro should cover UTI. C-diff was negative. (2) Nausea vomiting and diarrhea: Code(s): R11.2 - Nausea with vomiting, unspecified; R19.7 - Diarrhea, unspecified Status: Acute Assessment and Plan: P.r.n. antiemetics Continue IV fluids Stool for culture and C diff ordered P.r.n. pain meds CT did not demonstrate any acute cause nausea vomiting or diarrhea. Low suspicion of any complication from lap band has she has never had any complications. Consider GI consult if no improvement in condition. 08/26: No vomiting, has had diarrheal output. Still nauseated intermittently. Symptoms are improving, question if 2/2 to acute gastro, although with two weeks of symptoms this is less likely. 08/27: Tolerated breakfast without n/v, diarrhea. Still has some mid epigastric pain but it is greatly improved since admission. Mylanta seems to helps. Will see how she does with lunch. 08/28: Increased diarrhea today. Starting on antibiotics. Cannot give Imodium at this time due to possible infection. (3) Heart failure: Qualifiers: Heart failure chronicity: chronic Heart failure type: unspecified Qualified Code(s): I50.9 - Heart failure, unspecified Code(s): I50.9 - Heart failure, unspecified Status: Chronic Assessment and Plan: Chronic in nature Not in acute exacerbation Continue home medications of Jardiance, metoprolol, Entresto, spironolactone D/C IV fluids as soon as electrolyte status has improved to avoid fluid overload. 08/26: Euvolemic on exam. 08/28: Fluids d/c'd (4) Thickened endometrium: Code(s): R93.89 - Abnormal findings on diagnostic imaging of other specified body structures Status: Acute Assessment and Plan: As evidenced by CT scan. This is a coincidental finding. It is recommended the patient have follow-up as outpatient for possible endometrial biopsy due to the amount of thickening present. 08/26: As noted o/p f/u. 08/27: UPdated d/c instructions so this is not missed. (5) Glucosuria: Code(s): R81 - Glycosuria Status: Acute Assessment and Plan: Urinalysis shows 3+ glucose. Patient has history of impaired glucose Check hemoglobin A1c 08/26: A1c is now ordered for tomorrow. 08/27: A1c is 4.9%. Subjective Date/time seen: 08/28/23 07:31 Interval history: HPI obtained from the chart, A 73-year-old female patient with past medical history of asthma, GERD, HFrEF with ECHO in 03/2022 w/EF of 40-45%, chronic kidney disease stage 3, depression, obstructive sleep apnea, status post gastric sleeve many years ago, and leakage of breast implant after falling on her left side in June resulting in left breast enlargement, pain and deformity, with previous breast implant on the right side rupturing in 2008 with no intervention performed to either as she is unable to af
[2023-08-28 08:18] LABS: Hematocrit 42.3 % (37.0-47.0); Hemoglobin 13.3 g/dL (12.0-15.0); Mean Corpuscular HGB Conc 31.4 g/dl (32-36); Mean Corpuscular Hemoglobin 31.8 pg (26-34); Mean Corpuscular Volume 101.2 fl (80-100); Mean Platelet Volume 9.6 fl (7.4-10.4); Platelet Count Result 166 k/mm3 (150-375); Red Blood Count 4.18 M/mm3 (4.2-5.4); White Blood Count 5.3 K/mm3 (4.5-10.0)
[2023-08-28 08:19] LABS: Alanine Aminotransferase 25 U/L (6-35); Alkaline Phosphatase 79 U/L (38-126); Anion Gap 6 mmol/L (8-16); Aspartate Amino Transferase 34 U/L (14-36); Bilirubin,Total 0.4 mg/dL (0.2-1.3); Blood Urea Nitrogen 11 mg/dL (7-17); Calcium 8.9 mg/dL (8.4-10.2); Carbon Dioxide 25 mmol/L (22-30); Chloride 111 mmol/L (98-107); Estimated CRCL calculation 43 ml/min; Estimated Glomerular Filt Rate 49; Glucose 98 mg/dL (65-110); Potassium 3.7 mmol/L (3.4-5.0); Sodium 142 mmol/L (137-145)
[2023-08-28] MEDS: VITAMIN B COMPLEX CAPSULE 1 CAP PO (08:36)
[2023-08-28] MEDS: oxyBUTYnin CHLORIDE XL 5 MG TAB.ER.24 10 MG PO (08:36)
[2023-08-28] MEDS: SACUBITRIL/VALSARTAN 97-103 MG TABLET 1 TAB PO ×2 (08:36→20:52)
[2023-08-28] MEDS: EMPAGLIFLOZIN 10 MG TABLET PO (08:36)
[2023-08-28] MEDS: METOPROLOL SUCCINATE EXT REL 50 MG TABCR PO (08:36)
[2023-08-28] MEDS: MULTIVITAMINS THERAPEUTIC TAB (*BKC) 1 TABLET PO (08:36)
[2023-08-28] MEDS: AMOXICILLIN/CLAVULANATE K 875-125 MG TAB 1 TABLET PO (08:36)
[2023-08-28] MEDS: SPIRONOLACTONE 25 MG TABLET PO (08:36)
[2023-08-28] MEDS: PANTOPRAZOLE 40 MG TABLET PO (08:36)
[2023-08-28] MEDS: hydrALAZINE HCL 50 MG TABLET PO ×3 (08:36→17:30)
[2023-08-28] MEDS: buPROPion HCL XL (24 HR) 150 MG TABCR PO (08:36)
[2023-08-28] MEDS: VENLAFAXINE HCL XR 75 MG CAP.ER.24H 150 MG PO (08:36)
[2023-08-28] MEDS: ONDANSETRON INJ 4 MG/2 ML VIAL IV PUSH (10:13)
--- NOTE | 2023-08-28 10:37 | WPDGICN ---
Assessment and Plan Assessment and plan (1) Nausea vomiting and diarrhea: Code(s): R11.2 - Nausea with vomiting, unspecified; R19.7 - Diarrhea, unspecified Status: Acute Assessment and Plan: Nausea vomiting diarrhea or somewhat nonspecific. Because of 2 week course of diarrhea she may have an infectious process. Plan to obtain stool cultures. Empiric antibiotics use with Cipro may benefit both urinary tract infection and potential intestinal infection. Intestinal infection would be most likely etiology for diarrhea that is relatively brief. She did have a good day yesterday after starting antibiotics Tuesday. Because antibiotics were started for the bladder infection this may limit usefulness of stool cultures. (2) UTI (urinary tract infection): Qualifiers: Hematuria presence: without hematuria Urinary tract infection type: site unspecified Qualified Code(s): N39.0 - Urinary tract infection, site not specified Code(s): N39.0 - Urinary tract infection, site not specified Status: Acute Assessment and Plan: Urinary tract infection itself may contribute to her diarrhea as well as nausea vomiting. Agree with broad-spectrum antibiotics. (3) Breast implant rupture: Qualifiers: Encounter type: initial encounter Qualified Code(s): T85.43XA - Leakage of breast prosthesis and implant, initial encounter Code(s): T85.43XA - Leakage of breast prosthesis and implant, initial encounter Status: Acute (4) Thickened endometrium: Code(s): R93.89 - Abnormal findings on diagnostic imaging of other specified body structures Status: Acute Assessment and Plan: Gynecologic follow-up of abnormal CT scan with endometrial thickening is advised. GI Consult Note Consult date/time: 08/28/23 10:37 Reason for consult: Diarrhea, nausea vomiting in context of urinary tract infection HPI: Rosita Flores is a 73 year old female I am asked to see at the request of the hospitalist service because of diarrhea, patient reports she has had diarrhea for approximately 2 weeks. Watery with chunks of stool. She denies any blood in her stools. She denies any fever. She apparently went to the emergency room several days ago was found to have a urinary tract infection. Patient now on antibiotic coverage. This was started on Tuesday. She states yesterday on Tuesday she had no stool whatsoever. There was no associated nausea or vomiting. Today she once again had a loose watery stool. Patient denies any recent travel. She has no other ill pets her family at home. She has had no recent change in medications. Past medical history is significant for ruptured breast implants. No stool cultures are available on chart for review. Review of Systems Review of Systems: Review of systems noncontributory. [facility] Past Medical History Medical History (Updated 08/25/23 @ 22:18 by KAR Anders) Asthma Chronic GERD Chronic kidney disease, stage 3 (moderate) Heart failure Hypertensive chronic kidney disease with stage 1 through stage 4 chronic kidney disease, or unspecified chronic kidney disease Impaired fasting glucose Major depressive disorder JONELLE (obstructive sleep apnea) Surgical History Surgical History History of gastric surgery s/p gastric sleeve Family History Family History Mother Family history of diabetes mellitus in first degree relative Father Family history of coronary artery disease Social History Social History Smoking status: Never smoker Second hand tobacco smoke exposure: Yes Alcohol intake: never Substance use: never Substance use type: does not use Lack of Transportation: No Lack of Food: Never True Current Housing: I Have Claudio
[2023-08-28] MEDS: MAG HYDROX/AL HYDROX/SIMETH 30 ML UDC PO (10:57)
[2023-08-28 12:22] VITALS: BP 133/75; PULSE 71; RESP 18; TEMP 36.8; O2SAT 99
[2023-08-28] MEDS: metroNIDAZOLE 250 MG TABLET PO ×3 (12:40→20:52)
[2023-08-28 12:43] LABS: Toxigenic C. Diff NEGATIVE (NEGATIVE)
[2023-08-28 14:00] VITALS: BP 123/70; PULSE 76; RESP 20; TEMP 36.7; O2SAT 98
[2023-08-28] MEDS: traZODone HCL 50 MG TABLET PO (20:52)
[2023-08-28] MEDS: CIPROFLOXACIN 500 MG TAB PO (20:52)
[2023-08-28 21:55] VITALS: BP 127/72; PULSE 72; RESP 18; TEMP 36.8; O2SAT 98
[2023-08-29 06:00] VITALS: BP 131/78; PULSE 65; RESP 18; TEMP 36.5; O2SAT 97
--- NOTE | 2023-08-29 07:08 | WPDGIPROGNO ---
Progress Note: A&P Assessment and Plan (1) Diarrhea: Code(s): R19.7 - Diarrhea, unspecified Status: Acute Assessment and Plan: Patient reports continued loose watery stools. She no longer has nausea and vomiting. Patient now on empiric antibiotics for possible GI infection. Stool cultures in progress. Will try Imodium to improve symptoms. If diarrhea persist outpatient colonoscopy can be arranged electively. (2) Thickened endometrium: Code(s): R93.89 - Abnormal findings on diagnostic imaging of other specified body structures Status: Acute Assessment and Plan: Thick endometrium on CT scan is identified. Gynecologic follow-up suggested. (3) Breast implant rupture: Qualifiers: Encounter type: initial encounter Qualified Code(s): T85.43XA - Leakage of breast prosthesis and implant, initial encounter Code(s): T85.43XA - Leakage of breast prosthesis and implant, initial encounter Status: Acute (4) UTI (urinary tract infection): Qualifiers: Hematuria presence: without hematuria Urinary tract infection type: site unspecified Qualified Code(s): N39.0 - Urinary tract infection, site not specified Code(s): N39.0 - Urinary tract infection, site not specified Status: Acute Assessment and Plan: Patient found to have UTI on admission. Likely this contributes to some of her symptoms. (5) History of gastric surgery: Code(s): Z98.890 - Other specified postprocedural states Status: Acute Assessment and Plan: Vomiting on admission may be related to prior gastric surgery. Frequent small meals suggested. Subjective Date/time seen: 08/29/23 07:08 Interval history: Patient alert, and comfortable this morning. Still had diarrhea with 1 bowel movement this morning. Is any significant abdominal pain. Stool cultures now in progress. No results yet. Review of Systems Review of Systems: Review of systems is noncontributory. Exam Narrative: Physical exam reveals patient to be alert. Vital signs stable. HEENT exam is unremarkable. Patient is anicteric. Lungs are clear to auscultation and to percussion. Heart without murmur or extra sounds. Abdomen bowel sounds are present. Soft nontender with no organomegaly. Objective Data Vital Signs Vital Signs: Vital Signs - 24 hr 08/28/23 12:22 08/28/23 14:00 08/28/23 20:00 Temperature 98.3 F 98.1 F Pulse Rate 71 76 Respiratory Rate 18 20 Blood Pressure 133/75 123/70 Pulse Oximetry 99 98 Oxygen Delivery Room Air 08/28/23 21:55 08/29/23 06:00 Temperature 98.2 F 97.7 F Pulse Rate 72 65 Respiratory Rate 18 18 Blood Pressure 127/72 131/78 Pulse Oximetry 98 97 Oxygen Delivery Intake/Output Intake/Output: Intake & Output 08/26/23 08/27/23 08/28/23 08/29/23 23:59 23:59 23:59 23:59 Intake Total 2900 2100 980 300 Balance 2900 2100 980 300 Meds/Results Medications: Active Medications Generic Name Dose Route Start Last Admin Trade Name Freq PRN Reason Stop Dose Admin Acetaminophen 650 mg 08/25/23 22:04 Acetaminophen 325 Mg Tablet PO Q4H PRN Mild Pain (1-3) or Fever Hydrocodone Bitart/Acetaminophen 1 tab 08/25/23 22:04 08/26/23 20:49 Hydrocodone/Acetaminophen (*Crx) 5-325 Mg Tablet PO 1 tab Q4H PRN Administration Moderate Pain (4-6) Al Hydrox/Mg Hydrox/Simethicone 30 ml 08/25/23 22:04 08/28/23 10:57 Mag Hydrox/Al Hydrox/Simeth 30 Ml Udc PO 30 ml QID PRN Administration Dyspepsia Bupropion HCl 150 mg 08/26/23 09:00 08/28/23 08:36 Bupropion Hcl Xl (24 Hr) 150 Mg Tabcr PO 150 mg QAM SEAN Administration Ciprofloxacin 500 mg 08/28/23 21:00 08/28/23 20:52 Ciprofloxacin 500 Mg Tab PO 500 mg Q12HR SEAN Administration Empagliflozin 10 mg 08/26/23 09:00 08/28/23 08:36 Empagliflozin 10 Mg Tablet PO 10 mg DAILY SEAN Administration Hydralazine HCl
[2023-08-29 07:18] LABS: Basophils Percent Auto 0.4 % (0.2-1.2); Eosinophils Absolute Auto 0.1 K/mm3 (0-0.3); Eosinophils Percent Auto 0.9 % (0-4.4); Hematocrit 41.1 % (37.0-47.0); Immature Granulocyte Absolute 0.02 K/mm3 (0.00-0.031); Immature Granulocyte Percent A 0.4 % (0-0.5); Lymphocytes Absolute Auto 0.97 K/mm3 (0.9-3.2); Lymphocytes Percent Auto 17.4 % (18.3-44.2); Mean Corpuscular HGB Conc 31.6 g/dl (32-36); Mean Corpuscular Hemoglobin 32.6 pg (26-34); Mean Platelet Volume 9.6 fl (7.4-10.4); Monocytes Absolute Auto 0.5 K/mm3 (0.1-0.6); Monocytes Percent Auto 8.8 % (2.6-8.5); Neutrophils Percent Auto 72.1 % (45.5-73.1); Platelet Count Result 160 k/mm3 (150-375); Red Blood Count 3.99 M/mm3 (4.2-5.4); Red Cell Distribution Width 13.1 % (11.5-14.5); White Blood Count 5.6 K/mm3 (4.5-10.0)
[2023-08-29 07:27] LABS: Alanine Aminotransferase 27 U/L (6-35); Albumin Level 3.2 g/dL (3.5-5.1); Alkaline Phosphatase 79 U/L (38-126); Anion Gap 9 mmol/L (8-16); Aspartate Amino Transferase 34 U/L (14-36); Bilirubin,Total 0.4 mg/dL (0.2-1.3); Blood Urea Nitrogen 10 mg/dL (7-17); Calcium 9.1 mg/dL (8.4-10.2); Carbon Dioxide 25 mmol/L (22-30); Chloride 107 mmol/L (98-107); Estimated CRCL calculation 43 ml/min; Estimated Glomerular Filt Rate 49; Glucose 103 mg/dL (65-110); Magnesium 1.8 mg/dL (1.6-2.3); Potassium 3.6 mmol/L (3.4-5.0); Sodium 141 mmol/L (137-145)
[2023-08-29 08:00] VITALS: O2SAT 97
--- NOTE | 2023-08-29 08:40 | PM.IMPN ---
Progress Note: A&P Assessment and Plan (1) UTI (urinary tract infection): Qualifiers: Hematuria presence: without hematuria Urinary tract infection type: site unspecified Qualified Code(s): N39.0 - Urinary tract infection, site not specified Code(s): N39.0 - Urinary tract infection, site not specified Status: Acute Assessment and Plan: As noted per urinalysis Likely secondary to diarrhea. CT without any acute signs of pyelonephritis or acute cystitis Continue Rocephin 1 g Q 24 hours Await urine culture Previous urine culture significant for growth Enterococcus in 2020. Continue IV fluids 08/26: Patient tolerating the rocephin well. Cultures without preliminary results at this time. Plan to await culture results which will likely be available tomorrow. Plan to deescalate abx pending those sensitivities. 08/27: urine culture was inconclusive. Plan to give IV rocephin today and start Augmentin tomorrow with EOT 08/30 08/28: D/c Augmentin. GI recommended starting cipro and flagyl for possible infectious diarrhea. Cipro should cover UTI. C-diff was negative. 08/29: GI okay with starting imodium. Will see how she does today with imodium and second day of antibiotics. Hopefully she will have less stools today and can d/c tomorrow. (2) Nausea vomiting and diarrhea: Code(s): R11.2 - Nausea with vomiting, unspecified; R19.7 - Diarrhea, unspecified Status: Acute Assessment and Plan: P.r.n. antiemetics Continue IV fluids Stool for culture and C diff ordered P.r.n. pain meds CT did not demonstrate any acute cause nausea vomiting or diarrhea. Low suspicion of any complication from lap band has she has never had any complications. Consider GI consult if no improvement in condition. 08/26: No vomiting, has had diarrheal output. Still nauseated intermittently. Symptoms are improving, question if 2/2 to acute gastro, although with two weeks of symptoms this is less likely. 08/27: Tolerated breakfast without n/v, diarrhea. Still has some mid epigastric pain but it is greatly improved since admission. Mylanta seems to helps. Will see how she does with lunch. 08/28: Increased diarrhea today. Starting on antibiotics. Cannot give Imodium at this time due to possible infection. 08/29: Remains afebrile and WBC stable. GI is okay with imodium, will order. (3) Heart failure: Qualifiers: Heart failure chronicity: chronic Heart failure type: unspecified Qualified Code(s): I50.9 - Heart failure, unspecified Code(s): I50.9 - Heart failure, unspecified Status: Chronic Assessment and Plan: Chronic in nature Not in acute exacerbation Continue home medications of Jardiance, metoprolol, Entresto, spironolactone D/C IV fluids as soon as electrolyte status has improved to avoid fluid overload. 08/26: Euvolemic on exam. 08/28: Fluids d/c'd (4) Thickened endometrium: Code(s): R93.89 - Abnormal findings on diagnostic imaging of other specified body structures Status: Acute Assessment and Plan: As evidenced by CT scan. This is a coincidental finding. It is recommended the patient have follow-up as outpatient for possible endometrial biopsy due to the amount of thickening present. 08/26: As noted o/p f/u. 08/27: UPdated d/c instructions so this is not missed. (5) Glucosuria: Code(s): R81 - Glycosuria Status: Acute Assessment and Plan: Urinalysis shows 3+ glucose. Patient has history of impaired glucose Check hemoglobin A1c 08/26: A1c is now ordered for tomorrow. 08/27: A1c is 4.9%. Plan Feeding:low residue, low fiber Analgesia:tylenol Thromboembolic prophylaxis: lovenox Ulcer prophylaxis: PPI Glycemic control: n/a Bowel regimen: n/a Lines: PIV Antibiotics:cipro/flagyl Disposition: home when able Subjective Date/time seen: 08/29/23 08:40 Interval history: HPI obtained from the chart,
[2023-08-29] MEDS: CIPROFLOXACIN 500 MG TAB PO ×2 (09:00→20:12)
[2023-08-29] MEDS: metroNIDAZOLE 250 MG TABLET PO ×4 (09:00→20:12)
[2023-08-29] MEDS: MULTIVITAMINS THERAPEUTIC TAB (*BKC) 1 TABLET PO (09:00)
[2023-08-29] MEDS: oxyBUTYnin CHLORIDE XL 5 MG TAB.ER.24 10 MG PO (09:00)
[2023-08-29] MEDS: EMPAGLIFLOZIN 10 MG TABLET PO (09:00)
[2023-08-29] MEDS: PANTOPRAZOLE 40 MG TABLET PO (09:00)
[2023-08-29 09:01] VITALS: PULSE 88
[2023-08-29] MEDS: METOPROLOL SUCCINATE EXT REL 50 MG TABCR PO (09:01)
[2023-08-29] MEDS: buPROPion HCL XL (24 HR) 150 MG TABCR PO (09:01)
[2023-08-29] MEDS: SACUBITRIL/VALSARTAN 97-103 MG TABLET 1 TAB PO ×2 (09:01→20:12)
[2023-08-29] MEDS: hydrALAZINE HCL 50 MG TABLET PO ×3 (09:08→16:24)
[2023-08-29] MEDS: SPIRONOLACTONE 25 MG TABLET PO (09:08)
[2023-08-29] MEDS: VENLAFAXINE HCL XR 75 MG CAP.ER.24H 150 MG PO (09:08)
[2023-08-29] MEDS: VITAMIN B COMPLEX CAPSULE 1 CAP PO (09:08)
[2023-08-29] MEDS: ENOXAPARIN 40 MG/0.4 ML SYRINGE SUB-Q (09:13)
[2023-08-29] MEDS: DIPHENOXYLATE/ATROPINE (*CRX) 2.5 MG TABLET 1 TABLET PO (13:23)
--- NOTE | 2023-08-29 13:24 | ECG_ITS ---
Measurements Intervals [place] Rate: 60 P: 54 CO: 258 QRS: -4 QRSD: 80 T: 31 QT: 407 QTc: 408 Interpretive Statements SINUS RHYTHM WITH FIRST DEGREE AV BLOCK POSSIBLE LEFT ATRIAL ENLARGEMENT DELAYED PRECORDIAL R/S TRANSITION LOW VOLTAGE IN PRECORDIAL LEADS BORDERLINE T WAVE ABNORMALITY- ANTEROLAT/INF LEADS BASELINE ARTIFACT- II, III, AVF BORDERLINE ECG COMPARED TO ECG 03/22/2022 09:56:12 NO SIGNIFICANT CHANGES Electronically Signed On 08-29-2023 14:07:25 [employer] MAINTENANCE WORKER by Joey Oswald D.O.
[2023-08-29 14:00] VITALS: BP 122/68; PULSE 62; RESP 18; TEMP 36.3; O2SAT 99
[2023-08-29] MEDS: ACETAMINOPHEN 325 MG TABLET 650 MG PO (16:24)
[2023-08-29] MEDS: MAG HYDROX/AL HYDROX/SIMETH 30 ML UDC PO (20:12)
[2023-08-29] MEDS: traZODone HCL 50 MG TABLET PO (20:17)
[2023-08-29 22:00] VITALS: BP 110/71; PULSE 66; RESP 18; TEMP 36.8; O2SAT 95
[2023-08-30 06:00] VITALS: BP 90/63; PULSE 74; RESP 16; TEMP 36.8; O2SAT 98
[2023-08-30 06:57] LABS: Potassium 3.2 mmol/L (3.4-5.0)
[2023-08-30 08:00] VITALS: PULSE 74; RESP 16; O2SAT 98
[2023-08-30 08:15] LABS: Hematocrit 40.7 % (37.0-47.0); Hemoglobin 12.9 g/dL (12.0-15.0); Mean Corpuscular HGB Conc 31.7 g/dl (32-36); Mean Corpuscular Hemoglobin 32.1 pg (26-34); Mean Corpuscular Volume 101.2 fl (80-100); Mean Platelet Volume 10.4 fl (7.4-10.4); Platelet Count Result 170 k/mm3 (150-375); Red Blood Count 4.02 M/mm3 (4.2-5.4); White Blood Count 4.7 K/mm3 (4.5-10.0)
[2023-08-30 08:33] LABS: Anion Gap 8 mmol/L (8-16); Blood Urea Nitrogen 10 mg/dL (7-17); Carbon Dioxide 22 mmol/L (22-30); Chloride 110 mmol/L (98-107); Estimated CRCL calculation 47 ml/min; Estimated Glomerular Filt Rate 54; Glucose 109 mg/dL (65-110); Magnesium 1.8 mg/dL (1.6-2.3); Potassium 3.2 mmol/L (3.4-5.0); Sodium 140 mmol/L (137-145)
[2023-08-30] MEDS: LOPERAMIDE HCL 2 MG CAPSULE PO (08:44)
[2023-08-30] MEDS: CIPROFLOXACIN 500 MG TAB PO (09:00)
[2023-08-30] MEDS: buPROPion HCL XL (24 HR) 150 MG TABCR PO (09:00)
[2023-08-30] MEDS: VENLAFAXINE HCL XR 75 MG CAP.ER.24H 150 MG PO (09:00)
[2023-08-30] MEDS: SACUBITRIL/VALSARTAN 97-103 MG TABLET 1 TAB PO (09:00)
[2023-08-30] MEDS: MULTIVITAMINS THERAPEUTIC TAB (*BKC) 1 TABLET PO (09:00)
[2023-08-30] MEDS: MAGNESIUM OXIDE 400 MG TABLET PO (09:00)
[2023-08-30] MEDS: SPIRONOLACTONE 25 MG TABLET PO (09:00)
[2023-08-30] MEDS: METOPROLOL SUCCINATE EXT REL 50 MG TABCR PO (09:01)
[2023-08-30] MEDS: VITAMIN B COMPLEX CAPSULE 1 CAP PO (09:01)
[2023-08-30] MEDS: hydrALAZINE HCL 50 MG TABLET PO (09:01)
[2023-08-30] MEDS: metroNIDAZOLE 250 MG TABLET PO (09:01)
[2023-08-30] MEDS: PANTOPRAZOLE 40 MG TABLET PO (09:01)
[2023-08-30] MEDS: POTASSIUM CHLORIDE 20 MEQ ER TABLET 80 MEQ PO (09:01)
[2023-08-30] MEDS: EMPAGLIFLOZIN 10 MG TABLET PO (09:01)
[2023-08-30] MEDS: oxyBUTYnin CHLORIDE XL 5 MG TAB.ER.24 10 MG PO (09:02)
[2023-08-30] MEDS: ENOXAPARIN 40 MG/0.4 ML SYRINGE SUB-Q (09:02)
[2023-08-30 09:08] VITALS: BP 134/67
--- NOTE | 2023-08-30 10:23 | PM.DS ---
DS: Admitting Diagnosis Discharge Date 08/30 Admitting Diagnosis diarrhea DS: Discharge Diagnosis Discharge Diagnosis (1) UTI (urinary tract infection): Qualifiers: Hematuria presence: without hematuria Urinary tract infection type: site unspecified Qualified Code(s): N39.0 - Urinary tract infection, site not specified Code(s): N39.0 - Urinary tract infection, site not specified Status: Acute Assessment and Plan: As noted per urinalysis Likely secondary to diarrhea. CT without any acute signs of pyelonephritis or acute cystitis Continue Rocephin 1 g Q 24 hours Await urine culture Previous urine culture significant for growth Enterococcus in 2020. Continue IV fluids 08/26: Patient tolerating the rocephin well. Cultures without preliminary results at this time. Plan to await culture results which will likely be available tomorrow. Plan to deescalate abx pending those sensitivities. 08/27: urine culture was inconclusive. Plan to give IV rocephin today and start Augmentin tomorrow with EOT 08/30 08/28: D/c Augmentin. GI recommended starting cipro and flagyl for possible infectious diarrhea. Cipro should cover UTI. C-diff was negative. 08/29: GI okay with starting imodium. Will see how she does today with imodium and second day of antibiotics. Hopefully she will have less stools today and can d/c tomorrow. (2) Nausea vomiting and diarrhea: Code(s): R11.2 - Nausea with vomiting, unspecified; R19.7 - Diarrhea, unspecified Status: Acute Assessment and Plan: P.r.n. antiemetics Continue IV fluids Stool for culture and C diff ordered P.r.n. pain meds CT did not demonstrate any acute cause nausea vomiting or diarrhea. Low suspicion of any complication from lap band has she has never had any complications. Consider GI consult if no improvement in condition. 08/26: No vomiting, has had diarrheal output. Still nauseated intermittently. Symptoms are improving, question if 2/2 to acute gastro, although with two weeks of symptoms this is less likely. 08/27: Tolerated breakfast without n/v, diarrhea. Still has some mid epigastric pain but it is greatly improved since admission. Mylanta seems to helps. Will see how she does with lunch. 08/28: Increased diarrhea today. Starting on antibiotics. Cannot give Imodium at this time due to possible infection. 08/29: Remains afebrile and WBC stable. GI is okay with imodium, will order. (3) Heart failure: Qualifiers: Heart failure type: unspecified Heart failure chronicity: chronic Qualified Code(s): I50.9 - Heart failure, unspecified Code(s): I50.9 - Heart failure, unspecified Status: Chronic Assessment and Plan: Chronic in nature Not in acute exacerbation Continue home medications of Jardiance, metoprolol, Entresto, spironolactone D/C IV fluids as soon as electrolyte status has improved to avoid fluid overload. 08/26: Euvolemic on exam. 08/28: Fluids d/c'd (4) Thickened endometrium: Code(s): R93.89 - Abnormal findings on diagnostic imaging of other specified body structures Status: Acute Assessment and Plan: As evidenced by CT scan. This is a coincidental finding. It is recommended the patient have follow-up as outpatient for possible endometrial biopsy due to the amount of thickening present. 08/26: As noted o/p f/u. 08/27: UPdated d/c instructions so this is not missed. (5) Glucosuria: Code(s): R81 - Glycosuria Status: Acute Assessment and Plan: Urinalysis shows 3+ glucose. Patient has history of impaired glucose Check hemoglobin A1c 08/26: A1c is now ordered for tomorrow. 08/27: A1c is 4.9%. Plan Feeding:low residue, low fiber Analgesia:tylenol Thromboembolic prophylaxis: lovenox Ulcer prophylaxis: PPI Glycemic control: n/a Bowel regimen: n/a Lines: PIV Antibiotics:cipro/flagyl Disposition: home when able DS: Summary
[2023-08-30] MEDS: LOPERAMIDE HCL 2 MG CAPSULE 4 MG PO (11:30)
[2023-08-30] MEDS: DICYCLOMINE HCL 10 MG CAPSULE 20 MG PO (11:30)
== END 2023-08-30 12:15 | disposition home or self-care (01) ==
LOC: ANHED 11:44 → ANH3MEDSUR 15:34
PROVIDERS: Internal Medicine Gastroenterology; Nurse Practitioner Acute Care; Nurse Practitioner Adult Health; Nurse Practitioner Family; Student in an Organized Health Care Education/Training Program; Admitting Provider General Practice; Emergency Provider Physician Assistant; PCP Family Medicine; Visit Provider Internal Medicine
DX: N39.0 Urinary tract infection, site not specified (principal); R11.2 Nausea with vomiting, unspecified; I13.0 Hypertensive heart and chronic kidney disease with heart failure and stage 1 through stage 4 chronic kidney disease, or unspecified chronic kidney disease; I50.20 Unspecified systolic (congestive) heart failure; N18.30 Chronic kidney disease, stage 3 unspecified; R93.89 Abnormal findings on diagnostic imaging of other specified body structures; R81 Glycosuria; J45.909 Unspecified asthma, uncomplicated; K21.9 Gastro-esophageal reflux disease without esophagitis; K44.9 Diaphragmatic hernia without obstruction or gangrene; M47.816 Spondylosis without myelopathy or radiculopathy, lumbar region; M47.814 Spondylosis without myelopathy or radiculopathy, thoracic region; I70.0 Atherosclerosis of aorta; F32.9 Major depressive disorder, single episode, unspecified; G47.33 Obstructive sleep apnea (adult) (pediatric); Z98.84 Bariatric surgery status; T85.43XA Leakage of breast prosthesis and implant, initial encounter; W19.XXXA Unspecified fall, initial encounter; Z79.84 Long term (current) use of oral hypoglycemic drugs; Z79.899 Other long term (current) drug therapy
CPT/HCPCS: 36415; 70450; 74177; 80048; 80053; 81001; 83036; 83690; 83735; 84132; 85025; 85027; 87045; 87086; 87088; 87427; 87449; 87493; 89055; 93005; 96361; 96365; 96375; 96376; 99285; A9270; C9113; G0378; J0696; J1650; J2405; J7030; Q9967

== ENCOUNTER 2023-09-07 13:42 | Outpatient (CLI) | payer MEDICARE, MEDICAID, SELFPAY ==
--- NOTE | ~2023-09-07 | MR_ITS ---
MR breast BI wo/w con 09/09/2023 08:58 DISTRICT CUSTOMS DIRECTOR INDICATION: Breast pain and deformity. Implant rupture. TECHNIQUE: MRI of the breasts perform using standard protocol pre-and post IV contrast with the follo wing sequences: Axial T2 STIR, axial T1, axial vibrant T1 with fat suppression precontrast and multip hasic postcontrast. COMPARISON: FINDINGS: There are no abnormalities on the precontrast sequences. There is mild background parenchym al enhancement. There is right extracapsular implant rupture with collapse of the implant. There are small intramammary lymph nodes of the right breast posteriorly. LEFT BREAST: No signal abnormalities on precontrast sequences. There is mild background parenchymal enhancement. There is intracapsular next or capsular implant rupture with collapse of the implant wit h a large amount of surrounding encapsulated fluid which appears somewhat loculated. There is interna l debris within the fluid. There is mild enhancement surrounding the capsule of the fluid. IMPRESSION: 1: Bilateral breast implant rupture with large complex loculated fluid collection surrounding the lef t breast implant which may represent reactive seroma or lymphocele. No suspicious abnormalities to renner ggest malignancy. Recommend surgical consultation. Routine screening bilateral mammogram in one year recommended. BI-RADS CATEGORY 2 - BENIGN FINDINGS Reviewed, dictated and finalized at location B. RICT CUSTOMS DIRECTOR IMPRESSION: 1: Bilateral breast implant rupture with large complex loculated fluid collecti on surrounding the left breast implant which may represent reactive seroma or l ymphocele. No suspicious abnormalities to suggest malignancy. Recommend surgica l consultation. Routine screening bilateral mammogram in one year recommended. BI-RADS CATEGORY 2 - BENIGN FINDINGS
== END 2023-09-07 13:43 | disposition home or self-care (01) ==
LOC: ANHIMG 13:52
PROVIDERS: PCP Family Medicine; Visit Provider Plastic Surgery
DX: N63.0 Unspecified lump in unspecified breast (principal); T85.43XA Leakage of breast prosthesis and implant, initial encounter
CPT/HCPCS: 77049; A9577; C8908

== ENCOUNTER 2023-09-23 12:20 | Outpatient (CLI) | payer MEDICARE, MEDICAID, SELFPAY ==
[2023-09-23 13:10] LABS: INR 1.1; Prothrombin Time 14.4 Seconds (11.1-14.7)
[2023-09-23 13:11] LABS: Partial Thromboplastin Time 27.2 SECONDS (22.3-36.8)
== END 2023-09-23 12:21 | disposition home or self-care (01) ==
LOC: ANHSURGERY 12:22
PROVIDERS: Anesthesiology; PCP Family Medicine; Visit Provider Plastic Surgery
DX: N18.32 Chronic kidney disease, stage 3b (principal); Z01.818 Encounter for other preprocedural examination
CPT/HCPCS: 36415; 85610; 85730

== ENCOUNTER 2023-09-27 02:27 | Day surgery (SDC) | payer MEDICARE, MEDICAID, SELFPAY ==
[2023-09-23 09:59] VITALS: BMI 26.2
--- NOTE | 2023-09-23 10:10 | PC.NURSE ---
PRE-OP INSTRUCTIONS, PLEASE READ CAREFULLY Report to the Outpatient Waiting Room, entrance under the green pavilion located off [facility], at time _0600_ on date _09/27/23_. Planned Procedure Time: _0730_. Time changes happen often and if your time is changed the preop area will call you the afternoon before. - You and your visitor will be asked to self-screen and do not enter if you have any COVID symptoms. - A mask is optional within the hospital at this time. - No food/fluids from midnight until time of surgery Take the following medications with a SIP of water the morning of surgery: _BUPROPION, HYDRALAZINE, METOPROLOL, VENLAFAXINE_ DO NOT STOP ANY OF YOUR OTHER PRESCRIPTION MEDICATIONS PRIOR TO SURGERY ?EXCEPT THE FOLLOWING Medications to discontinue per ANESTHESIA - _MULTIVITAMIN, VIT B COMPLEX 3 DAYS PRIOR TO SURGERY, Date to take last dose 09/23/23_ Please no make-up, nail sa[place], hairspray, perfume, deodorant, or body powder the day of surgery. No jewelry (including any body piercings) or valuables the day of surgery, leave them at home. Please take a shower or bath the night before, or the morning of, surgery with an antibacterial soap. Wear comfortable, loose fitting clothing. - Jewelry must be removed prior to entering the operating room. Rings and piercings that are not removed may be cut off. - The hospital will not accept responsibility for valuables. - Please leave all valuables, including medications, at home the day of surgery. If you are going home after surgery, a licensed regional [employer] company driver must drive you home. - NO public transportation without another adult if you receive anesthesia. - We recommend that an adult stay with you for 24 hours following discharge. - We also recommend that you do not drive, make important decision, drink alcoholic beverages, or take any drugs that were not prescribed by your health care provider for at least 24 hours after your discharge time. Follow any additional instructions given to you from your surgeon. If you or anyone in your household have experienced Covid symptoms in the past week, please notify your surgeon or the nurse liaison at the phone number below for possible testing. Telephone instructions given to _PATIENT_and asked if any additional questions and then verbalized understanding. Patient advised to call surgeon office or pre surgery nurse liaison [phone] if any additional questions.
[2023-09-27] VITALS (12 sets, daily range): BP systolic 137–184; BP diastolic 70–98; PULSE 65–82; RESP 13–21; TEMP 36.1; O2SAT 94–100
[2023-09-27] MEDS: LACTATED RINGERS 1,000 ML 30 ML IV CONT ×2 (06:42→09:15)
--- NOTE | 2023-09-27 06:47 | WPDANESEPPF ---
Anes - Initial Pre Proc Eval Procedure: Operation Date: 09/27/23 07:30 Proposed Procedures p Bilateral Breast Implant Removal with Capsulectomy - Stew Barriga MD Date/Time: 09/27/23 06:47 Surgeon: Stew Barriga MD Pre Op Diagnosis: left breast lump at 12oclock position Patient Data Age: 73 Gender: F Height: 1.71 m Weight: 79 kg Last Vital Signs Temp 36.1 C L 09/27/23 06:24 Pulse 67 09/27/23 06:24 Resp 16 09/27/23 06:24 BP 143/70 H 09/27/23 06:24 Pulse Ox 99 09/27/23 06:24 O2 Del Method Room Air 09/27/23 06:24 Allergies Allergy/AdvReac Type Severity Reaction Status Date / Time adhesive tape Allergy Intermediate itch and a Verified 09/27/23 06:19 rash Sulfa (Sulfonamide AdvReac Unknown Nausea Verified 09/27/23 06:19 Antibiotics) Home Medications Medication Instructions Recorded Confirmed Type multivitamin 1 tablet PO DAILY 03/22/22 09/23/23 History vitamin B complex 1 tablet PO DAILY 03/22/22 09/23/23 History oxybutynin chloride 10 mg 10 mg PO DAILY #90 tabs 04/07/23 09/23/23 Rx tablet,extended release 24 hr metoprolol succinate 50 mg 50 mg PO DAILY #90 tabs 06/20/23 09/23/23 Rx tablet,extended release 24 hr bupropion HCl 150 mg 24 hr tablet, 150 mg PO QAM #90 tabs 08/22/23 09/23/23 Rx extended release (Wellbutrin XL) venlafaxine 150 mg 150 mg PO DAILY 08/25/23 09/23/23 History capsule,extended release 24 hr dicyclomine 20 mg tablet 20 mg TID PRN Stomach Upset 09/23/23 09/23/23 History hydralazine 25 mg tablet 25 mg TID 09/23/23 09/23/23 History [id number] 2 cap PO QID PRN Stomach Upset 09/23/23 09/23/23 History 40,000-126,000-168,000 unit capsule, delay rel (Zenpep) pantoprazole 40 mg tablet,delayed 40 mg PO QAM PRN ACID REFLEX 12/15/23 12/15/23 History release sacubitril 97 mg-valsartan 103 mg 1 tablet BID 09/23/23 09/23/23 History tablet (Entresto) spironolactone 25 mg tablet 25 mg PO DAILY PRN SWELLING 09/23/23 09/23/23 History Patient hx anesthesia problems: none Family hx anesthesia problems: none Results Review: All pre-operative results and documents have been reviewed as part of the pre-operative evaluation. [facility] Past Medical History Medical History Asthma Chronic GERD Chronic kidney disease, stage 3 (moderate) Heart failure Hypertensive chronic kidney disease with stage 1 through stage 4 chronic kidney disease, or unspecified chronic kidney disease Impaired fasting glucose Major depressive disorder JONELLE (obstructive sleep apnea) Surgical History Surgical History History of gastric surgery s/p gastric sleeve Family History Family History Mother Family history of diabetes mellitus in first degree relative Father Family history of coronary artery disease Social History Social History Smoking status: Never smoker Second hand tobacco smoke exposure: No Alcohol intake: never Substance use: never Substance use type: does not use Lack of Transportation: No Lack of Food: Never True Current Housing: I Have Housing Concerned About Future Housing: No Difficulty Paying Gas/Electric Bills: No Difficulty Paying for Meds: No Currently Unemployed: No Education: High School Diploma/GED Difficulty w/ Childcare or Family Care: No Living arrangements: alone Occupation/Education: occupation Gender identity (if verbalized by the patient): Female Spiritual care concerns: No Agree to blood products: Yes Anes - Eval Final PreProcedure Day of Procedure 09/27/23 06:47 Patient weight: overweight Heart: regular rate and rhythm Lungs: clear to auscultation Airway: Mallampati scale class II Neurological: alert and oriented Last oral intake: >/= 8 hour
--- NOTE | 2023-09-27 07:00 | PM.HPGS ---
History of Present Illness History of Present Illness Chief complaint: left breast lump at 12oclock position Narrative: Patient seen and examined in pre-operative holding area. No interval change in medical history or symptoms. Patient remembers previous discussion of benefits and alternatives to procedure. Continues to desire to proceed with bilateral breast implant and capsule removal. I reviewed the risks including but not limited to bleeding ,infection, asymmetry, undesireable cosmetic appearance, partial/total skin/nipple loss, no change or worsening of symptoms, change in sensation. I discussed the possible use of assistants and their level of participation in the case. Patient stated understanding and signed the consent form wishing to proceed Review of Systems Review of Systems: All systems reviewed & are unremarkable except as noted in HPI and below PMFSH Past Medical History Medical History Asthma Chronic GERD Chronic kidney disease, stage 3 (moderate) Heart failure Hypertensive chronic kidney disease with stage 1 through stage 4 chronic kidney disease, or unspecified chronic kidney disease Impaired fasting glucose Major depressive disorder JONELLE (obstructive sleep apnea) Surgical History Surgical History History of gastric surgery s/p gastric sleeve Family History Family History Mother Family history of diabetes mellitus in first degree relative Father Family history of coronary artery disease Social History Social History Smoking status: Never smoker Second hand tobacco smoke exposure: No Alcohol intake: never Substance use: never Substance use type: does not use Lack of Transportation: No Lack of Food: Never True Current Housing: I Have Housing Concerned About Future Housing: No Difficulty Paying Gas/Electric Bills: No Difficulty Paying for Meds: No Currently Unemployed: No Education: High School Diploma/GED Difficulty w/ Childcare or Family Care: No Living arrangements: alone Occupation/Education: occupation Gender identity (if verbalized by the patient): Female Spiritual care concerns: No Agree to blood products: Yes Meds Home Medications and Allergies Home Medications Medication Instructions Recorded Confirmed Type multivitamin 1 tablet PO DAILY 03/22/22 09/23/23 History vitamin B complex 1 tablet PO DAILY 03/22/22 09/23/23 History oxybutynin chloride 10 mg 10 mg PO DAILY #90 tabs 04/07/23 09/23/23 Rx tablet,extended release 24 hr metoprolol succinate 50 mg 50 mg PO DAILY #90 tabs 06/20/23 09/23/23 Rx tablet,extended release 24 hr bupropion HCl 150 mg 24 hr tablet, 150 mg PO QAM #90 tabs 08/22/23 09/23/23 Rx extended release (Wellbutrin XL) venlafaxine 150 mg 150 mg PO DAILY 08/25/23 09/23/23 History capsule,extended release 24 hr dicyclomine 20 mg tablet 20 mg TID PRN Stomach Upset 09/23/23 09/23/23 History hydralazine 25 mg tablet 25 mg TID 09/23/23 09/23/23 History [id number] 2 cap PO QID PRN Stomach Upset 09/23/23 09/23/23 History 40,000-126,000-168,000 unit capsule, delay rel (Zenpep) pantoprazole 40 mg tablet,delayed 40 mg PO QAM PRN ACID REFLEX 09/23/23 09/23/23 History release sacubitril 97 mg-valsartan 103 mg 1 tablet BID 09/23/23 09/23/23 History tablet (Entresto) spironolactone 25 mg tablet 25 mg PO DAILY PRN SWELLING 09/23/23 09/23/23 History Allergies Allergy/AdvReac Type Severity Reaction Status Date / Time adhesive tape Allergy Intermediate itch and a Verified 09/27/23 06:19 rash Sulfa (Sulfonamide AdvReac Unknown Nausea Verified 09/27/23 06:19 Antibiotics) Vital Signs Vital Signs - 24 hr 09/27/23 06:24 Temperature 36.1 C L Pulse Rate 67 Respiratory Rate 16 Bloo
--- NOTE | 2023-09-27 07:01 | W.PM.PROC2 ---
Procedure Note - Detailed Date of Procedure 09/27/23 Pre-op Diagnosis breast pain and implant status Post-op Diagnosis Same (mastodynia) Procedure Performed bilateral breast implant and capsule removal Surgeon Stew Barriga MD [employer] Technician naga hernandez pa-c Anesthesia General Description of Procedure Patient was seen in the preoperative area where consent was signed and breasts marked. She was taken back to the operating room and placed on the table in the supine position. Time-out was performed with Anesthesia, surgeon,, and staff agreeing on patient's name site and surgery to be performed. SCDs were placed on the lower extremities and inflated. Antibiotics given IV. After general anesthesia was administered I prepped and draped breasts in the sterile fashion I took my attention 1st to the left breast for proceeded with making elliptical incision around her previous scar skin and dermis with a 15 blade scalpel. Bovie electrocautery was used to dissect through the subcutaneous tissue and identified the breast implant capsule. I proceeded with making an incision with Bovie in the breast capsule and proceeded with taking fluid samples to send for CD 30 and flow cytometry. I removed the ruptured left breast saline implant. There was 1 L brown discolored seroma fluid in the cavity this was suctioned out. I proceeded with total capsulectomy of the left breast with Bovie cautery. The implant had been placed in a subglandular pocket. Due to the extremely large volume of seroma which had gone medially and superiorly the entire breast tissue had been displaced laterally with significant amount of excess skin had been stretched and the capsule was adherent to the dermis of the upper medial breast. After resection of the capsule there was questionable viability of the overlying skin given proximity of capsule to dermis. The decision was made to excise this questionably viable medial skin on the left breast to reduce healing complications but this would also allow for some improved symmetry to the right breast. I proceeded with excising this excess skin and questionably viable tissue medially with 15 blade scalpel and Bovie cautery. This essentially resulted in creation a large superolateral based rotation flap with the breast tissue and nipple. This allowed improved placement of the nipple and management of the excess skin and tissue that had been displaced laterally from the seroma. The Superolateral flap was rotated and sutured medially measuring similar nipples positiong from midline compared to the right breast. This was secured with 3-0 Vicryl suture and 4-0 monocryl. Further dog ears were trimmed medially with 15 blade scalpel and bovie. This was closed with 3-0 viccryl and 4-0 monocryl. Closure was done after irrigation with a half liter of normal saline and placement of a 7 AMERICA drain and placing Surgicel powder in the wound after hemostasis with Bovie. The defect size to be closed with the flap measured 15x8cm. Excision of further medial dog ear and complex closure measured 2.6cm . The nipple appeared with cap refill. After changing gloves and using separate instruments made my attention to the right breast. Elliptical incision was made around her previous right breast scar through skin and dermis 15 blade scalpel. Bovie cautery was used to go through subcutaneous tissue down to the breast capsule. We proceeded with right breast capsulectomy and implant. After irrigation normal saline and hemostasis with Bovie breast gland was pexy down to chest wall with 3-0 Vicryl suture. 3-0 Vicryl and 4-0 Monocryl used for subcuticular closure after a 7 AMERICA drain was placed. The nipple appeared viable after his procedure with good cap refill. A dressing of mastisol, ster-strip, 4x4, tegaderm and breast binder was applied. The drains were hooked to bulb suction. Injected 15 cc of 1% lidocaine with epinephrine and 0.5% Marcaine plain around the incision si
[2023-09-27] MEDS: ceFAZolin 2 GM/D5W 50 ML 2 GM/50 ML BAG IVPB (07:30)
[2023-09-27] MEDS: LIDO 1%/EPINEPHRINE 1:100,000 50 ML VIAL 23 ML INFILTRATE (09:00)
[2023-09-27] MEDS: fentaNYL CITRATE INJ (*CRX) 100 MCG/2 ML VIAL 25 MCG IV PUSH ×3 (09:50→10:26)
[2023-09-27] MEDS: oxyCODONE HCL (*CRX) 5 MG TAB IR PO (11:50)
== END 2023-09-27 13:06 | disposition home or self-care (01) ==
PROVIDERS: PCP Family Medicine; Visit Provider Plastic Surgery
PROC: (CPT 19371; principal; 2023-09-27 07:30)
DX: T85.848A Pain due to other internal prosthetic devices, implants and grafts, initial encounter (principal); N64.89 Other specified disorders of breast; L90.5 Scar conditions and fibrosis of skin; Y83.8 Other surgical procedures as the cause of abnormal reaction of the patient, or of later complication, without mention of misadventure at the time of the procedure; I13.0 Hypertensive heart and chronic kidney disease with heart failure and stage 1 through stage 4 chronic kidney disease, or unspecified chronic kidney disease; I50.9 Heart failure, unspecified; N18.30 Chronic kidney disease, stage 3 unspecified; G47.33 Obstructive sleep apnea (adult) (pediatric); F32.9 Major depressive disorder, single episode, unspecified; K21.9 Gastro-esophageal reflux disease without esophagitis; Z98.84 Bariatric surgery status
CPT/HCPCS: 19371; 14301; 14302 ×2; 36415; 85610; 85730; 88108; 88184; 88300; 88304; 88305; A9270; J0690; J1100; J1170; J2405; J2704; J3010; J7120

== ENCOUNTER 2024-01-23 15:31 | Outpatient (CLI) | payer MEDICARE, MEDICAID, SELFPAY ==
[2024-01-23 21:27] LABS: Appearance Urine Cloudy (Clear); Bacteria Urine None Seen /hpf; Bilirubin Urine Negative (Negative); Blood Urine Negative (Negative); Color Urine Dark Yellow (Yellow); Glucose Urine UA Negative (Negative); Ketones Urine Negative (Negative); Leukocyte Esterase Ur 2+ LEU/UL (Negative); Need Manual Microscopic Reviewed; Nitrate Urine Negative (Negative); Non Pathogenic Casts 0-2; Protein Urine Negative (Negative); RBC Urine 0-2 /hpf (0-2); Specific Grav Ur 1.026 (1.001-1.035); Squamous Epithelial Cell Urine Occasional /hpf (Few); Urobilinogen Urine 0.2 mg/dL (<2.0); WBC Urine 51-100 /hpf (0-3); pH Urine 5.5 (5.0-9.0)
[2024-01-23 21:46] LABS: Add Urine Microscopic? YES
[2024-01-23 22:58] LABS: Hemoglobin A1C 5.3 % (<5.7)
== END 2024-01-23 15:32 | disposition home or self-care (01) ==
LOC: ANHBWCLAB 15:33
PROVIDERS: PCP Nurse Practitioner Adult Health; Visit Provider Family Medicine
DX: R35.0 Frequency of micturition (principal); R53.83 Other fatigue; R73.9 Hyperglycemia, unspecified
CPT/HCPCS: 36415; 81001; 83036; 87086; 87088

== ENCOUNTER 2024-04-04 13:25 | Outpatient (CLI) | payer MEDICARE, MEDICAID, SELFPAY ==
[2024-04-04 19:34] LABS: Albumin Level 4.5 g/dL (3.5-5.1); Anion Gap 3 mmol/L (4-12); Blood Urea Nitrogen 37 mg/dL (7-17); Carbon Dioxide 31 mmol/L (22-30); Chloride 106 mmol/L (98-107); Estimated Glomerular Filt Rate 37; Glucose 104 mg/dL (65-110); Phosphorus 3.9 mg/dL (2.5-4.5); Potassium 4.5 mmol/L (3.4-5.0); Sodium 140 mmol/L (137-145)
[2024-04-04 20:15] LABS: Appearance Urine Clear (Clear); Bacteria Urine None Seen /hpf; Bilirubin Urine Negative (Negative); Blood Urine Negative (Negative); Color Urine Yellow (Yellow); Creatinine Urine 157.6 mg/dL; Glucose Urine UA Negative (Negative); Ketones Urine Negative (Negative); Leukocyte Esterase Ur 1+ LEU/UL (Negative); Nitrate Urine Negative (Negative); Protein Urine Negative (Negative); RBC Urine 0-2 /hpf (0-2); Specific Grav Ur 1.021 (1.001-1.035); Squamous Epithelial Cell Urine None Seen /hpf (Few); Total Protein Urine Random 9 mg/dL; Ur Ttl Prot Creatinine Ratio 0.06 mg/mg (0-0.20); Urobilinogen Urine 0.2 mg/dL (<2.0); pH Urine 5.5 (5.0-9.0)
[2024-04-04 20:17] LABS: Add Urine Microscopic? YES
== END 2024-04-04 13:26 | disposition home or self-care (01) ==
LOC: ANHBWCLAB 13:28
PROVIDERS: Internal Medicine Nephrology; PCP Nurse Practitioner Adult Health; Visit Provider Nurse Practitioner Adult Health
DX: R35.0 Frequency of micturition (principal); I12.9 Hypertensive chronic kidney disease with stage 1 through stage 4 chronic kidney disease, or unspecified chronic kidney disease; N18.32 Chronic kidney disease, stage 3b
CPT/HCPCS: 36415; 80069; 81001; 82570; 84156; 87086; 87088

== ENCOUNTER 2024-04-17 07:42 | Outpatient (CLI) | payer MEDICARE, MEDICAID, SELFPAY ==
[2024-04-17 19:19] LABS: Hematocrit 49.1 % (37.0-47.0); Hemoglobin 15.1 g/dL (12.0-15.0); Mean Corpuscular HGB Conc 30.8 g/dl (32-36); Mean Corpuscular Hemoglobin 31.9 pg (26-34); Mean Corpuscular Volume 103.8 fl (80-100); Mean Platelet Volume 10.1 fl (7.4-10.4); Platelet Count Result 244 k/mm3 (150-375); Red Blood Count 4.73 M/mm3 (4.2-5.4); Red Cell Distribution Width 13.7 % (11.5-14.5); White Blood Count 8.5 K/mm3 (4.5-10.0)
[2024-04-17 19:26] LABS: Anion Gap 11 mmol/L (4-12); Blood Urea Nitrogen 39 mg/dL (7-17); Carbon Dioxide 27 mmol/L (22-30); Chloride 103 mmol/L (98-107); Estimated Glomerular Filt Rate 28; Glucose 90 mg/dL (65-110); Potassium 4.6 mmol/L (3.4-5.0); Sodium 141 mmol/L (137-145)
[2024-04-17 20:26] LABS: Appearance Urine Cloudy (Clear); Bacteria Urine None Seen /hpf; Bilirubin Urine Negative (Negative); Blood Urine Negative (Negative); Calcium Oxalate Crystals Urine Present /hpf; Color Urine Yellow (Yellow); Glucose Urine UA Negative (Negative); Hyaline Casts Urine Present /lpf; Ketones Urine Negative (Negative); Leukocyte Esterase Ur 1+ LEU/UL (Negative); Need Manual Microscopic Reviewed; Nitrate Urine Negative (Negative); Protein Urine Trace mg/dL (Negative); Specific Grav Ur 1.025 (1.001-1.035); Squamous Epithelial Cell Urine Occasional /hpf (Few); Urobilinogen Urine 0.2 mg/dL (<2.0); WBC Urine 21-50 /hpf (0-3); pH Urine 5.5 (5.0-9.0)
[2024-04-17 20:30] LABS: Add Urine Microscopic? YES
== END 2024-04-17 07:43 | disposition home or self-care (01) ==
PROVIDERS: PCP Nurse Practitioner Adult Health; Visit Provider Nurse Practitioner Adult Health
DX: R35.0 Frequency of micturition (principal)
CPT/HCPCS: 36415; 80048; 81001; 85027; 87077; 87086; 87088

== ENCOUNTER 2024-10-08 15:35 | Outpatient (CLI) | payer MEDICARE, MEDICAID, SELFPAY ==
[2024-10-08 20:43] LABS: Add Urine Microscopic? YES; Appearance Urine Clear (Clear); Bacteria Urine Rare /hpf; Bilirubin Urine Negative (Negative); Blood Urine Negative (Negative); Color Urine Yellow (Yellow); Glucose Urine UA Negative (Negative); Ketones Urine Negative (Negative); Leukocyte Esterase Ur 1+ LEU/UL (Negative); Nitrate Urine Negative (Negative); Non Pathogenic Casts 0-2; Protein Urine Negative (Negative); RBC Urine 0-2 /hpf (0-2); Specific Grav Ur 1.021 (1.001-1.035); Squamous Epithelial Cell Urine None Seen /hpf (Few); Urobilinogen Urine 0.2 mg/dL (<2.0); pH Urine 5.5 (5.0-9.0)
[2024-10-08 20:47] LABS: Basophils Percent Auto 0.5 % (0.2-1.2); Eosinophils Absolute Auto 0.3 K/mm3 (0-0.3); Eosinophils Percent Auto 3.4 % (0-4.4); Hematocrit 42.5 % (37.0-47.0); Hemoglobin 13.3 g/dL (12.0-15.0); Immature Granulocyte Absolute 0.01 K/mm3 (0.00-0.031); Immature Granulocyte Percent A 0.1 % (0-0.5); Lymphocytes Absolute Auto 2.06 K/mm3 (0.9-3.2); Lymphocytes Percent Auto 25.9 % (18.3-44.2); Mean Corpuscular HGB Conc 31.3 g/dl (32-36); Mean Corpuscular Hemoglobin 32.1 pg (26-34); Mean Corpuscular Volume 102.7 fl (80-100); Mean Platelet Volume 10.1 fl (7.4-10.4); Monocytes Absolute Auto 0.7 K/mm3 (0.1-0.6); Monocytes Percent Auto 9.3 % (2.6-8.5); Neutrophils Absolute Auto 4.8 K/mm3 (1.3-6.7); Neutrophils Percent Auto 60.8 % (45.5-73.1); Platelet Count Result 238 k/mm3 (150-375); Red Blood Count 4.14 M/mm3 (4.2-5.4); Red Cell Distribution Width 13.5 % (11.5-14.5)
[2024-10-08 20:50] LABS: Alanine Aminotransferase 24 U/L (6-35); Albumin Level 4.2 g/dL (3.5-5.1); Alkaline Phosphatase 106 U/L (38-126); Anion Gap 1 mmol/L (4-12); Aspartate Amino Transferase 38 U/L (14-36); Bilirubin,Total 0.4 mg/dL (0.2-1.3); Blood Urea Nitrogen 37 mg/dL (7-17); Calcium 9.9 mg/dL (8.4-10.2); Carbon Dioxide 32 mmol/L (22-30); Chloride 107 mmol/L (98-107); Cholesterol 192 mg/dL (0-200); Estimated Glomerular Filt Rate 37; Glucose 104 mg/dL (65-110); HDL Direct 72 mg/dL; Magnesium 2.4 mg/dL (1.6-2.3); Sodium 140 mmol/L (137-145); Triglycerides 175 mg/dL (<150)
[2024-10-08 20:58] LABS: NT Pro B Type Natriuretic Pept 438 pg/mL (19.9-100)
[2024-10-08 21:01] LABS: LDL Cholesterol Direct 75 mg/dL
[2024-10-08 21:35] LABS: Hemoglobin A1C 5.4 % (<5.7)
== END 2024-10-08 15:36 | disposition home or self-care (01) ==
PROVIDERS: PCP Nurse Practitioner Adult Health; Visit Provider Nurse Practitioner Adult Health
DX: R73.9 Hyperglycemia, unspecified (principal); I11.0 Hypertensive heart disease with heart failure; I50.9 Heart failure, unspecified; R39.9 Unspecified symptoms and signs involving the genitourinary system; G47.33 Obstructive sleep apnea (adult) (pediatric)
CPT/HCPCS: 36415; 80053; 80061; 81001; 83036; 83735; 83880; 84443; 85025; 87086; 87181

== ENCOUNTER 2024-12-11 13:55 | Outpatient (CLI) | payer MEDICARE, MEDICAID, SELFPAY ==
[2024-12-11 18:59] LABS: Anion Gap 9 mmol/L (4-12); Blood Urea Nitrogen 30 mg/dL (7-17); Calcium 9.4 mg/dL (8.4-10.2); Carbon Dioxide 30 mmol/L (22-30); Chloride 102 mmol/L (98-107); Estimated Glomerular Filt Rate 36; Glucose 102 mg/dL (65-110); Phosphorus 3.6 mg/dL (2.5-4.5); Sodium 141 mmol/L (137-145)
== END 2024-12-11 13:56 | disposition home or self-care (01) ==
PROVIDERS: PCP Nurse Practitioner Adult Health; Visit Provider Internal Medicine Nephrology
DX: I12.9 Hypertensive chronic kidney disease with stage 1 through stage 4 chronic kidney disease, or unspecified chronic kidney disease (principal); N18.32 Chronic kidney disease, stage 3b
CPT/HCPCS: 36415; 80069

== ENCOUNTER 2024-12-12 14:28 | Outpatient (CLI) | payer MEDICARE, MEDICAID, SELFPAY ==
--- OUTSIDE RECORDS SUMMARY | 2024-12-12 16:11 | XMS_ITS ---
Author Organization [facility] Address [address] [place] [address] Care Team Providers Care Specialty Cook Name Role Phone Hero ROCHE, Maikel Primary Care Provider Aileen RESENDIZ NP, BENJI Padilla [phone] REASON FOR VISIT Needs call back from office MEDICATIONS Medication SIG (Take, Route, Frequency, Duration) Notes Start Date End Date Status Omeprazole 40 MG 1 capsule 30 minutes before morning meal Orally Once a day for 30 days may fill 90 day 10/06/2023 Active Encounters Encounter Location Date Provider Diagnosis [facility] [address] [place] [address] 09/21/2023 BENJI RESENDIZ PLAN OF TREATMENT Medication Medication Name Sig Start Date Stop Date Notes Omeprazole 40 MG 1 capsule 30 minutes before morning meal Orally Once a day for 30 days 10/06/2023 may fill 90 day Progress Notes * Rosita MIN LDOB: 9 (73 yo F)Acc No.[id number]:09/21/2023 Patient: MECHELLE Rosita Bah :1950 Age:73 Y Sex:Female Address:[place] [address] * Refills Start Omeprazole Capsule Delayed Release, 40 MG, Orally, 30, 1 capsule 30 minutes before morning meal, Once a day, 30 days, Refills=6 * true * Date:
--- OUTSIDE RECORDS SUMMARY | 2024-12-12 16:12 | XMS_ITS | Patient Health Record ---
Author Organization [facility] Address [address] [place] [address] Care Team Providers Care Purchaser Name Role Phone Maikel Monahan MD Primary Care Provider Aileen RESENDIZ PATROL POLICE LIEUTENANT, BENJI Unavailable ALLERGIES Allergen (clinical drug ingredient) Drug/Non Drug Allergy documented on EMR Reaction Allergy Type Onset Date Status Adhesive itch/rash Allergy Active Substance with sulfonamide structure and antibacterial mechanism of action (substance) Sulfa Antibiotics nausea and vomiting Drug Allergy Active REASON FOR REFERRAL No Information MEDICATIONS Medication SIG (Take, Route, Frequency, Duration) Notes Start Date End Date Status Dicyclomine HCl 20 MG TAKE 1 TABLET BY MOUTH THREE TIMES DAILY NEEDED FOR ABDOMINAL PAIN for 30 Active Spironolactone 25 MG 1 tablet Orally Active Jardiance 10 MG 1 tablet in the morning Orally Once a day Active hydrALAZINE HCl 50 MG 1 tablet with food Orally Three times a day Active Zenpep [id number] UNIT as directed Ora lly Take 2 with meals and 1 with snacks. Max 8/day for 30 days 09/09/2023 Active Vitamin D3 Active One A Day Women 50 Plus Active Osteo Bi-Flex One Per Day Active buPROPion HCl ER (XL) 150 MG 1 tablet in the morning Orally Once a day Active Vitamin B12 Active Entresto 97-103 MG 1 tablet Orally Twice a day Active Metoprolol Succinate ER 50 MG 1 tablet Orally Once a day Active Omeprazole 40 MG 1 capsule 30 minutes before morning meal Orally Once a day for 30 days february 10/06/2023 Active oxyBUTYnin Chloride ER 10 MG 1 tablet Orally Once a day Active Venlafaxine HCl ER 150 MG 1 capsule with food Orally Once a day Active PLAN OF TREATMENT No Information Insurance Providers Payer Name Payer Address Payer Phone Subscriber Number Group Number Insured Name Patient Relationship to Insured Coverage Start Date Coverage End Date [employer] Medicare [address] [address] [place], [place] [id number] Rosita Flores Self - patient is the insured [place] - Secondary to Medicare/Med i [address] [address] [place], [place] [id number] Rosita Flores Self - patient is the insured MEDICAL (GENERAL) HISTORY Medical History History ICD Code asthma gastroesophageal reflux disease (GERD) CKD III depression JONELLE Surgical History Surgery Date(Month/Year) gastric sleeve
--- OUTSIDE RECORDS SUMMARY | 2024-12-12 16:12 | XMS_ITS ---
Author Organization [facility] Address [address] [facility] [address] [place] [address] Care Team Providers Care Screening Nurse Name Role Phone Hero ROCHE, Maikel Primary Care Provider Aileen RESENDIZ NP, BENJI Randy REASON FOR VISIT omeprazole MEDICATIONS Medication SIG (Take, Route, Frequency, Duration) Notes Start Date End Date Status Omeprazole 40 MG 1 capsule 30 minutes before morning meal Orally Once a day for 30 days may fill 90 day 10/06/2023 Active Encounters Encounter Location Date Provider Diagnosis [facility] [address] [facility] [address] [place] [address] 10/06/2023 BENJI RESENDIZ PLAN OF TREATMENT Medication Medication Name Sig Start Date Stop Date Notes Omeprazole 40 MG 1 capsule 30 minutes before morning meal Orally Once a day for 30 days 10/06/2023 may fill 90 day Progress Notes * Rosita MIN LDOB: (73 yo F)Acc No.[id number]:10/06/2023 Patient: Rosita MIN Olvin :1950 Age:73 Y Sex:Female Address:[place] [address] * Refills Refill Omeprazole Capsule Delayed Release, 40 MG, Orally, 30, 1 capsule 30 minutes before morning meal, Once a day, 30 days, Refills=6 * true * Date:
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
--- OUTSIDE RECORDS SUMMARY | 2024-12-12 16:12 | XMS_ITS | CONTINUITY OF CARE DOCUMENT ---
Author Name marina gray Address Unknown Organization [facility] Address [address] [place] [address] [address] [place] [address] Phone [phone] Care Team Providers Care Centerless Grinder Name Role Phone marina gray Unavailable Unavailable INSURANCE PROVIDERS Payer name Policy type / Coverage type Lawrence red republican ID [employer] insurance company [id number]
--- OUTSIDE RECORDS SUMMARY | 2024-12-12 16:12 | XMS_ITS ---
Author Organization [facility] Address [address] [facility] [address] [place] [address] Care Team Providers Care Bull Ladle Tender Name Role Phone Maikel Monahan MD Primary Care Provider Aileen RESENDIZ NP, BENJI Padilla REASON FOR VISIT Update Encounters Encounter Location Date Provider Diagnosis [facility] [address] [facility] [address] [place] [address] 09/16/2023 BENJI RESENDIZ PLAN OF TREATMENT No Information Progress Notes * Rosita MIN LDOB: [birth year] (73 yo F)Acc No.[id number]:09/16/2023 Patient: MECHELLE Rosita Bah :1950 Age:73 Y Sex:Female Address:[place] [address] * true * Date:
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
--- OUTSIDE RECORDS SUMMARY | 2024-12-12 16:12 | XMS_ITS | Referral Summary ---
Author Organization [facility]ly [facility] Address [address] [place] [phone] Care Team Providers Care Equipment Sales Specialist Name Role Phone Maikel Monahan MD Primary Care Provider [phone] Encounters Date Type Department Care Team Description 11/20/2024 2:30 PM PLUMBING SERVICE TECHNICIAN Office Visit [facility] Orthopedics and Sports Medicine [address] [place] [address] [place] [phone] Alicja Cagle NP Primary osteoarthritis of right knee (Primary Dx) from Last 3 Months Allergies Active Allergy Reactions Criticality Noted Date [...] (02/11/2022): Added automatically from request for surgery [id number] Immunizations Immunization Administration Dates Next Due Influenza, Quadrivalent, Hig h Dose, Preservative Free, Intrr 07/03/2020 Influenza, Trivalent, High D ose, Split, Preservative Free, Intramuscular 06/21/2019,07/01/2018,07/06/2017,08/03 Influenza, Trivalent, Preser vative Free, Intramuscular 06/10/2015 Pneumococcal Polysaccharide PPV23 08/03/2016 Tdap 07/01/2018 Social History Tobacco Use Types Packs/Day Years Used Date Smoking Tobacco: Never Smokeless Tobacco: Never Tobacco Cessation:Counseling Given: Not Answered [facility] Utilities Answer Date Recorded In the past 12 months has dora e electric, gas, oil, or water company threatened to shut off services in your [...] week 06/01/2024 How often do you attend chur ch or taoism services? Patient declined 06/01/2024 Do you belong to any clubs o r organizations such as rastafari groups, unions, fraternal or athletic groups, or [...] any time in the past 12 m [facility], were you homeless or living in a [place] health care facility (including now)? No 06/01/2024 Personal Safety Answer Date Recorded Have you ever been in or are you currently in a harmful physical or emotional relationship or is someone making you feel afraid or unsafe? Denies 05/26/2024 Comments No Sex and Gender Information Value Date Recorded Sex Assigned at Not on file Legal Sex Female 7:59 AM PLUMBING SERVICE TECHNICIAN Gender Identity Not on file Sexual Orientation Not on file Last Filed Vital Signs Vital Sign Reading Time Taken Comments Blood Pressure 168/88 11/20/2024 2:23 PM PLUMBING SERVICE TECHNICIAN Pulse 59 11/20/2024 2:23 PM PLUMBING SERVICE TECHNICIAN Temperature 36.3 C (97.3 F) 05/28/2024 3:54 PM CDT Respiratory Rate 18 05/28/2024 3:54 PM CDT Oxygen Saturation 96% 05/28/2024 3:54 PM CDT Inhaled Oxygen Concentration - - Weight 88.2 kg (194 lb 6.4 oz) 11/20/2024 2:23 P M PLUMBING SERVICE TECHNICIAN Height 170.2 cm (5' 7 ) 11/20/2024 2:23 PM PLUMBING SERVICE TECHNICIAN Body Mass Index 30.45 11/20/2024 2:23 PM PLUMBING SERVICE TECHNICIAN Plan of Treatment Not on file Procedures Procedure Name Priority Date/Time Associated Diagnosis Comments MT ARTHROCENTESIS ASPIR&/INJ MAJOR JT/BURSA W/O US Routine 11/20/2024 2:30 PM PLUMBING SERVICE TECHNICIAN Primary osteoarthritis of right knee SCREENING MAMMOGRAM Routine 11/01/2012 9 :19 AM PLUMBING SERVICE TECHNICIAN from Last 3 Months or Most Recently Relevant to Health Maintenance Results * MT ARTHROCENTESIS ASPIR&/INJ MAJOR JT/BURSA W/O US (11/20/2024 2:30 PM PLUMBING SERVICE TECHNICIAN) Narrative Alicja Cagle NP - 11/20/2024 2:30 PM PLUMBING SERVICE TECHNICIAN Alicja Cagle NP 11/20/2024 2:45 PM Large [...] the procedure well with no immediate complications Alicja Cagle DIRECTOR OF QUALITY CONTROL IN CLINIC/BEDSIDE ORDER STEPHIE Final Result * Screening Mammogram (11/01/2012 9:19 AM PLUMBING SERVICE TECHNICIAN) Anatomical Region Laterality Modality Breast N/A Mammography 11/01/2012 9:19 AM PLUMBING SERVICE TECHNICIAN Historical Provider IMAlfredo MAMMO PROCEDURES Jacey l Result from Last 3 Months or Most Recently Relevant to Health Maintenance Insurance [employer] Member Subscriber Plan / Payer (Ef fective 2021-Present) Name:Rosita Flores Relation to Subscriber:Self Name:Rosita Flores Payer ID:[id number] (NAIC) Type:MEDICARE RISK OTHER Address: [address] [employer] [place] Member Subscriber Plan / Payer (Ef fective 2022-Present) Name:Rosita Flores Relation to Subscriber:Self Name:Rosita Flores Payer ID:[id number] Group ID:Not on file Type:MEDICAID [place] Address: [place] [id number] MEDICARE SOLUTIONS Advance Directives For more information, please contact: [phone] * Full Code (Latest Code Status on File) Date Activated Date Inactivated Comments 05/27/2024 1:18 AM 05/28/2024 9:38 PM Care Teams Equipment Sales Specialist Relationship Specialty Start Date End Date Maikel Monahan MD PCP - General Family Practice 07/29/21
[2024-12-12 18:50] LABS: Creatinine Urine 32.6 mg/dL; Total Protein Urine Random 11 mg/dL; Ur Ttl Prot Creatinine Ratio 0.34 mg/mg (0-0.20)
== END 2024-12-12 14:29 | disposition home or self-care (01) ==
PROVIDERS: PCP Nurse Practitioner Adult Health; Visit Provider Nurse Practitioner Adult Health
DX: I12.9 Hypertensive chronic kidney disease with stage 1 through stage 4 chronic kidney disease, or unspecified chronic kidney disease (principal); N18.32 Chronic kidney disease, stage 3b
CPT/HCPCS: 82570; 84156

== ENCOUNTER 2025-02-05 13:34 | Outpatient (CLI) | payer MEDICARE, MEDICAID, SELFPAY ==
--- NOTE | ~2025-02-05 | XR_ITS ---
XR chest 2V Ordering provider: Milvia Ladd APRN History: 74 years Female with . SOB x 2 days . Comparison: March 26, 2022 FINDINGS: MEDIASTINUM: The cardiac silhouette is not enlarged. LUNGS: No infiltrates, effusions or pneumothorax. Underlying emphysematous changes. OTHER: No free air under the diaphragm. IMPRESSION: No acute cardiopulmonary pathology. Reviewed, dictated and finalized at location A.
--- OUTSIDE RECORDS SUMMARY | 2025-02-05 14:49 | XMS_ITS | CONTINUITY OF CARE DOCUMENT ---
Author Name marina gray Address Unknown Organization [facility] Address [id number] [place] [address] [address] [place] [address] Phone [phone] Care Team Providers Care Chemical Mixer Name Role Phone marina gray Unavailable Unavailable INSURANCE PROVIDERS Payer name Policy type / Coverage type [place] [employer] party ID [employer] Commercial insurance company [id number]
--- OUTSIDE RECORDS SUMMARY | 2025-02-05 14:49 | XMS_ITS | Clinical Summary ---
Author Organization [facility] Address [address] [place] [phone] Care Team Providers Care Wastewater Analyst Lab Analyst Name Role Phone Maikel Monahan MD Primary Care Provider [phone] Allergies Active Allergy Reactions Criticality Noted Date [...] MORNING NEEDED FOR ACID REFLEX 10/09/2024 Active Active Problems Problem Noted Date Diagnosed [...] (02/11/2022): Added automatically from request for surgery [id number] Encounters Date Type Department Care Team Description 11/20/2024 2:30 PM PROGRAM ARCHITECT Office Visit [facility] Medical Group Orthopedics and Sports Medicine [address] [place] [phone] Alicja Cagle NP Primary osteoarthritis of [...] Tobacco: Never Tobacco Cessation:Counseling Given: Not Answered [facility] Utilities Answer Date Recorded In the past 12 months has th e electric, gas, oil, or water company [...] often do you attend chur ch or alevism services? Patient declined 06/01/2024 Do you belong to any clubs o r organizations such as christian groups, unions, fraternal or athletic groups, or [...] any time in the past 12 m [facility], were you homeless or living in a [...] on file Legal Sex Female 7:59 AM PROGRAM ARCHITECT Gender Identity Not on file Sexual Orientation Not on file Obstetrics History Last Filed Vital Signs Vital Sign Reading Time Taken Comments Blood Pressure 168/88 11/20/2024 2:23 PM PROGRAM ARCHITECT Pulse 59 11/20/2024 2:23 PM PROGRAM ARCHITECT Temperature 36.3 C (97.3 F) 05/28/2024 3:54 PM CDT Respiratory Rate 18 05/28/2024 3:54 PM CDT Oxygen Saturation 96% 05/28/2024 3:54 PM CDT Inhaled Oxygen Concentration - - Weight 88.2 kg (194 lb 6.4 oz) 11/20/2024 2:23 P M PROGRAM ARCHITECT Height 170.2 cm (5' 7 ) 11/20/2024 2:23 PM PROGRAM ARCHITECT Body Mass Index 30.45 11/20/2024 2:23 PM PROGRAM ARCHITECT Plan of Treatment Health Maintenance Due Date Last Done Comments Colon Cancer Screening-Colonoscopy 1950 Depression Screening 1949 Hepatitis C Screening 1949 Osteoporosis Screening-Bone Density Scan 1949 Hepatitis B Screening 1967 Zoster Vaccine (1 of 2) 1999 Well Visit 65+ 2014 Pneumococcal vaccine 65+ (2 of 2 - PCV) 08/03/2017 08/03/2016 Covid-19 Vaccine (5 - 2023-2 5 season) 2024 05/27/2021, 02/10/2021, 12/29/2020, Additional history exists Fall Risk Assessment 05/28/2025 05/28/2024 Influenza Vaccine (Season Ended) 2025 07/20/2021, 07/03/2020, 07/03/2020, Additional history exists DTaP/Tdap/Td Vaccine (2 - Td or Tdap) 07/01/2028 07/01/2018 Breast Cancer Screening-Mammogram Discontinued 013 Procedures Procedure Name Priority Date/Time Associated Diagnosis Comments AR ARTHROCENTESIS ASPIR&/INJ MAJOR JT/BURSA W/O US Routine 11/20/2024 2:30 PM PROGRAM ARCHITECT Primary osteoarthritis of right knee SCREENING MAMMOGRAM Routine 11/01/2012 9 :19 AM PROGRAM ARCHITECT from Last 3 Months or Most Recently Relevant to Health Maintenance Results * AR ARTHROCENTESIS ASPIR&/INJ MAJOR JT/BURSA W/O US (11/20/2024 2:30 PM PROGRAM ARCHITECT) Narrative Alicja Cagle NP - 11/20/2024 2:30 PM PROGRAM ARCHITECT Alicja Cagle NP 11/20/2024 2:45 PM Large [...] with no immediate complications us Alicja Cagle SORTING MACHINE OPERATOR IN CLINIC/BEDSIDE ORDER STEPHIE Final Result * Screening Mammogram (11/01/2012 9:19 AM PROGRAM ARCHITECT) Anatomical Region Laterality Modality Breast N/A Mammography 11/01/2012 9:19 AM PROGRAM ARCHITECT us Historical Provider MD MEEHAN MAMMO PROCEDURES Jacey l Result from Last 3 Months or Most Recently Relevant to Health Maintenance Insurance [employer] [facility] MEDIC[facility] ADVANTAGE [facility] MEDIC[facility] Address: [address] [address] [place] [address] IDPA [facility] MEDICARE ADVANTAGE Advance Directives For more information, please contact: [phone] * Full Code (Latest Code Status on File) Date Activated Date Inactivated Comments 05/27/2024 1:18 AM 05/28/2024 9:38 PM Care Teams Wastewater Analyst Lab Analyst Relationship Specialty Start Date End Date Maikel Monahan MD PCP - General Family Practice 07/29/21
--- OUTSIDE RECORDS SUMMARY | 2025-02-05 14:49 | XMS_ITS | Clinical Summary ---
Author Organization [facility] Address [address] [place] [phone] Phone Care Team Providers Care Manager Community Outreach Name Role Phone Maikel Monahan MD Primary Care Provider [phone] Allergies Active Allergy Reactions Criticality Noted Date Comments Latex Itching Low 02/10/2022 Sulfa Antibiotics Nausea And Vomiting Low 0 Medications amLODIPine (NORVASC) 5 MG tablet TAKE 2 TABLETS BY MOUTH ONCE DAILY AT BEDTIME 2 Active EQ Aspirin Adult Low Dose 81 MG EC tablet Take 81 mg by mouth 1 (one) time each day in the morning 2 Active cetirizine (ZyrTEC) 10 MG tablet Take 10 mg by mouth 1 (one) time each day 2 Active cyanocobalamin (VITAMIN B-12) 1000 MCG tablet Take 1,000 mcg by mouth daily Active fluticasone (FLONASE) 50 MCG/ACT nasal spray USE 1 SPRAY(S) IN EACH NOSTRIL TWICE DAILY 2 Active ipratropium (ATROVENT) 0.03 % nasal spray USE 2 SPRAY(S) IN EACH NOSTRIL TWICE DAILY 2 Active oxybutynin XL (DITROPAN-XL) 5 MG 24 hr tablet Take 5 mg by mouth 1 (one) time each day 2 Active venlafaxine XR (EFFEXOR-XR) 75 MG 24 hr capsule Take 75 mg by mouth 1 (one) time each day 2 Active metoprolol succinate XL (TOPROL-XL) 50 MG 24 hr tablet Take 50 mg by mouth 1 (one) time each day 2 Active Jardiance 10 MG tablet TAKE 1 TABLET BY MOUTH ONCE DAILY FOR 30 DAYS 2 Active Xiidra 5 % solution INSTILL 1 DROP INTO EACH EYE TWICE DAILY 2 Active Entresto 97-103 MG per tablet Take 1 tablet by mouth in the morning and 1 tablet before bedtime. 2 Active spironolactone (ALDACTONE) 25 MG tablet TAKE 1 TABLET BY MOUTH ONCE DAILY FOR 90 DAYS 2 Active topiramate (TOPAMAX) 25 MG tablet TAKE 1 TABLET BY MOUTH ONCE DAILY FOR 7 DAYS THEN INCREASE TO 2 TABLETS BY MOUTH ONCE DAILY THEREAFTER 2 Active traZODone (DESYREL) 50 MG tablet TAKE 1 TABLET BY MOUTH ONCE DAILY AT BEDTIME NEEDED FOR INSOMNIA 2 Active furosemide (LASIX) 80 MG tablet TAKE 1 TABLET BY MOUTH ONCE DAILY NEEDED FOR SHORTNESS OF BREATH, SWELLING OF LEGS, OR IF WEIGHT INCREASES BY TWO POUNDS. 2 Active Active Problems Problem Noted Date Diagnosed [...] (05/25/2022): Added automatically from request for surgery [id number] Overactive bladder 09/25/2021 Urinary incontinence 09/25/2021 Atypical [...] esophag itis 03/14/2016 Other asthma 03/14/2016 Immunizations Immunization Administration Dates Next Due Influenza (IM) Preservative [...] drink = 0.6 oz pur e alcohol) Comments Unknown Sex and Gender Information Value Date Recorded Sex Assigned at Not on file Legal Sex Female 8:33 AM [facility] Gender Identity Not on file Sexual Orientation Not on file Last Filed Vital Signs Vital Sign Reading Time Taken Comments Blood Pressure 138/80 08/30/2022 9:43 AM NICK SETTER Pulse - - Temperature 36.1 C (96.9 F) 08/30/2022 9:43 AM NICK SETTER Respiratory Rate 18 08/30/2022 9:43 AM NICK SETTER Oxygen Saturation - - Inhaled Oxygen Concentration - - Weight 101 kg (222 lb) 08/30/2022 9:43 AM NICK SETTER Height 172.7 cm (5' 8 ) 08/30/2022 9:43 AM NICK SETTER Body Mass Index 33.75 08/30/2022 9:43 AM NICK SETTER Plan of Treatment Health Maintenance Due Date Last Done Comments Pneumococcal PPSV23/PCV13 65 + Years / Low and Medium Risk (2 of 3 - PCV) 08/03/2017 08/03/2016 Influenza Vaccine (Season Ended) 2025 06/10/20 15 Insurance [employer] [place] Care Teams Manager Community Outreach Relationship Specialty Start Date End Date Maikel Monahan MD PCP - General Family Medicine 04/20/22
--- OUTSIDE RECORDS SUMMARY | 2025-02-05 14:49 | XMS_ITS | Referral Summary ---
Author Organization [facility] Address [address] [place] [phone] Care Team Providers Care Campaign Analyst Name Role Phone Maikel Monahan MD Primary Care Provider [phone] Encounters Date Type Department Care Team Description 11/20/2024 2:30 PM YOUTH COORDINATOR Office Visit [facility] Medical Group Orthopedics and Sports Medicine [address] [place] [address] [place] [phone] Alicja Cagle NP Primary osteoarthritis of [...] (02/11/2022): Added automatically from request for surgery [id number] Immunizations Immunization Administration Dates Next Due Influenza, Quadrivalent, Hig h Dose, Preservative Free, Intrr 07/03/2020 Influenza, Trivalent, High D ose, Split, Preservative Free, Intramuscular 06/21/2019,07/01/2018,07/06/2017,08/03 Influenza, Trivalent, Preser vative Free, Intramuscular 06/10/2015 Pneumococcal Polysaccharide PPV23 08/03/2016 Tdap 07/01/2018 Social History Tobacco Use Types Packs/Day Years Used Date Smoking Tobacco: Never Smokeless Tobacco: Never Tobacco Cessation:Counseling Given: Not Answered [facility] Utilities Answer Date Recorded In the past 12 months has e [employer], gas, oil, or water [employer] threatened to shut off services in your [...] 06/01/2024 How often do you attend chur or cheondoism services? Patient declined 06/01/2024 Do you belong to any clubs o r organizations such as hindu groups, unions, fraternal or athletic groups, or [...] any time in the past 12 m [facility], were you homeless or living in a care home (including now)? No 06/01/2024 Personal Safety Answer Date Recorded Have you ever been in or are you currently in a harmful physical or emotional relationship or is someone making you feel afraid or unsafe? Denies 05/26/2024 Comments No Sex and Gender Information Value Date Recorded Sex Assigned at Not on file Legal Sex Female 7:59 AM YOUTH COORDINATOR Gender Identity Not on file Sexual Orientation Not on file Last Filed Vital Signs Vital Sign Reading Time Taken Comments Blood Pressure 168/88 11/20/2024 2:23 PM YOUTH COORDINATOR Pulse 59 11/20/2024 2:23 PM YOUTH COORDINATOR Temperature 36.3 C (97.3 F) 05/28/2024 3:54 PM CDT Respiratory Rate 18 05/28/2024 3:54 PM CDT Oxygen Saturation 96% 05/28/2024 3:54 PM CDT Inhaled Oxygen Concentration - - Weight 88.2 kg (194 lb 6.4 oz) 11/20/2024 2:23 P M YOUTH COORDINATOR Height 170.2 cm (5' 7 ) 11/20/2024 2:23 PM YOUTH COORDINATOR Body Mass Index 30.45 11/20/2024 2:23 PM YOUTH COORDINATOR Plan of Treatment Not on file Procedures Procedure Name Priority Date/Time Associated Diagnosis Comments IN ARTHROCENTESIS ASPIR&/INJ MAJOR JT/BURSA W/O US Routine 11/20/2024 2:30 PM YOUTH COORDINATOR Primary osteoarthritis of right knee SCREENING MAMMOGRAM Routine 11/01/2012 9 :19 AM YOUTH COORDINATOR from Last 3 Months or Most Recently Relevant to Health Maintenance Results * IN ARTHROCENTESIS ASPIR&/INJ MAJOR JT/BURSA W/O US (11/20/2024 2:30 PM YOUTH COORDINATOR) Narrative Alicja Cagle NP - 11/20/2024 2:30 PM YOUTH COORDINATOR Alicja Cagle NP 11/20/2024 2:45 PM Large [...] well with no immediate complications Alicja Cagle PROCUREMENT FORESTER IN CLINIC/BEDSIDE ORDER STEPHIE Final Result * Screening Mammogram (11/01/2012 9:19 AM YOUTH COORDINATOR) Anatomical Region Laterality Modality Breast N/A Mammography 11/01/2012 9:19 AM YOUTH COORDINATOR us Historical Provider MD MEEHAN MAMMO PROCEDURES Jacey l Result from Last 3 Months or Most Recently Relevant to Health Maintenance Insurance [facility] Member Subscriber Plan / Payer (Ef fective 2021-Present) Name:Rosita Flores Relation to Subscriber:Self Name:Rosita Flores Payer ID:[id number] (NAIC) Type:MEDICARE RISK OTHER Address: [address] [facility] [employer] [facility] MEDICARE ADVANTAGE [facility] MEDICARE ADVANTAGE Advance Directives For more information, please contact: [phone] * Full Code (Latest Code Status on File) Date Activated Date Inactivated Comments 05/27/2024 1:18 AM 05/28/2024 9:38 PM Care Teams Campaign Analyst Relationship Specialty Start Date End Date Maikel Monahan MD PCP - General Family Practice 07/29/21
== END 2025-02-05 13:35 | disposition home or self-care (01) ==
PROVIDERS: PCP Nurse Practitioner Adult Health; Visit Provider Nurse Practitioner Adult Health
DX: I50.9 Heart failure, unspecified (principal)
CPT/HCPCS: 71046

== ENCOUNTER 2025-02-07 12:00 | Outpatient (CLI) | payer MEDICARE, MEDICAID, SELFPAY ==
[2025-02-07 19:23] LABS: Add Urine Microscopic? YES; Appearance Urine Clear (Clear); Bacteria Urine None Seen /hpf; Bilirubin Urine Negative (Negative); Blood Urine Negative (Negative); Color Urine Yellow (Yellow); Glucose Urine UA Negative (Negative); Ketones Urine Negative (Negative); Leukocyte Esterase Ur 2+ LEU/UL (Negative); Nitrate Urine Negative (Negative); Protein Urine Negative (Negative); RBC Urine 0-2 /hpf (0-2); Specific Grav Ur 1.016 (1.001-1.035); Squamous Epithelial Cell Urine None Seen /hpf (Few); Urobilinogen Urine 0.2 mg/dL (<2.0); WBC Urine 21-50 /hpf (0-3); pH Urine 5.5 (5.0-9.0)
== END 2025-02-07 12:01 | disposition home or self-care (01) ==
PROVIDERS: PCP Nurse Practitioner Adult Health; Visit Provider Nurse Practitioner Adult Health
DX: I50.9 Heart failure, unspecified (principal); R39.9 Unspecified symptoms and signs involving the genitourinary system
CPT/HCPCS: 81001; 87086

== ENCOUNTER 2025-04-08 12:57 | Emergency (ER) | payer MEDICARE, MEDICAID, SELFPAY ==
--- NOTE | ~2025-04-08 | XR_ITS ---
XR chest 2V Ordering provider: Cathy Damico History: 74 years Female with . R rib cage pain s/p fall, PT STATES RT SIDE PAIN . Comparison: February 05, 2025 FINDINGS: MEDIASTINUM: The cardiac silhouette is slightly enlarged. Sliding hiatus hernia. LUNGS: No infiltrates, effusions or pneumothorax. Fibrotic changes with pleural thickening seen in th e left apical area. OTHER: No free air under the diaphragm. Fracture of the left clavicle with deformity is noted. Degene rative the spine. IMPRESSION: No acute cardiopulmonary pathology. Reviewed, dictated and finalized at location A.
--- OUTSIDE RECORDS SUMMARY | 2025-04-08 13:11 | XMS_ITS | Clinical Summary ---
Author Organization [facility] Address [address] [place] [id number] Phone Care Team Providers Care Insulation Board Coater Operator Name Role Phone Maikel Monahan MD Primary Care Provider [phone] Allergies Active Allergy Reactions Criticality Noted Date [...] (05/25/2022): Added automatically from request for surgery [id number] Overactive bladder 09/25/2021 Urinary incontinence 09/25/2021 Atypical [...] on file Legal Sex Female 8:33 AM [facility] Gender Identity Not on file Sexual Orientation Not on file Last Filed Vital Signs Vital Sign Reading Time Taken Comments Blood Pressure 138/80 08/30/2022 9:43 AM BUSINESS SUPPORT Pulse - - Temperature 36.1 C (96.9 F) 08/30/2022 9:43 AM BUSINESS SUPPORT Respiratory Rate 18 08/30/2022 9:43 AM BUSINESS SUPPORT Oxygen Saturation - - Inhaled Oxygen Concentration - - Weight 101 kg (222 lb) 08/30/2022 9:43 AM BUSINESS SUPPORT Height 172.7 cm (5' 8) 08/30/2022 9:43 AM BUSINESS SUPPORT Body Mass Index 33.75 08/30/2022 9:43 AM BUSINESS SUPPORT Plan of Treatment Health Maintenance Due Date Last Done Comments Pneumococcal PPSV23/PCV13 65 + Years / Low and Medium Risk (2 of 3 - PCV) 08/03/2017 08/03/2016 Influenza Vaccine (Season Ended) 2025 06/10/20 15 Insurance [employer] [place] Care Teams Insulation Board Coater Operator Relationship Specialty Start Date End Date Maikel Monahan MD PCP - General Family Medicine 04/20/22
--- OUTSIDE RECORDS SUMMARY | 2025-04-08 13:11 | XMS_ITS | Patient Health Record ---
Author Organization [facility] Address [address] [place] [address] Care Team Providers Care Green Promotions Specialist Name Role Phone Maikel Monahan MD Primary Care Provider Aileen RESENDIZ FORECLOSURE FIELD INSPECTOR, BENJI Unavailable Allergies Allergen (clinical drug ingredient) Drug/Non Drug Allergy documented on EMR Reaction Allergy Type Onset Date Status Adhesive itch/rash Allergy Active Substance with sulfonamide structure and antibacterial mechanism of action (substance) Sulfa Antibiotics nausea and vomiting Drug Allergy Active Reason For Referral No Information Medications Medication SIG (Take, Route, Frequency, Duration) Notes [...] Orally Three times a day Active Zenpep [id number] UNIT as directed Ora lly Take 2 [...] with food Orally Once a day Active Plan Of Treatment No Information Insurance Providers Payer Name Payer Address Payer Phone Subscriber Number Group Number Insured Name Patient Relationship to Insured Coverage Start Date Coverage End Date [employer] Medicare [address] [address] [place], [place] [id number] Rosita Flores Self - patient is the insured [place] - Secondary to Medicare/Med i [address] [address] [place], [place] [id number] Rosita Flores Self - patient is the insured Medical (General) History Medical History History ICD Code asthma gastroesophageal reflux disease (GERD) CKD III depression JONELLE Surgical History Surgery Date(Month/Year) gastric sleeve
--- OUTSIDE RECORDS SUMMARY | 2025-04-08 13:11 | XMS_ITS | Referral Summary ---
Author Organization [facility] Address [address] [place] [phone] Care Team Providers Care Qa Reviewer Name Role Phone Maikel Monahan MD Primary Care Provider [phone] Encounters Date Type Department Care Team Description 02/19/2025 2:30 PM CDT Office Visit [facility] Orthopedics and Sports Medicine [address] [place] [address] [place] [phone] Alicja Cagle NP Primary osteoarthritis of right knee (Primary Dx) from Last 3 Months Allergies Active Allergy Reactions Criticality Noted Date Comments Latex Itching Low 02/10/2022 Sulfa (Sulfonamide Antibiotics) Nausea & Vomiting Low 02/29/2020 Medications metoprolol XL (TOPROL-XL) 25 mg extended release tablet Take 2 tablets (50 mg total) by mouth daily 0 Active cyanocobalamin (Vitamin B-12) 1,000 mcg tablet Take 1 tablet (1,000 mcg total) by mouth daily Active multivitamin capsule Take 1 capsule by mouth daily Active oxybutynin XL (DITROPAN-XL) 5 mg 24 hr tablet Take 1 tablet (5 mg total) by mouth daily 1 Active albuterol HFA (PROVENTIL HFA,VENTOLIN HFA,PROAIR HFA) 90 mcg/actuation inhaler Inhale 2 puffs every 6 (six) hours as needed 1 Active sacubitriL-valsarta n (ENTRESTO) 97-103 mg tablet Take 1 tablet by mouth 2 (two) times a day Active venlafaxine XR (EFFEXOR-XR) 75 mg 24 hr capsule Take 1 capsule (75 mg total) by mouth daily Active cholecalciferol (VITAMIN D-3) 5,000 unit tablet Take by mouth daily Active glucosamine/chondr renner A sod (OSTEO BI-FLEX ORAL) Take [...] IN THE MORNING NEEDED FOR ACID REFLEX 4 Active eszopiclone (LUNESTA) 2 mg tablet TAKE 1 TABLET WITH YOU TO SLEEP LAB ON THE NIGHT OF SLEEP STUDY 5 Active Myrbetriq 25 mg tablet extended release 24 hr Take 1 tablet (25 mg total) by mouth daily 5 Active Myrbetriq 50 mg tablet extended release 24 hr Take 1 tablet (50 mg total) by mouth daily 5 Active ondansetron ODT (ZOFRAN-ODT) 8 mg disintegrating tablet DISSOLVE 1 TABLET IN MOUTH EVERY 12 HOURS NEEDED FOR NAUSEA AND VOMITING 5 Active Active Problems Problem Noted Date Diagnosed Date Abnormal EKG 02/19/2025 Congestive heart failure 02/19/2025 Diarrhea 02/19/2025 Left ventricular systolic dysfunction (LVSD) NSVT (nonsustained ventricular tachycardia) 02/07 Head injury, initial encounter 05/26/2024 Primary osteoarthritis [...] 02/29/2020 Essential hypertension 02/29/2020 Systolic murmur 02/29/2020 Other asthma 03/14/2016 Resolved Problems Problem Noted Date Diagnosed Date Resolved Date Strabismus 02/11/2022 12/29/2022 Overview (02/11/2022): Added automatically from request for surgery [id number] Immunizations Immunization Administration Dates Next Due Influenza, Quadrivalent, Hig h Dose, Preservative Free, Intrr 07/03/2020 Influenza, Trivalent, High D ose, Split, Preservative Free, Intramuscular 06/21/2019,07/01/2018,07/06/2017,08/03 Influenza, Trivalent, Preser vative Free, Intramuscular 06/10/2015 Pneumococcal Polysaccharide PPV23 08/03/2016 Tdap 07/01/2018 Social History Tobacco Use Types Packs/Day Years Used Date Smoking Tobacco: Never Smokeless Tobacco: Never Tobacco Cessation:Counseling Given: Not Answered [facility] Utilities Answer Date Recorded In the past 12 months has [employer], gas, oil, or water [employer] threatened to shut off services in your [...] How often do you attend chur or sabianist services? Patient declined 06/01/2024 Do you belong to any clubs o r organizations such as mormon groups, unions, fraternal or athletic groups, or [...] were you homeless or living in a mcc (including now)? No 06/01/2024 Personal Safety Answer Date Recorded Have you ever been in or are you currently in a harmful physical or emotional relationship or is someone making you feel afraid or unsafe? Denies 05/26/2024 Comments No Sex and Gender Information Value Date Recorded Sex Assigned at Not on file Legal Sex Female 7:59 AM PATHOLOGICAL TECHNICIAN Gender Identity Not on file Sexual Orientation Not on file Last Filed Vital Signs Vital Sign Reading Time Taken Comments Blood Pressure 168/88 11/20/2024 2:23 PM PATHOLOGICAL TECHNICIAN Pulse 59 11/20/2024 2:23 PM PATHOLOGICAL TECHNICIAN Temperature 36.3 C (97.3 F) 05/28/2024 3:54 PM CDT Respiratory Rate 18 05/28/2024 3:54 PM CDT Oxygen Saturation 96% 05/28/2024 3:54 PM CDT Inhaled Oxygen Concentration - - Weight 88.5 kg (195 lb) 02/19/2025 2:28 PM CDT Height 170.2 cm (5' 7.01) 02/19/2025 2:28 PM CD T Body Mass Index 30.53 02/19/2025 2:28 PM CDT Plan of Treatment Not on file Procedures Procedure Name Priority Date/Time Associated Diagnosis Comments [place] ARTHROCENTESIS ASPIR&/INJ MAJOR JT/BURSA W/O US Routine 02/19/2025 2:30 PM CDT Primary osteoarthritis of right knee SCREENING MAMMOGRAM Routine 11/01/2012 9 :19 AM PATHOLOGICAL TECHNICIAN from Last 3 Months or Most Recently Relevant to Health Maintenance Results * [place] ARTHROCENTESIS ASPIR&/INJ MAJOR JT/BURSA W/O US (02/19/2025 2:30 PM CDT) Narrative Tom Franco MD - 02/19/2025 2:30 PM CDT Tom Franco MD 02/20/2025 7:43 AM Large Joint (Hip, Knee, Shoulder) Injection: R [...] Ultrasound guided: No Fluroscopic guidance: No Medications: 3 mL lidocaine 20 mg/mL (2 %); 10 mg methylPREDNISolone acetate 80 mg/mL Patient tolerance: Patient tolerated the procedure well with no immediate complications Alicja Cagle SYSTEM CONTROLLER IN CLINIC/BEDSIDE ORDER STEPHIE Final Result * Screening Mammogram (11/01/2012 9:19 AM PATHOLOGICAL TECHNICIAN) Anatomical Region Laterality Modality Breast N/A Mammography 11/01/2012 9:19 AM PATHOLOGICAL TECHNICIAN Historical Provider MD MEEHAN MAMMO PROCEDURES Jacey l Result from Last 3 Months or Most Recently Relevant to Health Maintenance Insurance [facility] [employer] [facility] MEDICARE ADVANTAGE [employer] [facility] MEDICARE ADVANTAGE Advance Directives For more information, please contact: [phone] * Full Code (Latest Code Status on File) Date Activated Date Inactivated Comments 05/27/2024 1:18 AM 05/28/2024 9:38 PM Care Teams Qa Reviewer Relationship Specialty Start Date End Date Maikel Monahan MD PCP - General Family Practice 07/29/21
--- OUTSIDE RECORDS SUMMARY | 2025-04-08 13:11 | XMS_ITS | Clinical Summary ---
Author Organization [facility] Address [address] [place] [phone] Care Team Providers Care Youth Care Worker Name Role Phone Maikel Monahan MD Primary Care Provider [phone] Allergies Active Allergy Reactions Criticality Noted Date [...] (02/11/2022): Added automatically from request for surgery [id number] Encounters Date Type Department Care Team Description 02/19/2025 2:30 PM CDT Office Visit [facility] Orthopedics and Sports Medicine [address] [place] [phone] Alicja Cagle NP Primary osteoarthritis of right [...] Tobacco: Never Tobacco Cessation:Counseling Given: Not Answered [facility] Utilities Answer Date Recorded In the past 12 months has [employer], gas, oil, or water [employer] threatened to shut off services in your [...] How often do you attend chur or baptist services? Patient declined 06/01/2024 Do you belong to any clubs o r organizations such as hinduism groups, unions, fraternal or athletic groups, or [...] any time in the past 12 m [facility], were you homeless or living in a assisted (including now)? No 06/01/2024 Personal Safety Answer Date Recorded Have you ever been in or are you currently in a harmful physical or emotional relationship or is someone making you feel afraid or unsafe? Denies 05/26/2024 Comments No Sex and Gender Information Value Date Recorded Sex Assigned at Not on file Legal Sex Female 7:59 AM CAN COVERER Gender Identity Not on file Sexual Orientation Not on file Obstetrics History Last Filed Vital Signs Vital Sign Reading Time Taken Comments Blood Pressure 168/88 11/20/2024 2:23 PM CAN COVERER Pulse 59 11/20/2024 2:23 PM CAN COVERER Temperature 36.3 C (97.3 F) 05/28/2024 3:54 PM CDT Respiratory Rate 18 05/28/2024 3:54 PM CDT Oxygen Saturation 96% 05/28/2024 3:54 PM CDT Inhaled Oxygen Concentration - - Weight 88.5 kg (195 lb) 02/19/2025 2:28 PM CDT Height 170.2 cm (5' 7.01) 02/19/2025 2:28 PM CD T Body Mass Index 30.53 02/19/2025 2:28 PM CDT Plan of Treatment Health Maintenance Due Date [...] Procedure Name Priority Date/Time Associated Diagnosis Comments [place] ARTHROCENTESIS ASPIR&/INJ MAJOR JT/BURSA W/O US Routine 02/19/2025 2:30 PM CDT Primary osteoarthritis of right knee SCREENING MAMMOGRAM Routine 11/01/2012 9 :19 AM CAN COVERER from Last 3 Months or Most Recently Relevant to Health Maintenance Results * [place] ARTHROCENTESIS ASPIR&/INJ MAJOR JT/BURSA W/O US (02/19/2025 [...] well with no immediate complications Alicja Cagle EXPORT FREIGHT CLERK IN CLINIC/BEDSIDE ORDER STEPHIE Final Result * Screening Mammogram (11/01/2012 9:19 AM CAN COVERER) Anatomical Region Laterality Modality Breast N/A Mammography 11/01/2012 9:19 AM CAN COVERER us Historical Provider MD MEEHAN MAMMO PROCEDURES Jacey l Result from Last 3 Months or Most Recently Relevant to Health Maintenance Insurance [facility] Member Subscriber Plan / Payer (Ef fective 2021-Present) Name:Rosita Flores Relation to Subscriber:Self Name:Rosita Flores Payer ID:[id number] (NAIC) Type:MEDICARE RISK OTHER Address: [address] [employer] MEDIC[employer] ADVANTAGE [facility] [employer] Advance Directives For more information, please contact: [phone] * Full Code (Latest Code Status on File) Date Activated Date Inactivated Comments 05/27/2024 1:18 AM 05/28/2024 9:38 PM Care Teams Youth Care Worker Relationship Specialty Start Date End Date Maikel Monahan MD PCP - General Family Practice 07/29/21
--- OUTSIDE RECORDS SUMMARY | 2025-04-08 13:11 | XMS_ITS | Continuity of Care Document ---
Author Organization [facility] Address [address] [place] [address] Insurance Providers Payer Plan Claims Address Claims Phone Policy Number Group Number Relation Employer Guarantor Name Guarantor Guarantor Address Guarantor Phone [employer] [address] [address], [place] [address] tel:[phone] Self Rosita Flores 1950 [address] [place] [address] [employer] [address] [address], [place] [address] tel:[phone] Self Rosita Flores 1950 [address] [place] [address] [facility] [employer] [address], [place] [address] tel:[phone] Self Rosita Flores 1950 [address] [place] [address] Problems Unknown Problems Results No Results Allergies, adverse reactions, alerts No known allergies and adverse reactions Medications No administered medications reported Vital Signs Date Vital Result Comment 11/09/2024 Inhaled Oxygen Concentration (3150-0) 21. 0 % N Oxygen Saturation (89897-8) 97 % N Respiratory Rate (9279-1) 20 /min N Heart Rate (8867-4) 70 /min N Blood Pressure Systolic (8480-6) 128 mm[Hg] N Blood Pressure Diastolic (8462-4) 64 mm[Hg] N Body Height (8302-2) 67 [in_i] N Body Weight (90222-0) 187 [lb_av] N Body Mass Index (97743-5) 29.3 kg/m2 N 12/11/2024 Inhaled Oxygen Concentration (3150-0) 21. 0 % N Oxygen Saturation (82720-2) 97 % N Respiratory Rate (9279-1) 18 /min N Heart Rate (8867-4) 72 /min N Blood Pressure Systolic (8480-6) 128 mm[Hg] N Blood Pressure Diastolic (8462-4) 62 mm[Hg] N Body Height (8302-2) 67 [in_i] N Body Weight (68812-0) 184 [lb_av] N Body Mass Index (11319-0) 28.8 kg/m2 N Social History No smoking Hx information available
[2025-04-08 13:24] VITALS: BP 165/82; PULSE 76; RESP 18; TEMP 36.7; O2SAT 97
--- NOTE | 2025-04-08 13:27 | ED_ITS ---
HPI - Fall General Chief Complaint: Fall <Cathy Damico APRN - Last Filed: 04/08/25 13:29> Stated Complaint: Fall, Rib injury <Cathy Damico APRN - Last Filed: 04/08/25 13:29> Time Seen by Provider: 04/08/25 13:25 <Cathy Damico APRN - Last Filed: 04/08/25 13:29> Focused HPI: Patient is a 74-year-old female who presents to the ER after sustaining a fall last night. She reports she tripped on something and hit her right ribcage on the fireplace. Patient reports she did hit her head but reports it is fine. She denies any loss of consciousness, current headache, and is not on blood thinners. Patient endorses pain with inspiration. She endorses a history of high blood pressure. GENERAL: Well-appearing, well-nourished, and in no acute distress. HEAD: Normocephalic, atraumatic. CHEST: No respiratory distress. NEURO: ?Alert and oriented x3. Patient screened in triage and initial orders placed.? ?Additional care and disposition to be based upon?diagnostic testing and treatment. <Cathy Damico APRN - Last Filed: 04/08/25 13:29> History of Present Illness HPI Narrative: as per mse <Christiano Reddy III, DO - Last Filed: 04/08/25 18:48> Related Data Home Medications: Home Medications ?Medication ?Instructions ?Recorded ?Confirmed ?Last Taken ?Type multivitamin 1 tablet PO DAILY 03/22/22 02/05/25 Unknown History vitamin B complex 1 tablet PO DAILY 03/22/22 02/05/25 Unknown History <Cathy Damico APRN - Last Filed: 04/08/25 13:29> Allergies/Adverse Reactions: Allergies Allergy/AdvReac Type Severity Reaction Status Date / Time adhesive tape Allergy Intermediate itch and a Verified 04/08/25 12:58 rash Sulfa (Sulfonamide AdvReac Unknown Nausea Verified 04/08/25 12:58 Antibiotics) <Cathy Damico APRN - Last Filed: 04/08/25 13:29> Review of Systems Review of Systems: All systems reviewed & are unremarkable except as noted in HPI and below <Christiano Reddy III, DO - Last Filed: 04/08/25 18:48> PMFSH Past Medical History Medical History: Medical History Heart failure Asthma Chronic GERD Chronic kidney disease, stage 3 (moderate) Hypertensive chronic kidney disease with stage 1 through stage 4 chronic kidney disease, or unspecified chronic kidney disease Impaired fasting glucose Major depressive disorder JONELLE (obstructive sleep apnea) <Cathy Damico APRN - Last Filed: 04/08/25 13:29> Surgical History Surgical History: Surgical History History of gastric surgery s/p gastric sleeve <Cathy Damico APRN - Last Filed: 04/08/25 13:29> Family History Family History: Family History Mother Family history of diabetes mellitus in first degree relative Father Family history of coronary artery disease <Cathy Damico HOUSING INSPECTORS - Last Filed: 04/08/25 13:29> Social History Social History: Social History Smoking status: Never smoker Second hand tobacco smoke exposure: No Alcohol intake: never Substance use: never Substance use type: does not use Do You Feel Safe in your Home?: Yes Lack of Transportation: No Lack of Food: Never True Current Housing: I Have Housing Concerned About Future Housing: No Difficulty Paying Gas/Electric Bills: No Difficulty Paying for Meds: No Currently Unemployed: No Education: High School Diploma/GED Difficulty w/ Childcare or Family Care: No Living arrangements: alone Occupation/Education: occupation Gender identity (if verbalized by the patient): Female Spiritual care concerns: No Agree to blood products: Yes <Cathy Damico APRN - Last Filed: 04/08/25 13:29> Exam Const: General: healthy appearing and no acute distress <Christiano Reddy III DO - Last Filed: 04/08/25 18:48> Nutritional Appearance: well nourished <Christiano Robson Reddy III, DO - Last Filed: 04/08/25 18:48> Orientation/consciousness: patient oriented x3 <Christiano Robson Reddy III, DO - Last Filed: 04/08/25 18:48> Limitations: no limitations <Christiano Robson Reddy III, DO - Last Filed: 04/08/25 18:48> Chest: Chest palpation & inspection: tenderness rib (right lower anterior and lateral) <Christiano Robson Reddy III, DO - Last Filed: 04/08/25 18:48> Resp: Effort & Inspection: normal respiratory effort <Christiano Robson Reddy III, DO - Last Filed: 04/08/25 18:48> Auscultation: clear to auscultation bilaterally <Christiano Robson Reddy III, DO - Last Filed: 04/08/25 18:48> Cardio: Rate: regular rate <Christiano Robson Reddy III, DO - Last Filed: 04/08/25 18:48> Rhythm: regular rhythm <Christiano Robson Reddy III, DO - Last Filed: 04/08/25 18:48> GI: Auscultation: normal bowel sounds <Christiano Robson Reddy III, DO - Last Filed: 04/08/25 18:48> Other: no ruq pain <Christiano Robson Reddy III, DO - Last Filed: 04/08/25 18:48> Skin: General skin exam: normal color <Christiano Robson Reddy III, DO - Last Filed: 04/08/25 18:48> Wounds: no wounds <Christiano Robson Reddy III, DO - Last Filed: 04/08/25 18:48> Neuro: General: patient oriented x3, moves all extremities and no focal motor deficits <Christiano Robson Reddy III, DO - Last Filed: 04/08/25 18:48> Speech: normal speech <Christiano Robson Reddy III, DO - Last Filed: 04/08/25 18:48> Extrem: General: normal to inspection and no clubbing, cyanosis or edema <Christiano Robson Reddy III, DO - Last Filed: 04/08/25 18:48> Psych: Mental Status: mental status grossly normal <Christiano Robson Reddy III, DO - Last Filed: 04/08/25 18:48> Affect: normal affect <Christiano Robson Reddy III, DO - Last Filed: 04/08/25 18:48> Attitude: cooperative <Christiano Robson Reddy III, DO - Last Filed: 04/08/25 18:48> Course Vital Signs Vital signs: Vital Signs Temperature 98.0 F 04/08/25 13:24 Pulse Rate 76 04/08/25 13:24 Respiratory Rate 18 04/08/25 13:24 Blood Pressure 165/82 H 04/08/25 13:24 Pulse Oximetry 97 04/08/25 13:24 Oxygen Delivery Room Air 04/08/25 13:24 Temperature 98.0 F 04/08/25 13:24 Pulse Rate 76 04/08/25 13:24 Respiratory Rate 18 04/08/25 13:24 Blood Pressure 165/82 H 04/08/25 13:24 Pulse Oximetry 97 04/08/25 13:24 Oxygen Delivery Room Air 04/08/25 13:24 <Cathy Damico, HOUSING INSPECTORS - Last Filed: 04/08/25 13:29> Vital Signs Temperature 98.0 F 04/08/25 13:24 Pulse Rate 76 04/08/25 13:24 Respiratory Rate 18 04/08/25 13:24 Blood Pressure 165/82 H 04/08/25 13:24 Pulse Oximetry 97 04/08/25 13:24 Oxygen Delivery Room Air 04/08/25 13:24 Temperature 98.0 F 04/08/25 13:24 Pulse Rate 76 04/08/25 13:24 Respiratory Rate 18 04/08/25 13:24 Blood Pressure 165/82 H 04/08/25 13:24 Pulse Oximetry 97 04/08/25 13:24 Oxygen Delivery Room Air 04/08/25 13:24 <Christiano Robson Reddy III, DO - Last Filed: 04/08/25 18:48> MDM - Fall MDM Narrative Medical decision making narrative: Pt fell and struck ribs on fireplace last night. cxr neg. contusion vs hairline fx. home on [place]. <Christiano Reddy III, DO - Last Filed: 04/08/25 18:48> Discharge Plan Discharge Clinical Impression: Rib contusion <Cathy Damico, HOUSING INSPECTORS - Last Filed: 04/08/25 13:29> Patient Disposition: Home <Cathy Damico APRN - Last Filed: 04/08/25 13:29> Condition: Stable <Cathy Damico APRN - Last Filed: 04/08/25 13:29> Instructions: Antibiotic Form, Rib Contusion (ED) <Cathy Damico APRN - Last Filed: 04/08/25 13:29> Patient Language: Tristanian <Cathy Damico APRN - Last Filed: 04/08/25 13:29> Prescriptions: New hydrocodone-acetaminophen 5-325 mg tablet 1 tablet PO Q6H PRN (Reason: pain) Qty: 14 0RF No Action bupropion HCl [Wellbutrin XL] 150 mg tablet extended release 24 hr 150 mg PO QAM Qty: 90 3RF hydralazine 25 mg tablet 25 mg PO TID Qty: 90 3RF venlafaxine 150 mg capsule,extended release 24hr 150 mg PO DAILY Qty: 90 3RF eszopiclone [Lunesta] 2 mg tablet 2 mg PO ONCE Qty: 1 0RF Rx Instructions: Take with you to sleep lab on the night of sleep study. ondansetron 8 mg tablet,disintegrating 8 mg PO Q12H PRN (Reason: nausea and vomiting) Qty: 30 0RF multivitamin Tablet 1 tablet PO DAILY vitamin B complex Tablet 1 tablet PO DAILY pantoprazole 40 mg tablet,delayed release (DR/EC) 40 mg PO QAM PRN (Reason: ACID REFLEX) Qty: 90 3RF metoprolol succinate 50 mg tablet extended release 24 hr 50 mg PO DAILY Qty: 90 1RF mirabegron [Myrbetriq] 50 mg tablet extended release 24 hr See Rx Instructions .ROUTE .COMPLEX Qty: 90 3RF Dose Instruction: Take 1 tablet by mouth once daily Rx Instructions: Take 1 tablet by mouth once daily Entresto 97-103 mg tablet See Rx Instructions .ROUTE .COMPLEX Qty: 180 3RF Dose Instruction: Take 1 tablet by mouth twice daily Rx Instructions: Take 1 tablet by mouth twice daily <Cathy Damico APRN - Last Filed: 04/08/25 13:29> Follow-up/Referrals: Milvia Ladd APRN [Primary Care Provider] - <Cathy Damico APRN - Last Filed: 04/08/25 13:29>
--- OUTSIDE RECORDS SUMMARY | 2025-04-08 17:18 | XMS_ITS | Clinical Summary ---
Author Organization [facility] Address [address] [place] [address] Phone Care Team Providers Care Senior Adults Director Name Role Phone Maikel Monahan MD Primary Care Provider [phone] Allergies Active Allergy Reactions Criticality Noted Date [...] (05/25/2022): Added automatically from request for surgery [id number] Overactive bladder 09/25/2021 Urinary incontinence 09/25/2021 Atypical [...] on file Legal Sex Female 8:33 AM [facility] Gender Identity Not on file Sexual Orientation Not on file Last Filed Vital Signs Vital Sign Reading Time Taken Comments Blood Pressure 138/80 08/30/2022 9:43 AM DIVORCE LAWYER Pulse - - Temperature 36.1 C (96.9 F) 08/30/2022 9:43 AM DIVORCE LAWYER Respiratory Rate 18 08/30/2022 9:43 AM DIVORCE LAWYER Oxygen Saturation - - Inhaled Oxygen Concentration - - Weight 101 kg (222 lb) 08/30/2022 9:43 AM DIVORCE LAWYER Height 172.7 cm (5' 8) 08/30/2022 9:43 AM DIVORCE LAWYER Body Mass Index 33.75 08/30/2022 9:43 AM DIVORCE LAWYER Plan of Treatment Health Maintenance Due Date Last Done Comments Pneumococcal PPSV23/PCV13 65 + Years / Low and Medium Risk (2 of 3 - PCV) 08/03/2017 08/03/2016 Influenza Vaccine (Season Ended) 2025 06/10/20 15 Insurance [employer] HMO [place]ICAID - [place] Care Teams Senior Adults Director Relationship Specialty Start Date End Date Maikel Monahan MD PCP - General Family Medicine 04/20/22
--- OUTSIDE RECORDS SUMMARY | 2025-04-08 17:18 | XMS_ITS | Clinical Summary ---
Author Organization [facility] Address [address] [place] [phone] Care Team Providers Care Pedicurist Name Role Phone Maikel Monahan MD Primary Care Provider [phone] Allergies Active Allergy Reactions Criticality Noted Date [...] (02/11/2022): Added automatically from request for surgery [id number] Encounters Date Type Department Care Team Description 02/19/2025 2:30 PM CDT Office Visit [facility] Medical Group Orthopedics and Sports Medicine [address] [place] [phone] Alicja Cagle NP Primary osteoarthritis of right [...] Tobacco Cessation:Counseling Given: Not Answered [facility] Utilities Answer Date Recorded In the past 12 months has [employer], gas, oil, or water [employer] threatened to shut off services in your [...] How often do you attend chur or baptism services? Patient declined 06/01/2024 Do you belong to any clubs o r organizations such as taoist groups, unions, fraternal or athletic groups, or [...] any time in the past 12 m [facility], were you homeless or living in a correction (including now)? No 06/01/2024 Personal Safety Answer Date Recorded Have you ever been in or are you currently in a harmful physical or emotional relationship or is someone making you feel afraid or unsafe? Denies 05/26/2024 Comments No Sex and Gender Information Value Date Recorded Sex Assigned at Not on file Legal Sex Female 7:59 AM RUG HOOKER HAND Gender Identity Not on file Sexual Orientation Not on file Obstetrics History Last Filed Vital Signs Vital Sign Reading Time Taken Comments Blood Pressure 168/88 11/20/2024 2:23 PM RUG HOOKER HAND Pulse 59 11/20/2024 2:23 PM RUG HOOKER HAND Temperature 36.3 C (97.3 F) 05/28/2024 3:54 [...] Procedure Name Priority Date/Time Associated Diagnosis Comments [place] ARTHROCENTESIS ASPIR&/INJ MAJOR JT/BURSA W/O US Routine 02/19/2025 2:30 PM CDT Primary osteoarthritis of right knee SCREENING MAMMOGRAM Routine 11/01/2012 9 :19 AM RUG HOOKER HAND from Last 3 Months or Most Recently Relevant to Health Maintenance Results * [place] ARTHROCENTESIS ASPIR&/INJ MAJOR JT/BURSA W/O US (02/19/2025 [...] well with no immediate complications Alicja Cagle CHEMICAL EQUIPMENT CONTROLLER IN CLINIC/BEDSIDE ORDER STEPHIE Final Result * Screening Mammogram (11/01/2012 9:19 AM RUG HOOKER HAND) Anatomical Region Laterality Modality Breast N/A Mammography 11/01/2012 9:19 AM RUG HOOKER HAND us Historical Provider MD MEEHAN MAMMO PROCEDURES Jacey l Result from Last 3 Months or Most Recently Relevant to Health Maintenance Insurance [employer] Member Subscriber Plan / Payer (Ef fective 2021-Present) Name:Rosita Flores Relation to Subscriber:Self Name:Rosita Flores Payer ID:[id number] (NAIC) Type:MEDICARE RISK OTHER Address: [address] [facility] MEDICARE ADVANTAGE [facility] MEDICARE ADVANTAGE Advance Directives For more information, please contact: [phone] * Full Code (Latest Code Status on File) Date Activated Date Inactivated Comments 05/27/2024 1:18 AM 05/28/2024 9:38 PM Care Teams Pedicurist Relationship Specialty Start Date End Date Maikel Monahan MD PCP - General Family Practice 07/29/21
--- OUTSIDE RECORDS SUMMARY | 2025-04-08 17:18 | XMS_ITS | Referral Summary ---
Author Organization [facility] Address [address] [place] [phone] Care Team Providers Care Opinion Polls Survey Worker Name Role Phone Maikel Monahan MD Primary Care Provider [phone] Encounters Date Type Department Care Team Description 02/19/2025 2:30 PM CDT Office Visit [facility] Medical Group Orthopedics and Sports Medicine [address] [place] [address] [place] [phone] Alicja Cagle NP Primary osteoarthritis of [...] (02/11/2022): Added automatically from request for surgery [id number] Immunizations Immunization Administration Dates Next Due Influenza, Quadrivalent, Hig h Dose, Preservative Free, Intrr 07/03/2020 Influenza, Trivalent, High D ose, Split, Preservative Free, Intramuscular 06/21/2019,07/01/2018,07/06/2017,08/03 Influenza, Trivalent, Preser vative Free, Intramuscular 06/10/2015 Pneumococcal Polysaccharide PPV23 08/03/2016 Tdap 07/01/2018 Social History Tobacco Use Types Packs/Day Years Used Date Smoking Tobacco: Never Smokeless Tobacco: Never Tobacco Cessation:Counseling Given: Not Answered [facility] Utilities Answer Date Recorded In the past 12 months has [employer], gas, oil, or water [employer] threatened to shut off services in your [...] How often do you attend chur or voodoo services? Patient declined 06/01/2024 Do you belong to any clubs o r organizations such as nondenominational groups, unions, fraternal or athletic groups, or [...] any time in the past 12 m [facility], were you homeless or living in a chcf (including now)? No 06/01/2024 Personal Safety Answer Date Recorded Have you ever been in or are you currently in a harmful physical or emotional relationship or is someone making you feel afraid or unsafe? Denies 05/26/2024 Comments No Sex and Gender Information Value Date Recorded Sex Assigned at Not on file Legal Sex Female 7:59 AM DRY CHAIN WORKER Gender Identity Not on file Sexual Orientation Not on file Last Filed Vital Signs Vital Sign Reading Time Taken Comments Blood Pressure 168/88 11/20/2024 2:23 PM DRY CHAIN WORKER Pulse 59 11/20/2024 2:23 PM DRY CHAIN WORKER Temperature 36.3 C (97.3 F) 05/28/2024 3:54 [...] Procedure Name Priority Date/Time Associated Diagnosis Comments [place] ARTHROCENTESIS ASPIR&/INJ MAJOR JT/BURSA W/O US Routine 02/19/2025 2:30 PM CDT Primary osteoarthritis of right knee SCREENING MAMMOGRAM Routine 11/01/2012 9 :19 AM DRY CHAIN WORKER from Last 3 Months or Most Recently Relevant to Health Maintenance Results * [place] ARTHROCENTESIS ASPIR&/INJ MAJOR JT/BURSA W/O US (02/19/2025 [...] well with no immediate complications Alicja Cagle TEST KITCHEN HOME ECONOMIST IN CLINIC/BEDSIDE ORDER STEPHIE Final Result * Screening Mammogram (11/01/2012 9:19 AM DRY CHAIN WORKER) Anatomical Region Laterality Modality Breast N/A Mammography 11/01/2012 9:19 AM DRY CHAIN WORKER Historical Provider MD MEEHAN MAMMO PROCEDURES Jacey l Result from Last 3 Months or Most Recently Relevant to Health Maintenance Insurance [facility] IDPA IDPA [facility] MEDICARE ADVANTAGE [facility] Address: [address] [address] [place] [address] IDPA [facility] MEDICARE ADVANTAGE [facility] Address: [address] [address] [place] [address] Advance Directives For more information, please contact: [phone] * Full Code (Latest Code Status on File) Date Activated Date Inactivated Comments 05/27/2024 1:18 AM 05/28/2024 9:38 PM Care Teams Opinion Polls Survey Worker Relationship Specialty Start Date End Date Maikel Monahan MD PCP - General Family Practice 07/29/21
== END 2025-04-08 17:36 | disposition home or self-care (01) ==
LOC: ANHED 17:17
PROVIDERS: Emergency Provider Emergency Medicine; PCP Nurse Practitioner Adult Health
DX: S20.219A Contusion of unspecified front wall of thorax, initial encounter (principal); I13.0 Hypertensive heart and chronic kidney disease with heart failure and stage 1 through stage 4 chronic kidney disease, or unspecified chronic kidney disease; N18.30 Chronic kidney disease, stage 3 unspecified; I50.9 Heart failure, unspecified; W01.198A Fall on same level from slipping, tripping and stumbling with subsequent striking against other object, initial encounter
CPT/HCPCS: 71046; 99283

== ENCOUNTER 2025-04-10 10:09 | Emergency (ER) | payer MEDICARE, MEDICAID, SELFPAY ==
--- NOTE | ~2025-04-10 | XR_ITS ---
CHEST RADIOGRAPH, PA AND LATERAL CLINICAL HISTORY: recent rib fx;RT SIDE RIB PAIN ONSET AFTER FALL TUESDAY NIGHT . COMPARISON: None available TECHNIQUE: PA and lateral views of the chest. FINDINGS Small hiatal hernia. The remainder of the cardiomediastinal silhouette is otherwise unremarkable. The lungs are clear. IMPRESSION: No focal infiltrate or effusion. Reviewed, dictated and finalized at location A.
[2025-04-10 10:14] VITALS: BP 125/92; PULSE 71; RESP 18; TEMP 36.6; O2SAT 96
--- OUTSIDE RECORDS SUMMARY | 2025-04-10 10:29 | XMS_ITS | Clinical Summary ---
Author Organization [facility] Address [address] [place] [address] Phone Care Team Providers Care Silver Holloware Assembler Name Role Phone Maikel Monahan MD Primary Care Provider [phone] Allergies Active Allergy Reactions Criticality Noted Date [...] (05/25/2022): Added automatically from request for surgery [id number] Overactive bladder 09/25/2021 Urinary incontinence 09/25/2021 Atypical [...] on file Legal Sex Female 8:33 AM [facility] Gender Identity Not on file Sexual Orientation Not on file Last Filed Vital Signs Vital Sign Reading Time Taken Comments Blood Pressure 138/80 08/30/2022 9:43 AM MANAGER SALES AND MARKETING Pulse - - Temperature 36.1 C (96.9 F) 08/30/2022 9:43 AM MANAGER SALES [employer] MARKETING Respiratory Rate 18 08/30/2022 9:43 AM MANAGER SALES AND MARKETING Oxygen Saturation - - Inhaled Oxygen Concentration - - Weight 101 kg (222 lb) 08/30/2022 9:43 AM MANAGER SALES AND MARKETING Height 172.7 cm (5' 8) 08/30/2022 9:43 AM MANAGER SALES AND MARKETING Body Mass Index 33.75 08/30/2022 9:43 AM MANAGER SALES AND MARKETING Plan of Treatment Health Maintenance Due Date Last Done Comments Pneumococcal PPSV23/PCV13 65 + Years / Low and Medium Risk (2 of 3 - PCV) 08/03/2017 08/03/2016 Influenza Vaccine (Season Ended) 2025 06/10/20 15 Insurance [employer] HMO [place]ICA[place] - [place] Care Teams Silver Holloware Assembler Relationship Specialty Start Date End Date Maikel Monahan MD PCP - General Family Medicine 04/20/22
--- OUTSIDE RECORDS SUMMARY | 2025-04-10 10:29 | XMS_ITS | Clinical Summary ---
Author Organization [facility] Address [address] [place] [phone] Care Team Providers Care Salon Leader Name Role Phone Maikel Monahan MD Primary Care Provider [phone] Allergies Active Allergy Reactions Criticality Noted Date [...] (02/11/2022): Added automatically from request for surgery [id number] Encounters Date Type Department Care Team Description 02/19/2025 2:30 PM CDT Office Visit [facility] Orthopedics and Sports Medicine [address] [place] [phone] Alicja Cagle NP Primary osteoarthritis of right [...] Tobacco: Never Tobacco Cessation:Counseling Given: Not Answered [facility] Utilities Answer Date Recorded In the past 12 months has [employer], gas, oil, or water [employer] threatened to shut off services in your [...] How often do you attend chur or yarsani services? Patient declined 06/01/2024 Do you belong to any clubs o r organizations such as oriental orthodox groups, unions, fraternal or athletic groups, or [...] any time in the past 12 m [facility], were you homeless or living in a snf (including now)? No 06/01/2024 Personal Safety Answer Date Recorded Have you ever been in or are you currently in a harmful physical or emotional relationship or is someone making you feel afraid or unsafe? Denies 05/26/2024 Comments No Sex and Gender Information Value Date Recorded Sex Assigned at Not on file Legal Sex Female 7:59 AM GRAPPLE YARDER OPERATOR Gender Identity Not on file Sexual Orientation Not on file Obstetrics History Last Filed Vital Signs Vital Sign Reading Time Taken Comments Blood Pressure 168/88 11/20/2024 2:23 PM GRAPPLE YARDER OPERATOR Pulse 59 11/20/2024 2:23 PM GRAPPLE YARDER OPERATOR Temperature 36.3 C (97.3 F) 05/28/2024 3:54 [...] Fall Risk Assessment 05/28/2025 05/28/2024 Influenza Vaccine (#1) 2025 , 07/03/2020, 07/03/2020, Additional history exists DTaP/Tdap/Td Vaccine (2 - Td or Tdap) 07/01/2028 07/01/2018 Breast Cancer Screening-Mammogram Discontinued 013 Procedures Procedure Name Priority Date/Time Associated Diagnosis Comments [place] ARTHROCENTESIS ASPIR&/INJ MAJOR JT/BURSA W/O US Routine 02/19/2025 2:30 PM CDT Primary osteoarthritis of right knee SCREENING MAMMOGRAM Routine 11/01/2012 9 :19 AM GRAPPLE YARDER OPERATOR from Last 3 Months or Most Recently Relevant to Health Maintenance Results * [place] ARTHROCENTESIS ASPIR&/INJ MAJOR JT/BURSA W/O US (02/19/2025 [...] well with no immediate complications Alicja Cagle HOSPICE MUSIC THERAPIST IN CLINIC/BEDSIDE ORDER STEPHIE Final Result * Screening Mammogram (11/01/2012 9:19 AM GRAPPLE YARDER OPERATOR) Anatomical Region Laterality Modality Breast N/A Mammography 11/01/2012 9:19 AM GRAPPLE YARDER OPERATOR us Historical Provider MD MEEHAN MAMMO PROCEDURES Jacey l Result from Last 3 Months or Most Recently Relevant to Health Maintenance Insurance [facility] Member Subscriber Plan / Payer (Ef fective 2021-Present) Name:Rosita Flores Relation to Subscriber:Self Name:Rosita Flores Payer ID:[id number] (NAIC) Type:MEDICARE RISK OTHER Address: [address] [employer]FL [facility] MEDICARE ADVANTAGE [facility] MEDICARE ADVANTAGE Advance Directives For more information, please contact: [phone] * Full Code (Latest Code Status on File) Date Activated Date Inactivated Comments 05/27/2024 1:18 AM 05/28/2024 9:38 PM Care Teams Salon Leader Relationship Specialty Start Date End Date Maikel Monahan MD PCP - General Family Practice 07/29/21
--- OUTSIDE RECORDS SUMMARY | 2025-04-10 10:29 | XMS_ITS | Patient Health Record ---
Author Organization [facility] Address [address] [place] [address] Care Team Providers Care Code Enforcement Supervisor Name Role Phone Maikel Monahan MD Primary Care Provider Aileen RESENDIZ CAR RENTAL AGENT, BENJI Unavailable Allergies Allergen (clinical drug ingredient) [...] Orally Three times a day Active Zenpep 99018-581015 UNIT as directed Ora lly Take 2 [...] End Date [employer] Medicare [address] [address] [place], [place] [id number] Rosita Flores Self - patient is the insured Medicaid-[place] - Secondary to Medicare/Med i [address] [address] [place], [place] [id number] Rosita Flores Self - patient is the insured Medical (General) History Medical History History ICD Code asthma gastroesophageal reflux disease (GERD) CKD III depression JONELLE Surgical History Surgery Date(Month/Year) gastric sleeve
--- OUTSIDE RECORDS SUMMARY | 2025-04-10 10:29 | XMS_ITS | Referral Summary ---
Author Organization [facility] Address [address] [place] [phone] Care Team Providers Care Rodent Control Worker Name Role Phone Maikel Monahan MD Primary Care Provider [phone] Encounters Date Type Department Care Team Description 02/19/2025 2:30 PM CDT Office Visit [facility] Medical Group Orthopedics and Sports Medicine [address] [place] [address] [place] [phone] Alicja Cagle NP Primary osteoarthritis of [...] (02/11/2022): Added automatically from request for surgery [id number] Immunizations Immunization Administration Dates Next Due Influenza, Quadrivalent, Hig h Dose, Preservative Free, Intrr 07/03/2020 Influenza, Trivalent, High D ose, Split, Preservative Free, Intramuscular 06/21/2019,07/01/2018,07/06/2017,08/03 Influenza, Trivalent, Preser vative Free, Intramuscular 06/10/2015 Pneumococcal Polysaccharide PPV23 08/03/2016 Tdap 07/01/2018 Social History Tobacco Use Types Packs/Day Years Used Date Smoking Tobacco: Never Smokeless Tobacco: Never Tobacco Cessation:Counseling Given: Not Answered [facility] Utilities Answer Date Recorded In the past 12 months has [employer], gas, oil, or water [employer] threatened to shut off services in your [...] How often do you attend chur or roman catholic services? Patient declined 06/01/2024 Do you belong to any clubs o r organizations such as buddhist groups, unions, fraternal or athletic groups, or [...] any time in the past 12 m [facility], were you homeless or living in a retirement (including now)? No 06/01/2024 Personal Safety Answer Date Recorded Have you ever been in or are you currently in a harmful physical or emotional relationship or is someone making you feel afraid or unsafe? Denies 05/26/2024 Comments No Sex and Gender Information Value Date Recorded Sex Assigned at Not on file Legal Sex Female 7:59 AM PLASTER MOLD MAKER Gender Identity Not on file Sexual Orientation Not on file Last Filed Vital Signs Vital Sign Reading Time Taken Comments Blood Pressure 168/88 11/20/2024 2:23 PM PLASTER MOLD MAKER Pulse 59 11/20/2024 2:23 PM PLASTER MOLD MAKER Temperature 36.3 C (97.3 F) 05/28/2024 3:54 [...] Procedure Name Priority Date/Time Associated Diagnosis Comments [place] ARTHROCENTESIS ASPIR&/INJ MAJOR JT/BURSA W/O US Routine 02/19/2025 2:30 PM CDT Primary osteoarthritis of right knee SCREENING MAMMOGRAM Routine 11/01/2012 9 :19 AM PLASTER MOLD MAKER from Last 3 Months or Most Recently Relevant to Health Maintenance Results * [place] ARTHROCENTESIS ASPIR&/INJ MAJOR JT/BURSA W/O US (02/19/2025 [...] well with no immediate complications Alicja Cagle ROUSTABOUT CREW LEADER IN CLINIC/BEDSIDE ORDER STEPHIE Final Result * Screening Mammogram (11/01/2012 9:19 AM PLASTER MOLD MAKER) Anatomical Region Laterality Modality Breast N/A Mammography 11/01/2012 9:19 AM PLASTER MOLD MAKER Historical Provider MD MEEHAN MAMMO PROCEDURES Jacey l Result from Last 3 Months or Most Recently Relevant to Health Maintenance Insurance [facility] IDPA IDPA [facility] MEDICARE ADVANTAGE IDPA [facility] MEDICARE ADVANTAGE Advance Directives For more information, please contact: [phone] * Full Code (Latest Code Status on File) Date Activated Date Inactivated Comments 05/27/2024 1:18 AM 05/28/2024 9:38 PM Care Teams Rodent Control Worker Relationship Specialty Start Date End Date Maikel Monahan MD PCP - General Family Practice 07/29/21
[2025-04-10] MEDS: oxyCODONE/ACETAMINOPHEN (*CRX) 5-325 MG TABLET 1 TABLET PO (10:35)
--- OUTSIDE RECORDS SUMMARY | 2025-04-10 11:03 | XMS_ITS | Clinical Summary ---
Author Organization [facility] Address [address] [place] [phone] Care Team Providers Care Manager Ems Name Role Phone Maikel Monahan MD Primary Care Provider [phone] Allergies Active Allergy Reactions Criticality Noted Date [...] (02/11/2022): Added automatically from request for surgery [id number] Encounters Date Type Department Care Team Description 02/19/2025 2:30 PM CDT Office Visit [facility] Medical Group Orthopedics and Sports Medicine [address] [place] [phone] Alicja Cagle NP Primary osteoarthritis of right [...] Tobacco: Never Tobacco Cessation:Counseling Given: Not Answered [facility] Utilities Answer Date Recorded In the past 12 months has [employer], gas, oil, or water [employer] threatened to shut off services in your [...] any clubs o r organizations such as samaritan groups, unions, fraternal or athletic groups, or [...] any time in the past 12 m [facility], were you homeless or living [...] on file Legal Sex Female 7:59 AM LENS GRINDER Gender Identity Not on file Sexual Orientation Not on file Obstetrics History Last Filed Vital Signs Vital Sign Reading Time Taken Comments Blood Pressure 168/88 11/20/2024 2:23 PM LENS GRINDER Pulse 59 11/20/2024 2:23 PM LENS GRINDER Temperature 36.3 C (97.3 F) 05/28/2024 3:54 [...] Procedure Name Priority Date/Time Associated Diagnosis Comments [place] ARTHROCENTESIS ASPIR&/INJ MAJOR JT/BURSA W/O US Routine 02/19/2025 2:30 PM CDT Primary osteoarthritis of right knee SCREENING MAMMOGRAM Routine 11/01/2012 9 :19 AM LENS GRINDER from Last 3 Months or Most Recently Relevant to Health Maintenance Results * [place] ARTHROCENTESIS ASPIR&/INJ MAJOR JT/BURSA W/O US (02/19/2025 [...] well with no immediate complications Alicja Cagle TAR POT WORKER IN CLINIC/BEDSIDE ORDER STEPHIE Final Result * Screening Mammogram (11/01/2012 9:19 AM LENS GRINDER) Anatomical Region Laterality Modality Breast N/A Mammography 11/01/2012 9:19 AM LENS GRINDER us Historical Provider MD MEEHAN MAMMO PROCEDURES Jacey l Result from Last 3 Months or Most Recently Relevant to Health Maintenance Insurance [facility] Member Subscriber Plan / Payer (Ef fective 2021-Present) Name:Rosita Flores Relation to Subscriber:Self Name:Rosita Flores Payer ID:[id number] (NAIC) Type:MEDICARE RISK OTHER Address: [address] [employer] [facility] MEDICARE ADVANTAGE [facility] MEDICARE ADVANTAGE Advance Directives For more information, please contact: [phone] * Full Code (Latest Code Status on File) Date Activated Date Inactivated Comments 05/27/2024 1:18 AM 05/28/2024 9:38 PM Care Teams Manager Ems Relationship Specialty Start Date End Date Maikel Monahan MD PCP - General Family Practice 07/29/21
--- OUTSIDE RECORDS SUMMARY | 2025-04-10 11:03 | XMS_ITS | Clinical Summary ---
Author Organization [facility] Address [address] [place] [phone] Phone Care Team Providers Care Trailer Tank Truck Driver Name Role Phone Maikel Monahan MD Primary Care Provider [phone] Allergies Active Allergy Reactions Criticality Noted Date [...] (05/25/2022): Added automatically from request for surgery [id number] Overactive bladder 09/25/2021 Urinary incontinence 09/25/2021 Atypical [...] on file Legal Sex Female 8:33 AM [facility] Gender Identity Not on file Sexual Orientation Not on file Last Filed Vital Signs Vital Sign Reading Time Taken Comments Blood Pressure 138/80 08/30/2022 9:43 AM RENEWABLE ENERGY DIVISION MANAGER Pulse - - Temperature 36.1 C (96.9 F) 08/30/2022 9:43 AM RENEWABLE ENERGY DIVISION MANAGER Respiratory Rate 18 08/30/2022 9:43 AM RENEWABLE ENERGY DIVISION MANAGER Oxygen Saturation - - Inhaled Oxygen Concentration - - Weight 101 kg (222 lb) 08/30/2022 9:43 AM RENEWABLE ENERGY DIVISION MANAGER Height 172.7 cm (5' 8) 08/30/2022 9:43 AM RENEWABLE ENERGY DIVISION MANAGER Body Mass Index 33.75 08/30/2022 9:43 AM RENEWABLE ENERGY DIVISION MANAGER Plan of Treatment Health Maintenance Due Date Last Done Comments Pneumococcal PPSV23/PCV13 65 + Years / Low and Medium Risk (2 of 3 - PCV) 08/03/2017 08/03/2016 Influenza Vaccine (Season Ended) 2025 06/10/20 15 Insurance [employer] HMO [place]ICAID - [place] Care Teams Trailer Tank Truck Driver Relationship Specialty Start Date End Date Maikel Monahan MD PCP - General Family Medicine 04/20/22
--- OUTSIDE RECORDS SUMMARY | 2025-04-10 11:03 | XMS_ITS | Referral Summary ---
Author Organization [facility] Address [address] [place] [address] Care Team Providers Care General Neurologist Name Role Phone Maikel Monahan MD Primary Care Provider [phone] Encounters Date Type Department Care Team Description 02/19/2025 2:30 PM CDT Office Visit [facility] Orthopedics and Sports Medicine [address] [place] [address] [place] [address] Alicja Cagle NP Primary osteoarthritis of [...] (02/11/2022): Added automatically from request for surgery [id number] Immunizations Immunization Administration Dates Next Due Influenza, Quadrivalent, Hig h Dose, Preservative Free, Intrr 07/03/2020 Influenza, Trivalent, High D ose, Split, Preservative Free, Intramuscular 06/21/2019,07/01/2018,07/06/2017,08/03 Influenza, Trivalent, Preser vative Free, Intramuscular 06/10/2015 Pneumococcal Polysaccharide PPV23 08/03/2016 Tdap 07/01/2018 Social History Tobacco Use Types Packs/Day Years Used Date Smoking Tobacco: Never Smokeless Tobacco: Never Tobacco Cessation:Counseling Given: Not Answered [facility] Utilities Answer Date Recorded In the past 12 months has [employer], gas, oil, or water Active [employer] threatened to shut off services in your [...] How often do you attend chur or mosque services? Patient declined 06/01/2024 Do you belong to any clubs o r organizations such as catholic groups, unions, fraternal or athletic groups, or [...] any time in the past 12 m [facility], were you homeless or living [...] on file Legal Sex Female 7:59 AM CARE AID Gender Identity Not on file Sexual Orientation Not on file Last Filed Vital Signs Vital Sign Reading Time Taken Comments Blood Pressure 168/88 11/20/2024 2:23 PM CARE AID Pulse 59 11/20/2024 2:23 PM CARE AID Temperature 36.3 C (97.3 F) 05/28/2024 3:54 [...] Procedure Name Priority Date/Time Associated Diagnosis Comments [place] ARTHROCENTESIS ASPIR&/INJ MAJOR JT/BURSA W/O US Routine 02/19/2025 2:30 PM CDT Primary osteoarthritis of right knee SCREENING MAMMOGRAM Routine 11/01/2012 9 :19 AM CARE AID from Last 3 Months or Most Recently Relevant to Health Maintenance Results * [place] ARTHROCENTESIS ASPIR&/INJ MAJOR JT/BURSA W/O US (02/19/2025 [...] well with no immediate complications Alicja Cagle CHARGEBACK ANALYST IN CLINIC/BEDSIDE ORDER STEPHIE Final Result * Screening Mammogram (11/01/2012 9:19 AM CARE AID) Anatomical Region Laterality Modality Breast N/A Mammography 11/01/2012 9:19 AM CARE AID Historical Provider MD MEEHAN MAMMO PROCEDURES Ajcey l Result from Last 3 Months or Most Recently Relevant to Health Maintenance Insurance [employer] IDPA [facility] MEDICARE ADVANTAGE IDPA [facility] MEDICARE ADVANTAGE Advance Directives For more information, please contact: [phone] * Full Code (Latest Code Status on File) Date Activated Date Inactivated Comments 05/27/2024 1:18 AM 05/28/2024 9:38 PM Care Teams General Neurologist Relationship Specialty Start Date End Date Maikel Monahan MD PCP - General Family Practice 07/29/21
[2025-04-10 11:08] VITALS: BP 125/92; PULSE 68; RESP 18; O2SAT 98
--- NOTE | 2025-04-10 11:08 | ED_ITS ---
HPI - General Adult General Chief complaint: Unspecified Stated complaint: broken rib Time Seen by Provider: 04/10/25 10:26 History of Present Illness HPI narrative: Patient is a 74-year-old female who presents ER with pain to the right chest related to a broken rib that was diagnosed a few days ago. Reports her Ermine is not working. She has pain with physical movements. She takes 1 deep breath an hour to help prevent pneumonia. No incentive spirometry testing performed earlier. Feels like she is warm and could be getting an infection. No productive cough. No documented fever. Related Data Home Medications ?Medication ?Instructions ?Recorded ?Confirmed ?Last Taken ?Type multivitamin 1 tablet PO DAILY 03/22/22 02/05/25 Unknown History vitamin B complex 1 tablet PO DAILY 03/22/22 02/05/25 Unknown History Allergies Allergy/AdvReac Type Severity Reaction Status Date / Time adhesive tape Allergy Intermediate itch and a Verified 04/10/25 10:19 rash Sulfa (Sulfonamide AdvReac Unknown Nausea Verified 04/10/25 10:19 Antibiotics) [facility] Past Medical History Medical History Heart failure Asthma Chronic GERD Chronic kidney disease, stage 3 (moderate) Hypertensive chronic kidney disease with stage 1 through stage 4 chronic kidney disease, or unspecified chronic kidney disease Impaired fasting glucose Major depressive disorder JONELLE (obstructive sleep apnea) Surgical History Surgical History History of gastric surgery s/p gastric sleeve Family History Family History Mother Family history of diabetes mellitus in first degree relative Father Family history of coronary artery disease Social History Social History Smoking status: Never smoker Second hand tobacco smoke exposure: No Alcohol intake: never Substance use: never Substance use type: does not use Do You Feel Safe in your Home?: Yes Lack of Transportation: No Lack of Food: Never True Current Housing: I Have Housing Concerned About Future Housing: No Difficulty Paying Gas/Electric Bills: No Difficulty Paying for Meds: No Currently Unemployed: No Education: High School Diploma/GED Difficulty w/ Childcare or Family Care: No Living arrangements: alone Occupation/Education: occupation Gender identity (if verbalized by the patient): Female Spiritual care concerns: No Agree to blood products: Yes Exam Narrative: GENERAL: Well-appearing, well-nourished, and in no acute distress. Holding ice pack against right chest wall where rib fracture nis. HEAD: Normocephalic, atraumatic. ENT: Mucous membranes moist. NECK: Supple. CHEST: Clear to auscultation. No respiratory distress. HEART: Regular rate and rhythm. Normal peripheral pulses. EXTREMITIES: Normal range of motion. No edema. NEURO: Alert and oriented x3. PSYCH: Normal mood and affect. Course Course Emergency Course: No pneumonia. Received incentive spirometry teaching. Pain controlled with Percocet. Discharge. Vital Signs Vital signs: Vital Signs Temperature 97.8 F 04/10/25 10:14 Pulse Rate 71 04/10/25 10:14 Respiratory Rate 18 04/10/25 10:14 Blood Pressure 125/92 H 04/10/25 10:14 Pulse Oximetry 96 04/10/25 10:14 Oxygen Delivery Room Air 04/10/25 10:14 Temperature 97.8 F 04/10/25 10:14 Pulse Rate 68 04/10/25 11:08 Respiratory Rate 18 04/10/25 11:08 Blood Pressure 125/92 H 04/10/25 11:08 Pulse Oximetry 98 04/10/25 11:08 Oxygen Delivery Room Air 04/10/25 10:14 Medical Decision Making Vital Signs Vital Signs: Vital Signs Temperature 97.8 F 04/10/25 10:14 Pulse Rate 71 04/10/25 10:14 Respiratory Rate 18 04/10/25 10:14 Blood Pressure 125/92 H 04/10/25 10:14 Pulse Oximetry 96 04/10/25 10:14 Oxygen Delivery Room Air 04/10/25 10:14 Temperature 97.8 F 04/10/25 10:14 Pulse Rate 68 04/10/25 11:08 Respiratory Rate 18 04/10/25 11:08 Blood Pressure 125/92 H 04/10/25 11:08 Pulse Oximetry 98 04/10/25 11:08 Oxygen Delivery Room Air 04/10/25 10:14 Imaging Data Radiologist's impression: ITS Impressions Chest X-Ray 04/10/25 11:02 IMPRESSION: No focal infiltrate or effusion. Discharge Plan Discharge Clinical Impression: Uncontrolled pain, Fracture of rib Patient Disposition: Home Condition: Stable Instructions: Rib Fracture (ED) Additional Instructions: Please return to the emergency department if you develop severe and persistent chest pain, difficulty breathing, dizziness, leg swelling or if you are coughing up blood as these can be signs of a medical emergency. Please call your doctor for a follow up appointment to determine the need for further testing. Patient Language: Azeri Prescriptions: New oxycodone-acetaminophen [Percocet] 5-325 mg tablet 1 tablet PO Q6H PRN (Reason: pain) Qty: 14 0RF No Action bupropion HCl [Wellbutrin XL] 150 mg tablet extended release 24 hr 150 mg PO QAM Qty: 90 3RF hydralazine 25 mg tablet 25 mg PO TID Qty: 90 3RF venlafaxine 150 mg capsule,extended release 24hr 150 mg PO DAILY Qty: 90 3RF eszopiclone [Lunesta] 2 mg tablet 2 mg PO ONCE Qty: 1 0RF Rx Instructions: Take with you to sleep lab on the night of sleep study. ondansetron 8 mg tablet,disintegrating 8 mg PO Q12H PRN (Reason: nausea and vomiting) Qty: 30 0RF multivitamin Tablet 1 tablet PO DAILY vitamin B complex Tablet 1 tablet PO DAILY hydrocodone-acetaminophen 5-325 mg tablet 1 tablet PO Q6H PRN (Reason: pain) Qty: 14 0RF pantoprazole 40 mg tablet,delayed release (DR/EC) 40 mg PO QAM PRN (Reason: ACID REFLEX) Qty: 90 3RF metoprolol succinate 50 mg tablet extended release 24 hr 50 mg PO DAILY Qty: 90 1RF mirabegron [Myrbetriq] 50 mg tablet extended release 24 hr See Rx Instructions .ROUTE .COMPLEX Qty: 90 3RF Dose Instruction: Take 1 tablet by mouth once daily Rx Instructions: Take 1 tablet by mouth once daily Entresto 97-103 mg tablet See Rx Instructions .ROUTE .COMPLEX Qty: 180 3RF Dose Instruction: Take 1 tablet by mouth twice daily Rx Instructions: Take 1 tablet by mouth twice daily Follow-up/Referrals: Milvia Ladd APRN [Primary Care Provider] - 1 Week
== END 2025-04-10 12:36 | disposition home or self-care (01) ==
PROVIDERS: Emergency Provider Emergency Medicine; PCP Nurse Practitioner Adult Health
DX: S22.31XD Fracture of one rib, right side, subsequent encounter for fracture with routine healing (principal); I13.0 Hypertensive heart and chronic kidney disease with heart failure and stage 1 through stage 4 chronic kidney disease, or unspecified chronic kidney disease; I50.9 Heart failure, unspecified; N18.30 Chronic kidney disease, stage 3 unspecified; J45.909 Unspecified asthma, uncomplicated; G47.33 Obstructive sleep apnea (adult) (pediatric); K21.9 Gastro-esophageal reflux disease without esophagitis; F32.9 Major depressive disorder, single episode, unspecified; X58.XXXD Exposure to other specified factors, subsequent encounter
CPT/HCPCS: 71046; 99283; A9270

== ENCOUNTER 2025-06-26 15:03 | Outpatient (CLI) | payer MEDICARE, MEDICAID, SELFPAY ==
--- OUTSIDE RECORDS SUMMARY | 2025-06-26 15:48 | XMS_ITS | Patient Health Record ---
Author Organization [facility] Address [facility] [facility] [address] [facility] [address] [place] [address] Care Team Providers Care Lawn Mower Mechanic Name Role Phone Owen Spaulding Unavailable [phone] Reason For Referral No Information Plan Of Treatment No Information
--- OUTSIDE RECORDS SUMMARY | 2025-06-26 15:49 | XMS_ITS | Continuity of Care Document ---
Author Organization [facility] Address [address] [place] [address] Insurance Providers Payer Plan Claims Address Claims Phone Policy Number Group Number Relation Employer Guarantor Name Guarantor Guarantor Address Guarantor Phone [employer] [address] [address], [place] [address] tel:[phone] Self Rosita Flores 1950 [address] [place] [address] [employer] [address] [address], [place] [address] tel:[phone] Self Rosita Flores 1950 [address] [place] [address] [facility] [address], [place] [address] tel:[phone] Self Rosita Flores 1950 [address] [place] [address] Problems Unknown Problems Results No Results Allergies, adverse reactions, alerts No known allergies and adverse reactions Medications No administered medications reported Vital Signs Date Vital Result Comment 11/09/2024 Inhaled Oxygen Concentration (3150-0) 21. 0 % N Oxygen Saturation (64931-4) 97 % N Respiratory Rate (9279-1) 20 /min N Heart Rate (8867-4) 70 /min N Blood Pressure Systolic (8480-6) 128 mm[Hg] N Blood Pressure Diastolic (8462-4) 64 mm[Hg] N Body Height (8302-2) 67 [in_i] N Body Weight (19150-1) 187 [lb_av] N Body Mass Index (58758-1) 29.3 kg/m2 N 12/11/2024 Inhaled Oxygen Concentration (3150-0) 21. 0 % N Oxygen Saturation (16794-4) 97 % N Respiratory Rate (9279-1) 18 /min N Heart Rate (8867-4) 72 /min N Blood Pressure Systolic (8480-6) 128 mm[Hg] N Blood Pressure Diastolic (8462-4) 62 mm[Hg] N Body Height (8302-2) 67 [in_i] N Body Weight (26735-5) 184 [lb_av] N Body Mass Index (81250-9) 28.8 kg/m2 N Social History No smoking Hx information available
--- OUTSIDE RECORDS SUMMARY | 2025-06-26 15:49 | XMS_ITS | Clinical Summary ---
Author Organization [facility] Address [facility] [place] [address] Care Team Providers Care Spice Miller Name Role Phone Maikel Monahan MD Primary Care Provider [phone] Matt Suazo MD Unavailable [phone] Eliceo Connolly MD Unavailable [phone] Allergies Active Allergy Reactions Criticality Noted Date [...] NEEDED FOR NAUSEA AND VOMITING 5 Active spironolactone (ALDACTONE) 25 mg tablet Take 1 tablet (25 mg total) by mouth daily Active Hospital, Clinic, or Other Facility Administered Medication Ordered Dose Route Frequency Start Date End Date Status triamcinolone acetonide extended release (ZILRETTA ER) intra-articular injection 32 mgIndications:Primar y osteoarthritis of right knee 32 mg intra-artic One-Time Injection 05/28/2025 5 Ended lidocaine (XYLOCAINE) 20 mg/mL (2 %) injection 2 mLIndications:Admini stration of Local Anesthesia 2 mL One-Time Injection 05/28/2025 5 Ended Active Problems Problem Noted Date [...] (02/11/2022): Added automatically from request for surgery [id number] Encounters Date Type Department Care Team Description 06/20/2025 9:30 AM CDT Office Visit [facility] Orthopedics and Sports Medicine [address] [place] [address] [address] [address] Tom Franco MD Primary osteoarthritis of right knee (Primary Dx) 06/20/2025 7:39 AM CDT - 06/20/2025 11:59 PM CDT Hospital Encounter [facility] Orthopedics and Sports Medicine [address] [place] [address] [address] [address] Discharge Disposition: Discharge to home or self care 06/20/2025 Telephone [facility] Orthopedics and Sports Medicine [address] [place] [address] [address] [address] Tom Franco MD 05/28/2025 3:30 PM CDT Office Visit [facility] Orthopedics and Sports Medicine [address] [place] [address] [address] [address] Lisa Lang PA Primary osteoarthritis of right knee (Primary Dx) 05/10/2025 Telephone [facility] Orthopedics and Sports Medicine [address] [place] [address] [address] [address] Lisa Lang PA from Last 3 Months Immunizations Immunization Administration [...] Never Tobacco Cessation:Counseling Given: Not Answered [facility] Utilities Answer Date Recorded In the past 12 months has th e [employer], gas, oil, or water [employer] threatened to shut off services in your home? No 06/01/2024 Social Connection and Isolation Panel Answer Date Recorded In a typical week, how many times do you talk on the phone with family, friends, or neighbors? More than three times a week 06/01/2024 How often do you get togethe r with friends or relatives? More than three times a week 06/01/2024 How often do you attend chur ch or mandaen services? Patient declined 06/01/2024 Do you belong to any clubs o r organizations such as denominational groups, unions, fraternal or athletic groups, or [...] any time in the past 12 m [facility], were you homeless or living in a skilled nursing (including now)? No 06/01/2024 Personal Safety Answer Date Recorded Have you ever been in or are you currently in a harmful physical or emotional relationship or is someone making you feel afraid or unsafe? Denies 05/26/2024 Comments No Sex and Gender Information Value Date Recorded Sex Assigned at Not on file Legal Sex Female 7:59 AM PHARMACY SALES ASSISTANT Gender Identity Not on file Sexual Orientation Not on file Obstetrics History Last Filed Vital Signs Vital Sign Reading Time Taken Comments Blood Pressure 138/80 06/20/2025 9:25 AM CDT Pulse 63 06/20/2025 9:25 AM CDT Temperature 36.3 C (97.3 F) 05/28/2024 3:54 PM CDT Respiratory Rate 18 05/28/2024 3:54 PM CDT Oxygen Saturation 96% 05/28/2024 3:54 PM CDT Inhaled Oxygen Concentration - - Weight 88.5 kg (195 lb) 06/20/2025 9:25 AM CDT Height 167.6 cm (5' 6) 06/20/2025 9:25 AM CDT Body Mass Index 31.47 06/20/2025 9:25 AM CDT Plan of Treatment Health Maintenance Due Date Last Done Comments Colon Cancer Screening-Colonoscopy 1950 Depression Screening 1950 Hepatitis C Screening 1950 Osteoporosis Screening-Bone Density Scan 1950 Hepatitis B Screening 1967 Well Visit 65+ 2014 Pneumococcal vaccine 65+ (2 of 2 - PCV) 08/03/2017 08/03/2016 Fall Risk Assessment 05/28/2025 05/28/2024 Covid-19 Vaccine (6 - 2024-2 6 season) 2025 08/01/2024, 05/27/2021, 02/10/2021, Additional history exists Influenza Vaccine (#1) 2025 , 06/30/2023, 07/20/2021, Additional history exists DTaP/Tdap/Td Vaccine (2 - Td or Tdap) 07/01/2028 07/01/2018 Breast Cancer Screening-Mammogram Discontinued 013 Zoster Vaccine Completed 11/25/2023, 07/23/2023 Procedures Procedure Name Priority Date/Time Associated Diagnosis Comments XR KNEE RIGHT 4 OR MORE VIEWS Schedule Routine, Read Routine (OP Routine) 06/20/2025 9:35 AM CDT Primary osteoarthritis of right knee NM ARTHROCENTESIS ASPIR&/INJ MAJOR JT/BURSA W/O US Routine 05/28/2025 3:30 PM CDT Primary osteoarthritis of right knee SCREENING MAMMOGRAM Routine 11/01/2012 9 :19 AM PHARMACY SALES ASSISTANT from Last 3 Months or Most Recently Relevant to Health Maintenance Results * XR Knee Right 4 or More Views (06/20/2025 9:35 AM CDT) Anatomical Region Laterality Modality Lower Extremities, Knee Right Digital Radiography Narrative 06/20/2025 2:38 PM CDT Advanced right knee valgus osteoarthritis with zevx-vy-lekv contact, osteophyte formation, subluxation. us Tom Franco MD IMG XR PROCEDURES Final Result * NM ARTHROCENTESIS ASPIR&/INJ MAJOR JT/BURSA W/O US (05/28/2025 3:30 PM CDT) Narrative Lisa Lang PA - 05/28/2025 3:30 PM CDT Lisa Lang PA 05/28/2025 3:45 PM Large Joint (Hip, Knee, Shoulder) Injection: R knee Performed by: Lisa Lang PA Authorized by: Lisa Lang PA Large Joint Injection/Aspiration: Consent Given by: Patient Site marked: the procedure site was marked Timeout: prior to procedure the correct patient, procedure, and site was verified Verbal consent obtained: Yes Supporting Documentation: Indications: Pain Procedure Details: Location: Knee Site: R knee Needle Size: 22 G Approach: Anterolateral Ultrasound guided: No Fluroscopic guidance: No Medications: 2 mL lidocaine 20 mg/mL (2 %); 32 mg triamcinolone acetonide extended release 32 mg Patient tolerance: Patient tolerated the procedure well with no immediate complications Lisa VALDIVIA IN CLINIC/BEDSIDE ORD ERABLES Final Result * Screening Mammogram (11/01/2012 9:19 AM PHARMACY SALES ASSISTANT) Anatomical Region Laterality Modality Breast N/A Mammography 11/01/2012 9:19 AM PHARMACY SALES ASSISTANT Historical Provider MD MEEHAN MAMMO PROCEDURES Jacey l Result from Last 3 Months or Most Recently Relevant to Health Maintenance Insurance [facility] Member Subscriber Plan / Payer ( fective 2021-Present) Name:Rosita Flores Relation to Subscriber:Self Name:Rosita Flores Payer ID:[id number] (NAIC) Type:MEDICARE RISK OTHER Address: [address] IDPA [facility] MEDICARE ADVANTAGE [employer] [facility] MEDICARE ADVANTAGE Advance Directives For more information, please contact: [phone] * Full Code (Latest Code Status on File) Date Activated Date Inactivated Comments 05/27/2024 1:18 AM 05/28/2024 9:38 PM Care Teams Spice Miller Relationship Specialty Start Date End Date Maikel Monahan MD PCP - General Family Practice 07/29/21 Matt Suazo MD [address] [place] [address] [address] Consulting Physician Cardiovascular Disease 06/20/25 Eliceo Connolly MD [facility] [address] [place] [address] Referring Physician Nephrology 06/20/25
--- OUTSIDE RECORDS SUMMARY | 2025-06-26 15:49 | XMS_ITS | Patient Health Record ---
Author Organization [facility] Address [address] [place] [address] Care Team Providers Care Gelatin Dynamite Packing Operator Name Role Phone Maikel Monahan MD Primary Care Provider Aileen RESENDIZ STRAP SEWER, BENJI Unavailable [phone] Allergies Allergen (clinical drug ingredient) Drug/Non Drug [...] MOUTH THREE TIMES DAILY NEEDED FOR ABDOMINAL PAIN; Duration: 30 Active Spironolactone 25 MG 1 tablet Orally Active Jardiance 10 MG 1 tablet in the morning Orally Once a day Active hydrALAZINE HCl 50 MG 1 tablet with food Orally Three times a day Active Zenpep [id number] UNIT as directed Ora lly Take 2 with meals and 1 with snacks. Max 8/day; Duration: 30 days 09/09/2023 Active Vitamin D3 Active [...] minutes before morning meal Orally Once a day; Duration: 30 days february 10/06/2023 Active oxyBUTYnin Chloride [...] End Date [employer] Medicare [address] [address] [place], [place] [id number] Rosita Flores Self - patient is the insured Medicaid-[place] - Secondary to Medicare/Med i [address] [address] [place], [place] [id number] Rosita Flores Self - patient is the insured Medical (General) History Medical History History ICD Code asthma gastroesophageal reflux disease (GERD) CKD III depression JONELLE Surgical History Surgery Date(Month/Year) gastric sleeve
--- OUTSIDE RECORDS SUMMARY | 2025-06-26 15:49 | XMS_ITS | Clinical Summary ---
Author Organization [facility] Address [address] [place] [address] Phone Care Team Providers Care Instrument Repair Technician Name Role Phone Maikel Monahan MD Primary Care Provider [phone] Allergies Active Allergy Reactions Criticality Noted Date [...] (05/25/2022): Added automatically from request for surgery [id number] Overactive bladder 09/25/2021 Urinary incontinence 09/25/2021 Atypical [...] on file Legal Sex Female 8:33 AM [facility] Gender Identity Not on file Sexual Orientation Not on file Last Filed Vital Signs Vital Sign Reading Time Taken Comments Blood Pressure 138/80 08/30/2022 9:43 AM STAND UP COMEDIAN Pulse - - Temperature 36.1 C (96.9 F) 08/30/2022 9:43 AM STAND UP COMEDIAN Respiratory Rate 18 08/30/2022 9:43 AM STAND UP COMEDIAN Oxygen Saturation - - Inhaled Oxygen Concentration - - Weight 101 kg (222 lb) 08/30/2022 9:43 AM STAND UP COMEDIAN Height 172.7 cm (5' 8) 08/30/2022 9:43 AM STAND UP COMEDIAN Body Mass Index 33.75 08/30/2022 9:43 AM STAND UP COMEDIAN Plan of Treatment Health Maintenance Due Date Last Done Comments Pneumococcal PPSV23/PCV13 65 + Years / Low and Medium Risk (2 of 3 - PCV) 08/03/2017 08/03/2016 Influenza Vaccine (#1) 2025 06/10/2015 Insurance [employer] - [place] Care Teams Instrument Repair Technician Relationship Specialty Start Date End Date Maikel Monahan MD PCP - General Family Medicine 04/20/22
[2025-06-26 18:45] LABS: Albumin Level 4.5 g/dL (3.5-5.1); Anion Gap 9 mmol/L (4-12); Blood Urea Nitrogen 30 mg/dL (7-17); Calcium 9.5 mg/dL (8.4-10.2); Carbon Dioxide 26 mmol/L (22-30); Chloride 106 mmol/L (98-107); Estimated Glomerular Filt Rate 30; Glucose 123 mg/dL (65-110); Potassium 4.8 mmol/L (3.4-5.0); Sodium 141 mmol/L (137-145)
[2025-06-26 18:50] LABS: Total Protein Urine Random 10 mg/dL; Ur Ttl Prot Creatinine Ratio 0.05 mg/mg (0-0.20)
[2025-06-26 18:54] LABS: Parathyroid Intact 113.8 pg/mL (14.5-75.2)
== END 2025-06-26 15:04 | disposition home or self-care (01) ==
PROVIDERS: PCP Nurse Practitioner Adult Health; Visit Provider Internal Medicine Nephrology
DX: I12.9 Hypertensive chronic kidney disease with stage 1 through stage 4 chronic kidney disease, or unspecified chronic kidney disease (principal); N18.32 Chronic kidney disease, stage 3b; N25.81 Secondary hyperparathyroidism of renal origin; E55.9 Vitamin D deficiency, unspecified
CPT/HCPCS: 36415; 80069; 82306; 82570; 83970; 84156